=== PATIENT | male | born 1975 | race Caucasian/White ===

== ENCOUNTER 2016-10-16 08:04 | Day surgery (SDC) | payer MEDICAID, OTHER ==
[2016-10-11 09:10] VITALS: BMI 30.8
[~2016-10-16 08:04] MED LIST: LACTATED RINGERS 1,000 ML IV SCH; LIDOCAINE 1% 20 ML VIAL (10MG/ML) FOR IV START INTRADERMA PRN
[2016-10-16 08:37] VITALS: RESP 16; TEMP 97.7
[2016-10-16] MEDS ORDERED: PROPOFOL 10 MG/ML 20 ML VIAL IV ONE (09:04)
[2016-10-16] MEDS ORDERED: LIDOCAINE 1% INJ 10MG/ML (20 ML MDV) ONE (09:04)
[2016-10-16] MEDS ORDERED: MIDAZOLAM 2 MG/2 ML VIAL ONE (09:04)
--- NOTE | 2016-10-16 09:14 | P.GSHP ---
History of Present Illness H&P Date: 10/16/16 Chief Complaint: Change in bowel habits Patient here today for colonoscopy. He has never had 1 previously. He is having frequent diarrhea and this is a definite change in his bowel habits. Denies rectal bleeding. No family history of cancer polyps or colitis. Past Medical History Past Medical History: GERD/Reflux, Osteoarthritis (OA) History of Any Multi-Drug Resistant Organisms: None Reported Past Surgical History: Hernia Repair, Tonsillectomy Additional Past Surgical History / Comment(s): RIGHT AND LEFT EAR SURGERY, SINUS SURGERY,ORIF LEFT WRIST, LEFT HAND SURGERY, Past Anesthesia/Blood Transfusion Reactions: No Reported Reaction Past Psychological History: No Psychological Hx Reported Smoking Status: Former smoker Past Alcohol Use History: Rare Additional Past Alcohol Use History / Comment(s): STARTED SMOKING AT AGE 14 QUIT 2010 SMOKED 1PPD Past Drug Use History: Marijuana Additional Drug Use History / Comment(s): MEDICAL CARD MARIJUANA - Past Family History Mother Family Medical History: No Reported History Medications and Allergies Home Medications Medication Instructions Recorded Confirmed Type Amoxicillin 875 mg PO Q12HR 10/11/16 10/11/16 History Cyclobenzaprine [Flexeril] 10 mg PO HS PRN 10/11/16 10/11/16 History Meloxicam [Mobic] 7.5 mg PO DAILY 10/11/16 10/11/16 History Pantoprazole Sodium [Protonix] 40 mg PO DAILY 10/11/16 10/11/16 History traMADol HCL [Ultram] 100 mg PO Q6HR PRN 10/11/16 10/11/16 History Allergies Allergy/AdvReac Type Severity Reaction Status Date / Time bacitracin Allergy Rash/Hives Verified 10/16/16 08:13 cephalexin [From Keflex] Allergy Rash/Hives Verified 10/16/16 08:13 codeine Allergy Rash/Hives Verified 10/16/16 08:13 Iodinated Contrast Media - Allergy Rash/Hives Verified 10/16/16 08:13 Oral and neomycin Allergy Rash/Hives Verified 10/16/16 08:13 [From Neosporin ([id number])] polymyxin B Allergy Rash/Hives Verified 10/16/16 08:13 [From Neosporin ([id number])] shellfish derived [Shellfish] Allergy Rash/Hives Verified 10/16/16 08:13 Surgical - Exam Vital Signs Temp Pulse Resp BP Pulse Ox 97.7 F 66 16 139/81 96 10/16/16 08:36 10/16/16 08:36 10/16/16 08:36 10/16/16 08:36 10/16/16 08:36 Physical exam: General: Well-developed, well-nourished HEENT: Normocephalic, sclerae nonicteric Abdomen: Nontender, nondistended Extremities: No edema Neuro: Alert and oriented Assessment and Plan (1) Change in bowel habits Narrative/Plan: Will proceed with colonoscopy today. Risks of bleeding and perforation discussed. Status: Acute
--- NOTE | 2016-10-16 09:29 | P.PCN ---
Date of Procedure: 10/16/16 Procedure(s) Performed: PREOPERATIVE DIAGNOSIS: Change in bowel habits POSTOPERATIVE DIAGNOSIS: Normal exam PROCEDURE: Colonoscopy with biopsy ANESTHESIA: MAC SURGEON: Farshad Smith M.D. SPECIMENS: Random colon ENDOSCOPIC PROCEDURE: The patient was placed on the endoscopy table in the left decubitus position. The Olympus colonoscope was inserted into the anus and passed under direct visualization to the base of the cecum. The appendiceal orifice was visualized. From that point the scope was slowly withdrawn inspecting all surfaces carefully. There were no neoplastic inflammatory or polypoid lesions throughout the cecum, ascending, transverse, descending, sigmoid and rectum. Random biopsies were taken throughout the colon to rule out microscopic colitis. There was no diverticulosis noted. Digital rectal examination was normal. The patient was taken to the recovery room in stable condition per anesthesia guidelines. RECOMMENDATIONS: Await biopsy results.
[2016-10-16 09:51] VITALS: BP 103/74; PULSE 68
== END 2016-10-16 10:35 | disposition home or self-care (01) ==
LOC: ORWHC2ENDO 08:04
PROVIDERS: ATTEND Surgery
DX: R19.7 Diarrhea, unspecified (principal); K21.9 Gastro-esophageal reflux disease without esophagitis; F17.200 Nicotine dependence, unspecified, uncomplicated; M19.90 Unspecified osteoarthritis, unspecified site; Z79.1 Long term (current) use of non-steroidal anti-inflammatories (NSAID); Z79.2 Long term (current) use of antibiotics; Z79.899 Other long term (current) drug therapy; Z88.5 Allergy status to narcotic agent; Z88.8 Allergy status to other drugs, medicaments and biological substances; Z88.1 Allergy status to other antibiotic agents; Z91.041 Radiographic dye allergy status
CPT/HCPCS: 88305; 45380; J2250; J2001; J2704; 99153

== ENCOUNTER → 2016-10-23 | Outpatient (CLI) | payer OTHER ==
--- NOTE | 2016-10-23 21:17 | MR ---
EXAMINATION TYPE: MR lumbar spine wo con DATE OF EXAM: 10/23/2016 4:02 PM COMPARISON: NONE HISTORY: LBP, BLE radic for years, no trauma/surgery TECHNIQUE: Multiplanar, multisequence images of the lumbar spine were acquired. L1-L2: Normal disc appearance without desiccation. No herniation, protrusion or disc bulging. No ca nal stenosis is present. Foramina are patent bilaterally. L2-L3: Normal disc appearance without desiccation. No herniation, protrusion or disc bulging. No ca nal stenosis is present. Foramina are patent bilaterally. L3-L4: Normal disc appearance without desiccation. No herniation, protrusion or disc bulging. No ca nal stenosis is present. Foramina are patent bilaterally. L4-L5: Moderate disc desiccation noted. Right paracentral disc herniation subligamentous in location effaces the ventral thecal sac. There is no evidence for central stenosis or lateral recess stenosis. Mild right foraminal encroachment. L5-S1: Normal disc appearance without desiccation. No herniation, protrusion or disc bulging. No ca nal stenosis is present. Foramina are patent bilaterally. Lumbar segments are intact. No paraspinal masses are identified. Conus medullaris has a normal appe arance. IMPRESSION: Moderate disc desiccation noted. Right paracentral disc herniation subligamentous in location effaces the ventral thecal sac. There is no evidence for central stenosis or lateral recess stenosis. Mild r ight foraminal encroachment.
== END | disposition home or self-care (01) ==
LOC: RADMRIMAIN 15:12
PROVIDERS: ATTEND Family Medicine
DX: M51.16 Intervertebral disc disorders with radiculopathy, lumbar region (principal)
CPT/HCPCS: 72148

== ENCOUNTER 2016-12-12 07:46 | Day surgery (SDC) | payer MEDICAID ==
[2016-11-26 14:53] VITALS: BMI 30.8
[~2016-12-12 07:46] MED LIST changes: +DEXAMETHASONE SOD PHOSPHATE 10 MG/ML 1 ML VIAL IV ONE; +DEXAMETHASONE SOD PHOSPHATE 4 MG/ML 1 ML VIAL IV ONE; +FAMOTIDINE 20 MG/2 ML VIAL IV ONE; +FAMOTIDINE 20 MG/2 ML VIAL IV PRN; +HYDROmorphone 1 MG/ML 1 ML SYRINGE IVP PRN; +MIDAZOLAM 2 MG/2 ML VIAL IV PRN; +ONDANSETRON 4 MG/2 ML VIAL IVP ONE
[2016-12-12] MEDS ORDERED: OXYMETAZOLINE 0.05% NASL SPRAY 15 ML EA NOSTRIL ONE (08:39)
[2016-12-12] MEDS ORDERED: NEOSTIGMINE 1 MG/ML 10 ML VIAL ONE (09:26)
[2016-12-12] MEDS ORDERED: PROPOFOL 10 MG/ML 20 ML VIAL IV ONE (09:26)
[2016-12-12] MEDS ORDERED: GLYCOPYRROLATE 0.2 MG/ML 2 ML VIAL ONE (09:26)
[2016-12-12] MEDS ORDERED: ROCURONIUM BROMIDE 10 MG/ML 10 ML VIAL IV ONE (09:26)
[2016-12-12] MEDS ORDERED: LIDOCAINE 1% INJ 10MG/ML (20 ML MDV) ONE (09:26)
[2016-12-12] MEDS ORDERED: MIDAZOLAM 2 MG/2 ML VIAL ONE (09:26)
[2016-12-12] MEDS ORDERED: fentaNYL (PF) 50 MCG/ML 2 ML AMP ONE (09:26)
[2016-12-12] MEDS ORDERED: SUCCINYLCHOLINE CHLORIDE 100 MG/5 ML SYR IV ONE (09:26)
[2016-12-12] MEDS ORDERED: LIDOCAINE 1%-EPI 1:100,000 20 ML VIAL SQ ONE ×2 (09:44)
[2016-12-12] MEDS ORDERED: FLUORESCEIN STRIPS 1 MG STRIP MISCELLANE ONE (09:44)
[2016-12-12] MEDS ORDERED: CIPROFLOXACIN-DEXAMETH 0.3-0.1% DROPS 7.5 ML BTL RIGHT EAR ONE (09:44)
[2016-12-12] MEDS ORDERED: EPINEPHrine 1 MG/ML (MDV) 30 ML VIAL TOPICAL ONE (09:45)
[2016-12-12] MEDS ORDERED: GELATIN SPONGE,ABSORB (SMALL) 1 EACH SPONGE TOPICAL ONE (09:57)
[2016-12-12 10:53] VITALS: TEMP 97.1
--- NOTE | 2016-12-12 11:00 | P.OP ---
Date of Procedure: 12/12/16 Preoperative Diagnosis: Right tympanic membrane perforation with persistent eustachian tube dysfunction Chronic sinusitis Right-sided otorrhea Conductive hearing loss right ear ALLERGIC rhinitis Postoperative Diagnosis: Same Procedure(s) Performed: Right tympanoplasty with lysis of middle ear adhesions Right direct microscopic tympanostomy and tube placement Right eustachian tuboplasty, balloon Bilateral functional endoscopic sinus surgery of the maxillary, ethmoid (total) , and frontal sinuses Anesthesia: GETA Surgeon: Edmund Knowles Estimated Blood Loss (ml): 5 Pathology: other (Sinonasal) Condition: stable Disposition: PACU Indications for Procedure: This patient presented to the office with a variety of different issues. Patient complains of nasal obstruction right-sided hearing loss otorrhea etc. he was found have a perforated eardrum in the right ear with persistent otorrhea from a chronic infection. He was found have a conductive hearing loss also. He does have a history of ALLERGIES but has developed a chronic sinus drainage. After long discussion, we decided to proceed forward with a right tympanoplasty with lysis of middle ear adhesions along with a tube placement for ventilation would be controlled. A right-sided eustachian tuboplasty was recommended along with revisional functional endoscopic sinus surgery. All risks, benefits, and alternative therapies were discussed in detail. Consent was obtained and all questions were answered. Operative Findings: Patient had a large right perforated eardrum along with middle ear adhesions. The eustachian tube orifice was edematous. Patient had evidence of chronic sinusitis of the maxillary ethmoid and frontal sinuses. Sphenoid sinuses did not show any evidence of infectious issues. Description of Procedure: This patient was taken to the operative room and placed in the supine position. A general inhalation anesthetic is administered to the patient by mask and subsequently intubated with a cuffed endotracheal tube by the department of anesthesia with a functioning IV line in place. The patient was monitored throughout the entire case by the department of anesthesia. The right ear was sterilely prepped and draped in usual fashion. The ear canal was injected with lidocaine 1% with epinephrine 1 100,000. A large posterior perforation was noted in the right ear. The rim of the perforation was removed with a house pack and biopsy forceps. A tympanomeatal flap was developed and the eardrum was elevated. The middle ear was entered and all small adhesions were noted which were lysed with a house pack. We filled the middle ear with cut Gelfoam. We then placed a bio design graft that was cut to size and placed it as an underlay graft. The tympanomeatal flap was then reflected back into her normal anatomic position. A small tympanostomy incision was made inferiorly and anteriorly and an ultraseal tube was placed. The ear canal was filled with cut Gelfoam. A Josue pack was placed in the ear which will be removed when the patient returns to the office in 1 week. Attention was then paid to the nose were with use of endoscopic visualization we injected the lateral nasal wall with lidocaine 1% with epinephrine 1 100,000. The examine the nose with a 0 endoscope and performed all procedures with endoscopic visualization. We identified the eustachian tube orifice and with use of the neck Claritin balloon we did insufflation 3 times with 1 minute per insufflation. The eustachian tube orifice was insufflated appropriately. The balloon was removed and the sinuses were inspected. There was some polypoid material and was blocking the maxillary sinuses we open the maxillary sinuses with a microdebrider bilaterally and we entered the maxillary sinuses and we remove diseased tissue from the maxillary sinuses bilaterally with endoscopic visualization. We then completed a total ethmoidectomy with removal of all septations and removal of diseased tissue from the ethmoid sinuses bilaterally. I see ethmoid sinuses were opened bilaterally and all diseased tissue and septations were removed bilaterally we entered the frontal sinuses and open the nasal frontal duct and we explored the frontal sinuses and we remove diseased tissue from the orifice of the frontal sinus. The sphenoid sinus appeared open and functioning well. The patient tolerated this well. Xerogel was inserted bilaterally. The patient tolerated this well. Patient will return in 1 week for bilateral Josue ear pack removals. The Josue packs are a Merocel sponge sponge packs this in the ear canal. We will remove those packs and the patient will start on ofloxacin drops afterwards. Patient is to contact me if any from should arise.
[2016-12-12] MEDS ORDERED: ONDANSETRON 4 MG/2 ML VIAL IVP ONE (11:11)
[2016-12-12] MEDS: HYDROmorphone 1 MG/ML 1 ML SYRINGE IVP PRN ×2 (11:12→11:21)
[2016-12-12 11:17] VITALS: RESP 18
[2016-12-12] MEDS ORDERED: LACTATED RINGERS 1,000 ML IV ONE (11:24)
[2016-12-12] MEDS ORDERED: IBUPROFEN 200 MG TAB PO ONE ×2 (12:29)
[2016-12-12 14:37] VITALS: BP 106/63; PULSE 70
== END 2016-12-12 14:42 | disposition home or self-care (01) ==
LOC: OR 07:46
PROVIDERS: ATTEND Otolaryngology
DX: H72.91 Unspecified perforation of tympanic membrane, right ear (principal); H69.91 Unspecified Eustachian tube disorder, right ear; J32.9 Chronic sinusitis, unspecified; H92.11 Otorrhea, right ear; H90.2 Conductive hearing loss, unspecified; J30.9 Allergic rhinitis, unspecified; K21.9 Gastro-esophageal reflux disease without esophagitis; E78.00 Pure hypercholesterolemia, unspecified; E78.5 Hyperlipidemia, unspecified; G89.29 Other chronic pain; Z79.2 Long term (current) use of antibiotics; Z79.899 Other long term (current) drug therapy; Z88.8 Allergy status to other drugs, medicaments and biological substances; Z88.1 Allergy status to other antibiotic agents; Z88.5 Allergy status to narcotic agent; Z91.013 Allergy to seafood; Z91.041 Radiographic dye allergy status; Z87.891 Personal history of nicotine dependence
CPT/HCPCS: 88305; 69631; 69949; 31267; 31255; 31276; C1763; J0171; J2250; J1100; J2710; J2405; J2001; J3010; J1170; J0330; J2704

== ENCOUNTER 2017-06-03 13:33 | Emergency (ER) | payer MEDICAID ==
[2017-06-03 13:57] VITALS: RESP 18
[2017-06-03] MEDS ORDERED: MORPHINE SULFATE 4 MG/ML SYRINGE IVP STA (14:37)
[2017-06-03] MEDS ORDERED: KETOROLAC 30 MG/ML 1 ML VIAL IVP STA (14:37)
[2017-06-03] MEDS ORDERED: ONDANSETRON 4 MG/2 ML VIAL IVP STA (14:37)
[2017-06-03] MEDS ORDERED: SODIUM CHLORIDE 0.9% 2,000 ML IV STA (14:37)
--- NOTE | 2017-06-03 14:47 | ED ---
Abdominal Pain HPI - General Chief Complaint: Abdominal Pain Stated Complaint: Back and Groin Pain Time Seen by Provider: 06/03/17 14:11 Source: patient Mode of arrival: ambulatory Limitations: no limitations - History of Present Illness Initial Comments: Patient is a 41-year-old male who presents with a chief complaint of groin pain. He states that his groin pain is worse on the left than on the right though he does have pain on both sides. He states the pain radiates to the back. Is unable to characterize his pain though he states that this is been going on for about 2 weeks now, worse over the last 3 or 4 days. He states that there is nothing aggravating or alleviating. Patient takes tramadol for pain at home and he states that normally this takes the edge off however yesterday he did not. Timing is constant. Patient has a significant history of bilateral inguinal hernia repairs were done several years ago. He states that the left was done before the right, and he thinks that was done in 2002. Patient states that he recently had his DOT physical when they found him to have blood in his urine. Patient states that he is supposed to schedule an ultrasound on an outpatient basis for evaluation of his bladder. MD Complaint: abdominal pain Onset/Timin -: week(s) Location: suprapubic Radiation: back Migration to: no migration Quality: aching, sharp Consistency: constant Improves With: nothing Worsens With: nothing Associated Symptoms: nausea, chills - Related Data Home Medications Medication Instructions Recorded Confirmed Cyclobenzaprine [Flexeril] 10 mg PO HS PRN 10/11/16 06/03/17 Pantoprazole Sodium [Protonix] 40 mg PO QAM 10/11/16 06/03/17 traMADol HCL [Ultram] 50 mg PO Q6HR PRN 10/11/16 06/03/17 Albuterol Inhaler [Ventolin Hfa 1 - 2 puff INHALATION RT-QID PRN 06/03/17 Inhaler] Budesonide-Formot 160-4.5 Mcg 2 puff INHALATION RT-BID 06/03/17 06/03/17 [Symbicort 160-4.5 Mcg Inhaler] Fluticasone Nasal Ke[place] [Flonase 1 spray EA NOSTRIL DAILY PRN 06/03/17 06/03/17 Nasal Ke[place]] Montelukast [Singulair] 10 mg PO HS 06/03/17 06/03/17 Previous Rx's Medication Instructions Recorded Ciprofloxacin Ophth Soln [Cipro 1 drops BOTH EYES Q4HR #1 bottle 06/03/17 0.3% Ophth Soln] Ibuprofen [Motrin] 0 mg PO Q6HR #30 tab 06/03/17 Allergies Allergy/AdvReac Type Severity Reaction Status Date / Time bacitracin Allergy Rash/Hives Verified 06/03/17 13:58 cephalexin [From Keflex] Allergy Rash/Hives Verified 06/03/17 13:58 codeine Allergy Rash/Hives Verified 06/03/17 13:58 Iodinated Contrast- Oral and Allergy Rash/Hives Verified 06/03/17 13:58 IV Dye [Iodinated Contrast Media - Oral and] neomycin Allergy Rash/Hives Verified 06/03/17 13:58 [From Neosporin ([id number])] polymyxin B Allergy Rash/Hives Verified 06/03/17 13:58 [From Neosporin ([id number])] shellfish derived [Shellfish] Allergy Rash/Hives Verified 06/03/17 13:58 Review of Systems ROS Statement: Those systems with pertinent positive or pertinent negative responses have been documented in the HPI. ROS Other: All systems not noted in ROS Statement are negative. Constitutional: Reports: night sweats. 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 Denies: vomiting Genitourinary: Denies: urgency, dysuria Musculoskeletal: Reports: back pain Skin: Denies: rash Neurological: Denies: headache Past Medical History Past Medical History: Chest Pain / Angina, GERD/Reflux, Hyperlipidemia, Osteoarthritis (OA) Additional Past Medical History / Comment(s): States hx chest pain in the past, Past and current problems with recurrent ear infections and ruptured eardrums. Chronic back pain. History of Any Multi-Drug Resistant Organisms: None Reported Past Surgical History: Hernia Repair, Tonsillectomy Additional Past Surgical History / Comment(s): RIGHT AND LEFT EAR SURGERY, SINUS SURGERY, LEFT WRIST, LEFT HAND SURGERY, HERNIA REPAIR X2. Past Anesthesia/Blood Transfusion Reactions: No Reported Reaction Past Psychological History: No Psychological Hx Reported Smoking Status: Former smoker Past Alcohol Use History: Rare Past Drug Use History: Marijuana - Past Family History Mother Family Medical History: No Reported History General Exam Limitations: no limitations General appearance: alert, in no apparent distress Head exam: Present: atraumatic, normocephalic Eye exam: Present: PERRL ENT exam: Present: mucous membranes moist Neck exam: Present: normal inspection Respiratory exam: Present: normal lung sounds bilaterally. Absent: wheezes, rhonchi Cardiovascular Exam: Present: regular rate, normal rhythm, normal heart sounds GI/Abdominal exam: Present: soft, tenderness (Bilateral groin, right worst on left.). Absent: distended Rectal exam: Present: deferred exam: Present: normal inspection, circumcision. Absent: testicular tenderness, urethral discharge, scrotal swelling Extremities exam: Present: normal inspection Back exam: Present: normal inspection. Absent: tenderness, CVA tenderness (R), CVA tenderness (L) Neurological exam: Present: alert, oriented X3 Psychiatric exam: Present: normal affect, normal mood Skin exam: Present: warm, dry, intact, normal color. Absent: rash Course Vital Signs 06/03/17 06/03/17 13:52 16:57 Temperature 98 F 98 F Pulse Rate 79 55 L Respiratory 18 18 Rate Blood Pressure 140/78 130/78 O2 Sat by Pulse 98 100 Oximetry Medical Decision Making - Medical Decision Making Patient presents with a chief complaint of bilateral groin pain. Patient has significant history of bilateral hernia repairs. Patient was found to have blood in his urine yesterday and states that his urine has been darker recently. Patient does not have any flank pain or testicular pain at this time. History and physical examination is concerning for possible inguinal hernia, urinary tract infection. Low suspicion for etiologies such as testicular torsion. Patient was given symptomatically for pain and nausea. We' ll send basic labs, we'll send patient for CT of the abdomen and pelvis. Computed tomography scan will be done without contrast as patient admits to having an ALLERGIC reaction to contrast media that caused him to have diffuse rash, difficulty breathing. Urinalysis initially shows blood in the urine, however microscopic examination shows less than 1 rbc. CPK however is elevated at 253 which likely explains the urine discoloration. Kidney function and electrolytes appear to be within normal limits. Labs are otherwise unremarkable. Patient is feeling better after pain and nausea medicines. Computed tomography scan of the abdomen and pelvis without contrast are unremarkable. Patient will get 2 L of IV hydration , and have a repeat CPK. Patient will be referred to general surgery for evaluation of hernias. Patient was instructed to follow-up with his primary care doctor or to return to the emergency department if his symptoms worsen or change. - Lab Data Result diagrams: 06/03/17 14:20 06/03/17 14:20 Lab Results 06/03/17 06/03/17 06/03/17 Range/Units 14:20 14:20 16:09 WBC 9.8 (3.8-10.6) k/uL RBC 5.00 (4.30-5.90) m/uL Hgb 16.1 (13.0-17.5) gm/dL Hct 45.4 (39.0-53.0) % MCV 90.8 (80.0-100.0) fL MCH 32.1 (25.0-35.0) pg MCHC 35.4 (31.0-37.0) g/dL RDW 13.2 (11.5-15.5) % Plt Count 269 (150-450) k/uL Neutrophils % 80 % Lymphocytes % 16 % Monocytes % 3 % Eosinophils % 1 % Basophils % 0 % Neutrophils # 7.8 H (1.3-7.7) k/uL Lymphocytes # 1.6 (1.0-4.8) k/uL Monocytes # 0.3 (0-1.0) k/uL Eosinophils # 0.1 (0-0.7) k/uL Basophils # 0.0 (0-0.2) k/uL Sodium 143 (137-145) mmol/L Potassium 4.0 (3.5-5.1) mmol/L Chloride 106 (98-107) mmol/L Carbon Dioxide 24 (22-30) mmol/L Anion Gap 13 mmol/L BUN 15 (9-20) mg/dL Creatinine 0.90 (0.66-1.25) mg/dL Est GFR (MDRD) Af Amer >60 (>60 ml/min/1.73 sqM) Est GFR (MDRD) Non-Af >60 (>60 ml/min/1.73 sqM) Glucose 96 (74-99) mg/dL Calcium 10.0 (8.4-10.2) mg/dL Total Bilirubin 0.7 (0.2-1.3) mg/dL AST 28 (17-59) U/L ALT 61 (21-72) U/L Alkaline Phosphatase 85 (38-126) U/L Creatine Kinase 253 H (55-170) U/L Total Protein 7.9 (6.3-8.2) g/dL Albumin 5.0 (3.5-5.0) g/dL Lipase 114 (23-300) U/L Urine Color Yellow Urine Appearance Cloudy (Clear) Urine pH 5.5 (5.0-8.0) Ur Specific Warren 1.025 (1.001-1.035) Urine Protein Trace H (Negative) Urine Glucose (UA) Negative (Negative) Urine Ketones Negative (Negative) Urine Blood Trace H (Negative) Urine Nitrite Negative (Negative) Urine Bilirubin Negative (Negative) Urine Urobilinogen <2.0 (<2.0) mg/dL Ur Leukocyte Esterase Negative (Negative) Urine RBC <1 (0-5) /hpf Urine WBC 2 (0-5) /hpf Ur Squamous Epith Cells <1 (0-4) /hpf Amorphous Sediment Rare H (None) /hpf Hyaline Casts 2 (0-2) /lpf Urine Mucus Occasional H (None) /hpf 06/03/17 Range/Units 18:20 WBC (3.8-10.6) k/uL RBC (4.30-5.90) m/uL Hgb (13.0-17.5) gm/dL Hct (39.0-53.0) % MCV (80.0-100.0) fL MCH (25.0-35.0) pg MCHC (31.0-37.0) g/dL RDW (11.5-15.5) % Plt Count (150-450) k/uL Neutrophils % % Lymphocytes % % Monocytes % % Eosinophils % % Basophils % % Neutrophils # (1.3-7.7) k/uL Lymphocytes # (1.0-4.8) k/uL Monocytes # (0-1.0) k/uL Eosinophils # (0-0.7) k/uL Basophils # (0-0.2) k/uL Sodium (137-145) mmol/L Potassium (3.5-5.1) mmol/L Chloride (98-107) mmol/L Carbon Dioxide (22-30) mmol/L Anion Gap mmol/L BUN (9-20) mg/dL Creatinine (0.66-1.25) mg/dL Est GFR (MDRD) Af Amer (>60 ml/min/1.73 sqM) Est GFR (MDRD) Non-Af (>60 ml/min/1.73 sqM) Glucose (74-99) mg/dL Calcium (8.4-10.2) mg/dL Total Bilirubin (0.2-1.3) mg/dL AST (17-59) U/L ALT (21-72) U/L Alkaline Phosphatase (38-126) U/L Creatine Kinase 203 H (55-170) U/L Total Protein (6.3-8.2) g/dL Albumin (3.5-5.0) g/dL Lipase (23-300) U/L Urine Color Urine Appearance (Clear) Urine pH (5.0-8.0) Ur Specific Warren (1.001-1.035) Urine Protein (Negative) Urine Glucose (UA) (Negative) Urine Ketones (Negative) Urine Blood (Negative) Urine Nitrite (Negative) Urine Bilirubin (Negative) Urine Urobilinogen (<2.0) mg/dL Ur Leukocyte Esterase (Negative) Urine RBC (0-5) /hpf Urine WBC (0-5) /hpf Ur Squamous Epith Cells (0-4) /hpf Amorphous Sediment (None) /hpf Hyaline Casts (0-2) /lpf Urine Mucus (None) /hpf Disposition Clinical Impression: Inguinal hernia, Elevated CPK, Back pain Disposition: HOME SELF-CARE Condition: Good Instructions: Dehydration (ED), Inguinal Hernia (ED) Prescriptions: Ciprofloxacin Ophth Soln [Cipro 0.3% Ophth Soln] 1 drops BOTH EYES Q4HR #1 bottle Ibuprofen [Motrin] 0 mg PO Q6HR #30 tab Referrals: Chacho Lee MD [Primary Care Provider] - 1-2 days Vi Madden MD [STAFF PHYSICIAN] - 1-2 days
[2017-06-03 15:10] LABS: Basophils % (A) 0 %; CH 31.8; CHCM 35.2; Eosinophils # (A) 0.1 k/uL (0-0.7); Eosinophils % (A) 1 %; HCT 45.4 % (39.0-53.0); HGB 16.1 gm/dL (13.0-17.5); Luc # (Auto) 0.07; Luc % (Auto) 1; Lymphocytes # (A) 1.6 k/uL (1.0-4.8); Lymphocytes % (A) 16 %; MCH 32.1 pg (25.0-35.0); MCHC 35.4 g/dL (31.0-37.0); MCV 90.8 fL (80.0-100.0); Mean Platelet Volume 7.4; Monocytes # (A) 0.3 k/uL (0-1.0); Monocytes % (A) 3 %; Neutrophils # (A) 7.8 k/uL (1.3-7.7); Neutrophils % (A) 80 %; RDW 13.2 % (11.5-15.5); WBC 9.8 k/uL (3.8-10.6); WBC (Perox) 9.52
[2017-06-03 15:19] LABS: ALT 61 U/L (21-72); AST 28 U/L (17-59); Alkaline Phosphatase 85 U/L (38-126); Anion Gap 13 mmol/L; Blood Urea Nitrogen 15 mg/dL (9-20); Carbon Dioxide 24 mmol/L (22-30); Chloride 106 mmol/L (98-107); Creatine Kinase 253 U/L (55-170); Glucose 96 mg/dL (74-99); Non-African American GFR(MDRD) >60 (>60 ml/min/1.73 sqM); Sodium 143 mmol/L (137-145); Total Bilirubin 0.7 mg/dL (0.2-1.3); Total Protein 7.9 g/dL (6.3-8.2)
--- NOTE | 2017-06-03 15:47 | CT ---
EXAMINATION TYPE: CT renal stones wo con DATE OF EXAM: 06/03/2017 COMPARISON: NONE INDICATION: Bilateral groin pain x 1 year. DLP: 622.60 mGycm, Automated exposure control for dose reduction was used. CONTRAST: 0 mL of Omnipaque 300. Study performed without Oral Contrast TECHNIQUE: Axial images were obtained from above the diaphragm to the pubic rami in the axial plane a t 5 mm thick sections. Reconstructed images are reviewed on the computer in the coronal plane. FINDINGS: Limited CT sections are obtained the lung bases. The lung bases are clear. Moderate-sized hiatal he rnia is present. CT ABDOMEN: Liver: Normal Spleen: Normal Pancreas: Normal Adrenal glands: The adrenal glands are normal. Gallbladder: Normal Kidneys: No masses are evident. No hydronephrosis is present. No cysts are present. Very faint nadia cifications may be at the inferior poles of the bilateral kidneys. No hydronephrosis or hydroureter i s evident. Consider medullary sponge kidney within the differential. Aorta: Normal Inferior vena cava: Normal. CT PELVIS: Loops of bowel within the abdomen and pelvis are normal. Study is performed without oral contrast limiting the evaluation. Appendix: Normal as visualized. Urinary bladder: Normal. Genitourinary structures: Prostate is somewhat prominent. Osseous structures: No suspicious lytic or sclerotic lesions. IMPRESSIONS: 1. Normal noncontrast CT abdomen and pelvis. 2. Medullary sponge kidney may be present. No obstructing renal or ureteral stones are evident. .
[2017-06-03 16:27] LABS: Amorphous Sediment,Urine Rare /hpf; Appearance,Urine Cloudy (Clear); Bilirubin,Urine Negative (Negative); Glucose,Urine (UA) Negative (Negative); Ketones,Urine Negative (Negative); Leukocyte Esterase,Urine Negative (Negative); Mucus,Urine Occasional /hpf; Nitrite,Urine Negative (Negative); PH, Urine 5.5 (5.0-8.0); Particle Count 7210; Protein,Urine Trace (Negative); RBC,Urine <1 /hpf (0-5); Specific Gravity,Urine 1.025 (1.001-1.035); Squamous Epithelial Cell,Urine <1 /hpf (0-4); UA Billing (MACRO vs. MICRO) MICRO; Urobilinogen,Urine <2.0 mg/dL (<2.0); WBC,Urine 2 /hpf (0-5)
[2017-06-03] MEDS ORDERED: CIPROFLOXACIN 0.3% OPHTH SOLN 2.5 ML BTL BOTH EYES STA (16:32)
[2017-06-03] MEDS ORDERED: ACETAMINOPHEN TAB 325 MG TAB PO STA (17:26)
[2017-06-03 19:01] VITALS: BP 136/79; PULSE 57; TEMP 97.4
== END 2017-06-03 19:01 | disposition home or self-care (01) ==
LOC: EC 13:33
DX: K40.90 Unilateral inguinal hernia, without obstruction or gangrene, not specified as recurrent (principal); R74.8 Abnormal levels of other serum enzymes; K21.9 Gastro-esophageal reflux disease without esophagitis; Z87.891 Personal history of nicotine dependence; Z88.1 Allergy status to other antibiotic agents; Z88.5 Allergy status to narcotic agent; Z91.041 Radiographic dye allergy status; Z79.51 Long term (current) use of inhaled steroids; Z91.013 Allergy to seafood; Z79.899 Other long term (current) drug therapy
CPT/HCPCS: 36415; 80053; 82550; 83690; 85025; 81001; 74150; 99284; 96374; 96375 ×2; 96361 ×2; J2270; J2405; J1885

== ENCOUNTER → 2017-06-05 | Outpatient (CLI) | payer MEDICAID ==
--- NOTE | 2017-06-05 09:16 | US ---
EXAMINATION TYPE: US scrotum with doppler. Grayscale and color Doppler Duplex imaging performed of carlos larry scrotum. DATE OF EXAM: 06/05/2017 COMPARISON: NONE CLINICAL HISTORY: N50.812 Left Testicular Pain R31.9 Hematuria. Patient stated has had left scrotal p ain x 1 year and denies trauma. EXAM MEASUREMENTS: TESTICLES: Right Testicle: 4.6 x 2.6 x 2.4 cm Left Testicle: 4.7 x 2.7 x 2.2 cm EPIDIDYMIS HEAD: Right Epididymis: 1.1 x 1.4 x 1.0 cm Left Epididymis: 1.1 x 1.3 x 1.5 cm Doppler performed to assess for testicular vascularity; good bilateral color flow and waveforms are s een. There is no evidence of testicular torsion. Presence of hydroceles: Small hydrocele is noted inferior Left Scrotal Sac with low level internal e choes = 3.7 x 1.8 x 0.8cm. Couple of cysts in epididymis with larger Left Epididymal Head Cyst = 0. 3 x 0.3 x 0.3cm. Presence of varicoceles: no IMPRESSION: 1. Left-sided hydrocele. 2. Epididymal cysts.
== END ==
LOC: RADUSWWP 07:45
PROVIDERS: ATTEND Family Medicine
DX: N50.3 Cyst of epididymis (principal); N43.3 Hydrocele, unspecified
CPT/HCPCS: 76870; 93975

== ENCOUNTER 2018-05-07 13:46 | Day surgery (SDC) | payer MEDICAID ==
[2018-05-07 14:06] VITALS: BP 122/75; PULSE 60; RESP 16; TEMP 98.1
== END 2018-05-07 15:47 | disposition home or self-care (01) ==
LOC: ORWHC2ENDO 13:46
PROVIDERS: ATTEND Internal Medicine Gastroenterology
DX: K21.9 Gastro-esophageal reflux disease without esophagitis (principal)
CPT/HCPCS: 91010

== ENCOUNTER → 2019-05-19 | Outpatient (CLI) | payer MEDICAID ==
--- NOTE | 2019-05-19 13:49 | US ---
EXAMINATION TYPE: US abdomen complete DATE OF EXAM: 05/19/2019 COMPARISON: NONE CLINICAL HISTORY: R10.10 UPPER ABD PAIN. EXAM MEASUREMENTS: Liver Length: 15.4 cm Gallbladder Wall: 0.2 cm CBD: 0.4 cm Spleen: 11.9 cm Right Kidney: 10.9 x 5.5 x 4.4 cm Left Kidney: 11.5 x 5.5 x 4.7 cm Large body habitus, extensive overlying bowel gas technically difficult study. Pancreas: wnl Liver: Increased attenuation, decreased visualization of vessels suggestive of fatty infiltrate. Thi s limits evaluation for hepatic masses. There is a focal geographic hypoechoic area seen adjacent to right hepatic vein may represent focal fatty sparing Gallbladder: wnl Evidence for sonographic Bruce's sign: no CBD: wnl Spleen: wnl Right Kidney: Superior pole obscured by bowel gas, no hydronephrosis or masses seen Left Kidney: No hydronephrosis or masses seen Upper IVC: wnl Abd Aorta: wnl The intrahepatic portion of the IVC and proximal abdominal aorta are within normal limits. There is no evidence of cholelithiasis. Common bile duct is unremarkable. The visualized portions of the de paz creas are homogenous. The spleen is unremarkable. Kidneys are symmetric and free of hydronephrosis. No renal lesions are seen. IMPRESSION: 1. Sonographic findings most commonly related to hepatic steatosis. Correlate with liver function kendy ts. Additionally geographic region of hypoattenuation near the right hepatic vein is seen that could represent focal fatty sparing. 2. No sonographic evidence of cholelithiasis or acute cholecystitis.
== END | disposition home or self-care (01) ==
LOC: RADUSWWP 10:55
PROVIDERS: ATTEND Family Medicine
DX: K76.0 Fatty (change of) liver, not elsewhere classified (principal)
CPT/HCPCS: 76700

== ENCOUNTER 2019-07-13 17:35 | Emergency (ER) | payer MEDICAID ==
[2019-07-13] MEDS ORDERED: LIDOCAINE 1% INJ 10MG/ML (20 ML MDV) SQ STA (18:35)
[2019-07-13 18:36] VITALS: BP 133/89; PULSE 60; RESP 18; TEMP 98.2
[2019-07-13] MEDS ORDERED: CLINDAMYCIN 150 MG CAP PO STA (19:26)
--- NOTE | 2019-07-13 19:42 | ED ---
General Adult HPI - General Chief complaint: Extremity Injury, Upper Stated complaint: Finger injury Time Seen by Provider: 07/13/19 18:33 Source: patient, RN notes reviewed, old records reviewed Mode of arrival: ambulatory Limitations: no limitations - History of Present Illness Initial comments: 44-year-old male patient density for chief complaint of injury to fifth digit of left hand. Patient works that he was using a large wrench working on a car when the wrench slipped, causing a trauma between the distal aspect of his fifth finger and left hand the wrench and the car metal frame. Patient reports is pain in this region. Patient states that tetanus is up-to-date. Patient denies any other complaints at this time. Systemic: Pt denies fatigue, fever/chills, rash. Pt denies weakness, night sweats, weight loss. Neuro: Pt denies headache, visual disturbances, syncope or pre-syncope. HEENT: Pt denies ocular discharge or irritation, otalgia, rhinorrhea, pharyngitis or notable lymphadenopathy. Cardiopulmonary: Pt denies chest pain, SOB, heart palpitations, dyspnea on exertion. Abdominal/GI: Pt denies abdominal pain, n/v/d. : Pt denies dysuria, burning w/ urination, frequency/urgency. Denies new onset urinary or bowel incontinence. MSK: Pt denies myalgia, loss of strength or function in extremities. Neuro: Pt denies new onset weakness, paresthesias. - Related Data Home Medications Medication Instructions Recorded Confirmed Cyclobenzaprine [Flexeril] 10 mg PO HS PRN 10/11/16 07/13/19 Pantoprazole Sodium [Protonix] 40 mg PO BID 10/11/16 07/13/19 traMADol HCL [Ultram] 50 mg PO Q6HR PRN 10/11/16 07/13/19 Albuterol Inhaler [Ventolin Hfa 1 - 2 puff INHALATION RT-QID PRN 06/03/17 07/13/19 Inhaler] Budesonide-Formot 160-4.5 Mcg 2 puff INHALATION RT-BID 06/03/17 07/13/19 [Symbicort 160-4.5 Mcg Inhaler] Fluticasone Nasal [place] [Flonase 1 spray EA NOSTRIL DAILY PRN 06/03/17 07/13/19 Nasal [place]] Montelukast [Singulair] 10 mg PO HS 06/03/17 07/13/19 Budesonide/Formoterol Fumarate 2 puff INHALATION BID 04/29/18 07/13/19 [Symbicort 80-4.5 Mcg Inhaler] Previous Rx's Medication Instructions Recorded Clindamycin HCl 300 mg PO Q6H 7 Days #28 cap 07/13/19 Allergies Allergy/AdvReac Type Severity Reaction Status Date / Time bacitracin Allergy Rash/Hives Verified 07/13/19 18:36 cephalexin [From Keflex] Allergy Rash/Hives Verified 07/13/19 18:36 codeine Allergy Nausea & Verified 07/13/19 18:36 Vomiting Iodinated Contrast Media Allergy Rash/Hives Verified 07/13/19 18:36 neomycin Allergy Rash/Hives Verified 07/13/19 18:36 [From Neosporin ([id number])] polymyxin B Allergy Rash/Hives Verified 07/13/19 18:36 [From Neosporin ([id number])] Review of Systems ROS Statement: Those systems with pertinent positive or pertinent negative responses have been documented in the HPI. ROS Other: All systems not noted in ROS Statement are negative. Past Medical History Past Medical History: Asthma, Chest Pain / Angina, GERD/Reflux, Hyperlipidemia, Osteoarthritis (OA) Additional Past Medical History / Comment(s): HIATAL HERNIA. States hx chest pain in the past. Past and current problems with recurrent ear infections and ruptured eardrums. Chronic back pain. History of Any Multi-Drug Resistant Organisms: None Reported Past Surgical History: Hernia Repair, Tonsillectomy Additional Past Surgical History / Comment(s): RIGHT AND LEFT EAR SURGERY, SINUS SURGERY, LEFT WRIST, LEFT HAND SURGERY, HERNIA REPAIR X2. COLONOSCOPY Past Anesthesia/Blood Transfusion Reactions: No Reported Reaction Past Psychological History: No Psychological Hx Reported Smoking Status: Former smoker Past Alcohol Use History: Rare Past Drug Use History: Marijuana - Past Family History Mother Family Medical History: No Reported History General Exam - General Exam Comments Initial Comments: Constitutional: NAD, AOX3, Pt has pleasant affect. HEENT: NC/AT, trachea midline, neck supple, no lymphadenopathy. Posterior pharynx non erythematous, without exudates. External ears appear normal, without discharge. Mucous membranes moist. Eyes PERRLA, EOM intact. There is no scleral icterus. No pallor noted. Cardiopulmonary: RRR, no murmurs, rubs or gallops, no JVD noted. Lungs CTAB in anterior and posterior stock. No peripheral edema. Abdominal exam: Abdomen soft and non-distended. Abdomen non-tender to palpation in all 4 quadrants. Bowel sounds active in LLQ. No hepatosplenomegaly. No ecchymosis Neuro: CN II-XII grossly intact. No nuchal rigidity. No raccon eyes, no thomas sign, no hemotympanum. No cervical spinal tenderness. MSK: Hematoma noted dorsal aspect of distal fifth digit left hand. Range of motion intact. Flexion extension intact at all joints. Sensation intact. Hematoma was drained with 23g needle. Wound was vigorously irrigated. Neurovascular intact. Patient placed in straight finger spint. No posterior calf tenderness bilaterally, homans sign negative bilaterally. Posterior tibialis and radial pulse +2 bilaterally. Sensation intact in upper and lower extremities. Full active ROM in upper and lower extremities, 5/5 stregnth. Limitations: no limitations Course Vital Signs 07/13/19 18:33 Temperature 98.2 F Pulse Rate 60 Respiratory 18 Rate Blood Pressure 133/89 O2 Sat by Pulse 99 Oximetry Medical Decision Making - Medical Decision Making 44-year-old male patient density for chief complaint of injury to fifth digit of left hand. Patient works that he was using a large wrench working on a car when the wrench slipped, causing a trauma between the distal aspect of his fifth finger and left hand the wrench and the car metal frame. Patient reports is pain in this region. Patient states that tetanus is up-to-date. Patient denies any other complaints at this time. Patient felt some stable, afebrile. Physical exam displayed: Hematoma noted dorsal aspect of distal fifth digit left hand. Range of motion intact. Flexion extension intact at all joints. Sensation intact. Hematoma was drained with 23g needle. Wound was vigorously irrigated. Plain film was positive for distal tuft fracture. Patient's straight vigorously. Patient said on clindamycin due to cephalosporin ALLERGY. Patient discharged with close outpatient follow-up with orthopedic hand surgeon. Case discussed with Dr. Austin. Disposition Clinical Impression: Finger fracture Disposition: HOME SELF-CARE Condition: Stable Instructions (If sedation given, give patient instructions): Finger Fracture (ED) Additional Instructions: Continue to wear finger splint. Follow up with PCP and orthopedic consult tomorrow. Return to ER if condition worsens. Take antibiotics as prescribed. Prescriptions: Clindamycin HCl 300 mg PO Q6H 7 Days #28 cap Is patient prescribed a controlled substance at d/c from ED?: No Referrals: Chacho Lee MD [Primary Care Provider] - 1-2 days Curtis Arcos DO [Medical Doctor] - 1-2 days
[2019-07-13] MEDS ORDERED: IBUPROFEN 600 MG STARTER PACK 4 TAB BTL PO STA (19:45)
--- NOTE | 2019-07-13 20:24 | XR ---
PROCEDURE: XR finger LT - 3V DATE AND TIME: 07/13/2019 7:05 PM CLINICAL INDICATION: PHH; laceration TECHNIQUE: Department protocol COMPARISON: None FINDINGS: There is extensive soft tissue swelling about the distal phalanx of the fifth finger. There is a nondisplaced tuft fracture of the distal phalanx of the fifth finger. IMPRESSION: Positive for tuft fracture.
== END 2019-07-13 19:59 | disposition home or self-care (01) ==
LOC: EC 17:35
DX: S62.525A Nondisplaced fracture of distal phalanx of left thumb, initial encounter for closed fracture (principal); J45.909 Unspecified asthma, uncomplicated; I25.2 Old myocardial infarction; K21.9 Gastro-esophageal reflux disease without esophagitis; E78.5 Hyperlipidemia, unspecified; M19.90 Unspecified osteoarthritis, unspecified site; Z79.51 Long term (current) use of inhaled steroids; Z79.899 Other long term (current) drug therapy; Z88.3 Allergy status to other anti-infective agents; Z87.891 Personal history of nicotine dependence; Z88.1 Allergy status to other antibiotic agents; Z88.5 Allergy status to narcotic agent; Z91.041 Radiographic dye allergy status; Z88.8 Allergy status to other drugs, medicaments and biological substances; W18.49XA Other slipping, tripping and stumbling without falling, initial encounter; Y93.89 Activity, other specified; Y92.009 Unspecified place in unspecified non-institutional (private) residence as the place of occurrence of the external cause
CPT/HCPCS: 73140; 99284; 10140; J2001

== ENCOUNTER → 2019-07-26 | Outpatient (CLI) | payer MEDICAID | END | disposition home or self-care (01) | LOC: LABWHC1 13:08 | PROVIDERS: ATTEND Orthopaedic Surgery | DX: E55.9 Vitamin D deficiency, unspecified (principal); M79.645 Pain in left finger(s); S67.197D Crushing injury of left little finger, subsequent encounter; S62.667D Nondisplaced fracture of distal phalanx of left little finger, subsequent encounter for fracture with routine healing; S61.307D Unspecified open wound of left little finger with damage to nail, subsequent encounter | CPT/HCPCS: 36415; 82306 ==

== ENCOUNTER 2019-08-20 22:02 | Emergency (ER) | payer MEDICAID ==
--- NOTE | 2019-08-20 22:34 | ED ---
General Adult HPI - General Chief complaint: Dizziness Stated complaint: Poss Propane Inhalation, Not feeling well Time Seen by Provider: 08/20/19 22:21 Source: patient Mode of arrival: ambulatory Limitations: no limitations - History of Present Illness Initial comments: Dictation was produced using [employer] dictation software. please excuse any grammatical, word or spelling errors. Chief Complaint: 44-year-old male presents with dizziness, nausea and headache History of Present Illness: 44-year-old male presents today with dizziness, nausea and headache. Patient states his symptoms started at home. Patient was in the garage for approximate 7 hours. 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 She states he was in the garage by himself during this whole time. He states his headache is holocranial. Feels slightly dizzy and nauseated. No vomiting. Patient has ever having headaches like this before. Denies any strokelike symptoms. No numb [place] or weakness to his extremities. Denies any visual changes. He denies that there was adequate ventilation and his work space. The ROS documented in this emergency department record has been reviewed and confirmed by me. Those systems with pertinent positive or negative responses have been documented in the HPI. All other systems are other negative and/or noncontributory. PHYSICAL EXAM: General Impression: Alert and oriented x3, not in acute distress HEENT: Normocephalic atraumatic, extra-ocular movements intact, pupils equal and reactive to light bilaterally, mucous membranes moist. Cardiovascular: Heart regular rate and rhythm, S1&S2 audible, no murmurs, rubs or gallops Chest: Lungs clear to auscultation bilaterally, no rhonchi, no wheeze, no rales Abdomen: Bowel sounds present, abdomen soft, non-tender, non-distended, no organomegaly Musculoskeletal: Pulses present and equal in all extremities, no peripheral edema Motor: no focal deficits noted Neurological: CN II-XII grossly intact, no focal motor or sensory deficits noted Skin: Intact with no visualized rashes Psych: Normal affect and mood ED course: 44-year-old male presents with dizziness headache and nausea. He was exposed to fumes from a propane generator for several hours. Signs upon arrival shows findings within acceptable limits. He is concerned that his symptoms represent carbon monoxide poisoning. Laboratory evaluation obtained. CBC, metabolic panels obtained showing no acute processes. No Acidosis. Venous blood gas shows pH of 7.4 with normal pCO2 and normal bicarb. Carbon dioxide is elevated at 9.5. Patient was placed on 15 L nonrebreather for several minutes. Patient is reevaluated with significant impr ovement of his headache. Patient told to abstain from prolonged exposure to combustion gases. Patient clear for discharge. Return parameters discussed. Patient understandable agreeable to disposition. - Related Data Home Medications Medication Instructions Recorded Confirmed Cyclobenzaprine [Flexeril] 10 mg PO HS PRN 10/11/16 07/13/19 Pantoprazole Sodium [Protonix] 40 mg PO BID 10/11/16 07/13/19 traMADol HCL [Ultram] 50 mg PO Q6HR PRN 10/11/16 07/13/19 Albuterol Inhaler [Ventolin Hfa 1 - 2 puff INHALATION RT-QID PRN 06/03/17 07/13/19 Inhaler] Budesonide-Formot 160-4.5 Mcg 2 puff INHALATION RT-BID 06/03/17 07/13/19 [Symbicort 160-4.5 Mcg Inhaler] Fluticasone Nasal [place] [Flonase 1 spray EA NOSTRIL DAILY PRN 06/03/17 07/13/19 Nasal [place]] Montelukast [Singulair] 10 mg PO HS 06/03/17 07/13/19 Budesonide/Formoterol Fumarate 2 puff INHALATION BID 04/29/18 07/13/19 [Symbicort 80-4.5 Mcg Inhaler] Previous Rx's Medication Instructions Recorded Clindamycin HCl 300 mg PO Q6H 7 Days #28 cap 07/13/19 Allergies Allergy/AdvReac Type Severity Reaction Status Date / Time bacitracin Allergy Rash/Hives Verified 08/20/19 22:15 cephalexin [From Keflex] Allergy Rash/Hives Verified 08/20/19 22:15 clindamycin Allergy Anaphylaxis Verified 08/20/19 22:15 codeine Allergy Nausea & Verified 08/20/19 22:15 Vomiting Iodinated Contrast Media Allergy Rash/Hives Verified 08/20/19 22:15 neomycin Allergy Rash/Hives Verified 08/20/19 22:15 [From Neosporin ([id number])] polymyxin B Allergy Rash/Hives Verified 08/20/19 22:15 [From Neosporin ([id number])] Review of Systems ROS Statement: Those systems with pertinent positive or pertinent negative responses have been documented in the HPI. ROS Other: All systems not noted in ROS Statement are negative. Past Medical History Past Medical History: Asthma, Chest Pain / Angina, GERD/Reflux, Hyperlipidemia, Osteoarthritis (OA) Additional Past Medical History / Comment(s): HIATAL HERNIA. States hx chest pain in the past. Past and current problems with recurrent ear infections and ruptured eardrums. Chronic back pain. History of Any Multi-Drug Resistant Organisms: None Reported Past Surgical History: Hernia Repair, Tonsillectomy Additional Past Surgical History / Comment(s): RIGHT AND LEFT EAR SURGERY, SINUS SURGERY, LEFT WRIST, LEFT HAND SURGERY, HERNIA REPAIR X2. COLONOSCOPY Past Anesthesia/Blood Transfusion Reactions: No Reported Reaction Past Psychological History: No Psychological Hx Reported Smoking Status: Former smoker Past Alcohol Use History: Rare Past Drug Use History: Marijuana - Past Family History Mother Family Medical History: No Reported History General Exam Limitations: no limitations Course Vital Signs 08/20/19 08/20/19 22:10 23:21 Temperature 98.2 F Pulse Rate 103 H 81 Respiratory 18 16 Rate Blood Pressure 124/88 124/88 O2 Sat by Pulse 96 96 Oximetry Medical Decision Making - Lab Data Result diagrams: 08/20/19 22:25 08/20/19 22:25 Lab Results 08/20/19 08/20/19 08/20/19 Range/Units 22:25 22:25 22:25 WBC 9.5 (3.8-10.6) k/uL RBC 4.66 (4.30-5.90) m/uL Hgb 14.5 (13.0-17.5) gm/dL Hct 42.6 (39.0-53.0) % MCV 91.5 (80.0-100.0) fL MCH 31.2 (25.0-35.0) pg MCHC 34.1 (31.0-37.0) g/dL RDW 12.6 (11.5-15.5) % Plt Count 217 (150-450) k/uL Neutrophils % 81 % Lymphocytes % 13 % Monocytes % 4 % Eosinophils % 1 % Basophils % 0 % Neutrophils # 7.6 (1.3-7.7) k/uL Lymphocytes # 1.3 (1.0-4.8) k/uL Monocytes # 0.4 (0-1.0) k/uL Eosinophils # 0.1 (0-0.7) k/uL Basophils # 0.0 (0-0.2) k/uL VBG pH 7.41 (7.31-7.41) VBG pCO2 39 (37-51) mmHg VBG HCO3 25 (24-28) mmol/L Carbon Monoxide, Quant 9.5 (<10.0) % Sodium 142 (137-145) mmol/L Potassium 4.0 (3.5-5.1) mmol/L Chloride 109 H (98-107) mmol/L Carbon Dioxide 22 (22-30) mmol/L Anion Gap 11 mmol/L BUN 21 H (9-20) mg/dL Creatinine 0.88 (0.66-1.25) mg/dL Est GFR (CKD-EPI)AfAm >90 (>60 ml/min/1.73 sqM) Est GFR (CKD-EPI)NonAf >90 (>60 ml/min/1.73 sqM) Glucose 109 H (74-99) mg/dL Calcium 9.5 (8.4-10.2) mg/dL Disposition Clinical Impression: Carbon monoxide exposure Disposition: HOME SELF-CARE Condition: Good Instructions (If sedation given, give patient instructions): Carbon Monoxide Poisoning (ED) Is patient prescribed a controlled substance at d/c from ED?: No Referrals: Chacho Lee MD [Primary Care Provider] - 1-2 days Time of Disposition: 23:51
[2019-08-20 22:41] LABS: Carbon Monoxide 9.5 % (<10.0); VBG PH 7.41 (7.31-7.41)
[2019-08-20 22:49] LABS: African American GFR (CKD) >90 (>60 ml/min/1.73 sqM); Anion Gap 11 mmol/L; Blood Urea Nitrogen 21 mg/dL (9-20); Calcium 9.5 mg/dL (8.4-10.2); Carbon Dioxide 22 mmol/L (22-30); Chloride 109 mmol/L (98-107); Glucose 109 mg/dL (74-99); Sodium 142 mmol/L (137-145)
[2019-08-20 22:52] LABS: Basophils % (A) 0 %; Eosinophils # (A) 0.1 k/uL (0-0.7); Eosinophils % (A) 1 %; HCT 42.6 % (39.0-53.0); HGB 14.5 gm/dL (13.0-17.5); Lymphocytes # (A) 1.3 k/uL (1.0-4.8); Lymphocytes % (A) 13 %; MCH 31.2 pg (25.0-35.0); MCHC 34.1 g/dL (31.0-37.0); MCV 91.5 fL (80.0-100.0); Mean Platelet Volume 7.1; Monocytes # (A) 0.4 k/uL (0-1.0); Monocytes % (A) 4 %; Neutrophils # (A) 7.6 k/uL (1.3-7.7); Neutrophils % (A) 81 %; Platelet Count 217 k/uL (150-450); RBC 4.66 m/uL (4.30-5.90); RDW 12.6 % (11.5-15.5); WBC 9.5 k/uL (3.8-10.6)
[2019-08-20] MEDS ORDERED: KETOROLAC 30 MG/ML 1 ML VIAL IVP STA (23:10)
[2019-08-20 23:23] VITALS: RESP 16
[2019-08-21 00:16] VITALS: BP 129/72; PULSE 72; TEMP 97.9
== END 2019-08-21 00:10 | disposition home or self-care (01) ==
LOC: EC 22:02
DX: T58.91XA Toxic effect of carbon monoxide from unspecified source, accidental (unintentional), initial encounter (principal); J45.909 Unspecified asthma, uncomplicated; K21.9 Gastro-esophageal reflux disease without esophagitis; M19.90 Unspecified osteoarthritis, unspecified site; Z87.891 Personal history of nicotine dependence; Z88.1 Allergy status to other antibiotic agents; Z88.5 Allergy status to narcotic agent; Z91.041 Radiographic dye allergy status; Z79.51 Long term (current) use of inhaled steroids; Z79.891 Long term (current) use of opiate analgesic; Z79.899 Other long term (current) drug therapy
CPT/HCPCS: 36415; 80048; 82375; 82803; 85025; 99284; 96374; J1885

== ENCOUNTER 2019-08-22 20:23 | Emergency (ER) | payer MEDICAID ==
[2019-08-22 20:32] VITALS: RESP 18; TEMP 97.7
[2019-08-22] MEDS ORDERED: ASPIRIN 81 MG PO STA (20:48)
--- NOTE | 2019-08-22 20:51 | ED ---
General Adult HPI - General Chief complaint: Chest Pain Stated complaint: SOB Time Seen by Provider: 08/22/19 20:35 Source: patient Mode of arrival: ambulatory - History of Present Illness Initial comments: Dictation was produced using [employer] dictation software. please excuse any grammatical, word or spelling errors. Chief Complaint: 44-year-old male who has past medical history of asthma, reflux, dyslipidemia presents with chest pain. History of Present Illness: 44-year-old male who presents with dull chest pain over the last 3 days. Patient was seen in the emergency department 3 days ago when his symptoms initially started. 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 He states that his carbon monoxide level slightly elevated. Since then his symptoms have slightly improved however his chest pain became worse. He states that his chest pain is dull. Denies any rating symptoms. He states that there is some clamminess that associated with the onset of his symptoms. Patient denies any history of cardiac disease. He does state that his symptoms are exacerbated with deep inspiration. denies any fever, chills or night sweats. He also complains of mild persistent headache. Denies any runny nose, nasal congestion, sore throat or cough. The ROS documented in this emergency department record has been reviewed and confirmed by me. Those systems with pertinent positive or negative responses have been documented in the HPI. All other systems are other negative and/or noncontributory. PHYSICAL EXAM: General Impression: Alert and oriented x3, not in acute distress HEENT: Normocephalic atraumatic, extra-ocular movements intact, pupils equal and reactive to light bilaterally, mucous membranes moist. Cardiovascular: Heart regular rate and rhythm, S1&S2 audible, no murmurs, rubs or gallops Chest: Lungs clear to auscultation bilaterally, no rhonchi, no wheeze, no rales Abdomen: Bowel sounds present, abdomen soft, non-tender, non-distended, no organomegaly Musculoskeletal: Pulses present and equal in all extremities, no peripheral edema Motor: no focal deficits noted Neurological: CN II-XII grossly intact, no focal motor or sensory deficits noted Skin: Intact with no visualized rashes Psych: Normal affect and mood ED course: 44-year-old male presents with atypical chest pain with typical features. Signs upon arrival are within acceptable limits. EKG shows sinus b radycardia. No signs of infarction or ischemia. Laboratory evaluation obtained. CBC, coag panel, metabolic panel was obtained. [address] sets trop[address] are negative. CT angios the chest and brain CT are u nremarkable. He denies his headache being worsening of his life. Not thunderclap in nature. No findings of pulmonary embolus. No other acute findings seen in the chest. Patient given headache cocktail. Patient was in the emergency department for several hours. His reevaluated with stable medical condition. Results were discussed with patient. Patient is clear for discharge however he understands that he needs to follow up with his primary care doctor. His heart score is low. Told that he would need to follow up with his primary care doctor for outpatient stress disorder cardiology evaluation within 30 days based on the heart study. Patient given by mouth Zofran prescription sent to his pharmacy. Return parameters discussed. Patient given analgesics when necessary pain. EKG interpretation: Ventricular rate D, sinus bradycardia,. 140, care is 82, QTc 382. No [place] prolongation, no QTC prolongation, no ST or T-wave changes noted. Overall, this EKG is unremarkable - Related Data Home Medications Medication Instructions Recorded Confirmed Cyclobenzaprine [Flexeril] 10 mg PO HS PRN 10/11/16 07/13/19 Pantoprazole Sodium [Protonix] 40 mg PO BID 10/11/16 07/13/19 traMADol HCL [Ultram] 50 mg PO Q6HR PRN 10/11/16 07/13/19 Albuterol Inhaler [Ventolin Hfa 1 - 2 puff INHALATION RT-QID PRN 06/03/17 07/13/19 Inhaler] Budesonide-Formot 160-4.5 Mcg 2 puff INHALATION RT-BID 06/03/17 07/13/19 [Symbicort 160-4.5 Mcg Inhaler] Fluticasone Nasal [place] [Flonase 1 spray EA NOSTRIL DAILY PRN 06/03/17 07/13/19 Nasal [place]] Montelukast [Singulair] 10 mg PO HS 06/03/17 07/13/19 Budesonide/Formoterol Fumarate 2 puff INHALATION BID 04/29/18 07/13/19 [Symbicort 80-4.5 Mcg Inhaler] Previous Rx's Medication Instructions Recorded Clindamycin HCl 300 mg PO Q6H 7 Days #28 cap 07/13/19 Naproxen [Naprosyn] 500 mg PO BID PRN #20 tab 08/23/19 Ondansetron Odt [Zofran Odt] 4 mg PO Q8HR PRN #12 tab 08/23/19 Allergies Allergy/AdvReac Type Severity Reaction Status Date / Time bacitracin Allergy Rash/Hives Verified 08/20/19 22:15 cephalexin [From Keflex] Allergy Rash/Hives Verified 08/20/19 22:15 clindamycin Allergy Anaphylaxis Verified 08/20/19 22:15 codeine Allergy Nausea & Verified 08/20/19 22:15 Vomiting Iodinated Contrast Media Allergy Rash/Hives Verified 08/20/19 22:15 neomycin Allergy Rash/Hives Verified 08/20/19 22:15 [From Neosporin ([id number])] polymyxin B Allergy Rash/Hives Verified 08/20/19 22:15 [From Neosporin ([id number])] Review of Systems ROS Statement: Those systems with pertinent positive or pertinent negative responses have been documented in the HPI. ROS Other: All systems not noted in ROS Statement are negative. Past Medical History Past Medical History: Asthma, Chest Pain / Angina, GERD/Reflux, Hyperlipidemia, Osteoarthritis (OA) Additional Past Medical History / Comment(s): HIATAL HERNIA. States hx chest pain in the past. Past and current problems with recurrent ear infections and ruptured eardrums. Chronic back pain. History of Any Multi-Drug Resistant Organisms: None Reported Past Surgical History: Hernia Repair, Tonsillectomy Additional Past Surgical History / Comment(s): RIGHT AND LEFT EAR SURGERY, SINUS SURGERY, LEFT WRIST, LEFT HAND SURGERY, HERNIA REPAIR X2. COLONOSCOPY Past Anesthesia/Blood Transfusion Reactions: No Reported Reaction Past Psychological History: No Psychological Hx Reported Smoking Status: Former smoker Past Alcohol Use History: Rare Past Drug Use History: Marijuana - Past Family History Mother Family Medical History: No Reported History Course Vital Signs 08/22/19 08/22/19 20:27 22:35 Temperature 97.7 F Pulse Rate 69 57 L Respiratory 18 18 Rate Blood Pressure 138/86 111/68 O2 Sat by Pulse 98 96 Oximetry Medical Decision Making - Lab Data Result diagrams: 08/22/19 20:42 08/22/19 20:42 Lab Results 08/22/19 08/22/19 08/22/19 Range/Units 20:42 20:42 20:42 WBC 9.4 (3.8-10.6) k/uL RBC 5.17 (4.30-5.90) m/uL Hgb 16.2 (13.0-17.5) gm/dL Hct 48.0 (39.0-53.0) % MCV 92.7 (80.0-100.0) fL MCH 31.3 (25.0-35.0) pg MCHC 33.7 (31.0-37.0) g/dL RDW 12.6 (11.5-15.5) % Plt Count 243 (150-450) k/uL Neutrophils % 75 % Lymphocytes % 18 % Monocytes % 5 % Eosinophils % 1 % Basophils % 1 % Neutrophils # 7.1 (1.3-7.7) k/uL Lymphocytes # 1.7 (1.0-4.8) k/uL Monocytes # 0.4 (0-1.0) k/uL Eosinophils # 0.1 (0-0.7) k/uL Basophils # 0.1 (0-0.2) k/uL PT 10.5 (9.0-12.0) sec INR 1.0 (<1.2) APTT 24.4 (22.0-30.0) sec Sodium 143 (137-145) mmol/L Potassium 4.0 (3.5-5.1) mmol/L Chloride 107 (98-107) mmol/L Carbon Dioxide 26 (22-30) mmol/L Anion Gap 10 mmol/L BUN 22 H (9-20) mg/dL Creatinine 1.00 (0.66-1.25) mg/dL Est GFR (CKD-EPI)AfAm >90 (>60 ml/min/1.73 sqM) Est GFR (CKD-EPI)NonAf 90 (>60 ml/min/1.73 sqM) Glucose 84 (74-99) mg/dL Calcium 10.0 (8.4-10.2) mg/dL Troponin I (0.000-0.034) ng/mL 08/22/19 08/22/19 Range/Units 20:42 23:23 WBC (3.8-10.6) k/uL RBC (4.30-5.90) m/uL Hgb (13.0-17.5) gm/dL Hct (39.0-53.0) % MCV (80.0-100.0) fL MCH (25.0-35.0) pg MCHC (31.0-37.0) g/dL RDW (11.5-15.5) % Plt Count (150-450) k/uL Neutrophils % % Lymphocytes % % Monocytes % % Eosinophils % % Basophils % % Neutrophils # (1.3-7.7) k/uL Lymphocytes # (1.0-4.8) k/uL Monocytes # (0-1.0) k/uL Eosinophils # (0-0.7) k/uL Basophils # (0-0.2) k/uL PT (9.0-12.0) sec INR (<1.2) APTT (22.0-30.0) sec Sodium (137-145) mmol/L Potassium (3.5-5.1) mmol/L Chloride (98-107) mmol/L Carbon Dioxide (22-30) mmol/L Anion Gap mmol/L BUN (9-20) mg/dL Creatinine (0.66-1.25) mg/dL Est GFR (CKD-EPI)AfAm (>60 ml/min/1.73 sqM) Est GFR (CKD-EPI)NonAf (>60 ml/min/1.73 sqM) Glucose (74-99) mg/dL Calcium (8.4-10.2) mg/dL Troponin I <0.012 <0.012 (0.000-0.034) ng/mL Disposition Clinical Impression: Chest pain Disposition: HOME SELF-CARE Condition: Good Instructions (If sedation given, give patient instructions): Chest Pain (ED), Acute Headache (ED) Prescriptions: Naproxen [Naprosyn] 500 mg PO BID PRN #20 tab PRN Reason: Pain Ondansetron Odt [Zofran Odt] 4 mg PO Q8HR PRN #12 tab PRN Reason: Nausea Is patient prescribed a controlled substance at d/c from ED?: Yes Referrals: Chacho Lee MD [Primary Care Provider] - 1-2 days Time of Disposition: 00:22
[2019-08-22] MEDS ORDERED: methylPREDNISolone SOD SUCCI 125 MG/2 ML VIAL IV STA (20:53)
[2019-08-22] MEDS ORDERED: diphenhydrAMINE 50 MG/ML 1 ML VIAL IVP STA (20:54)
[2019-08-22] MEDS ORDERED: FAMOTIDINE 20 MG/2 ML VIAL IV STA (20:54)
[2019-08-22 20:59] LABS: Basophils # (A) 0.1 k/uL (0-0.2); Basophils % (A) 1 %; Eosinophils # (A) 0.1 k/uL (0-0.7); Eosinophils % (A) 1 %; HGB 16.2 gm/dL (13.0-17.5); Lymphocytes # (A) 1.7 k/uL (1.0-4.8); Lymphocytes % (A) 18 %; MCH 31.3 pg (25.0-35.0); MCHC 33.7 g/dL (31.0-37.0); MCV 92.7 fL (80.0-100.0); Mean Platelet Volume 6.9; Monocytes # (A) 0.4 k/uL (0-1.0); Monocytes % (A) 5 %; Neutrophils # (A) 7.1 k/uL (1.3-7.7); Neutrophils % (A) 75 %; Platelet Count 243 k/uL (150-450); RBC 5.17 m/uL (4.30-5.90); RDW 12.6 % (11.5-15.5); WBC 9.4 k/uL (3.8-10.6)
[2019-08-22 21:08] LABS: Partial Thromboplastin Time 24.4 sec (22.0-30.0); Prothrombin Time 10.5 sec (9.0-12.0)
[2019-08-22 21:11] LABS: African American GFR (CKD) >90 (>60 ml/min/1.73 sqM); Anion Gap 10 mmol/L; Blood Urea Nitrogen 22 mg/dL (9-20); Carbon Dioxide 26 mmol/L (22-30); Chloride 107 mmol/L (98-107); Glucose 84 mg/dL (74-99); Sodium 143 mmol/L (137-145)
--- NOTE | 2019-08-22 21:21 | XR ---
EXAMINATION TYPE: XR chest 1V portable DATE OF EXAM: 08/22/2019 COMPARISON: None INDICATION: Chest pain TECHNIQUE: Single frontal view of the chest is obtained. FINDINGS: The heart size is normal. The pulmonary vasculature is normal. The lungs are clear. IMPRESSION: 1. No acute pulmonary process.
[2019-08-22] MEDS ORDERED: SODIUM CHLORIDE 0.9% 1,000 ML IV STA (21:33)
--- NOTE | 2019-08-22 21:36 | CT ---
EXAMINATION TYPE: CT brain wo con DATE OF EXAM: 08/22/2019 COMPARISON: None INDICATION: headache DLP: 1095.4 mGycm, Automated exposure control for dose reduction was used. CONTRAST: None CT of the brain is performed utilizing 3 mm thick sections through the posterior fossa and 3 mm thick sections through the remaining calvarium. Study is performed within 24 hours of arrival to the hosp [facility]. No abnormal hyperdensity is present to suggest an acute intracranial hemorrhage. No mass lesion is evident. No acute infarcts are evident. Ventricles and sulci are appropriate for the patient age. Paranasal sinuses and mastoid air cells within the [id number] are clear. IMPRESSIONS: 1. Normal CT Brain
--- NOTE | 2019-08-22 21:41 | CT ---
CT CHEST FOR PULMONARY EMBOLISM. EXAMINATION TYPE: CT angio chest DATE OF EXAM: 08/22/2019 INDICATION: chest pain, SOB CT DLP: 618.8 mGycm, Automated exposure control for dose reduction was used. CONTRAST: Patient injected with 93cc mL of Isovue 370. COMPARISON: None TECHNIQUE: CT of the chest is performed on a spiral scan at 2 mm thick sections. Study is performed with intravenous contrast timed for evaluation for pulmonary embolism. This will limit additional po rtions of the evaluation. 3-D MIP images reconstructed by the technologist are reviewed on the compu ter in the coronal and sagittal planes. FINDINGS: No persistent filling defects are evident to suggest an acute pulmonary embolism. No mediastinal or hilar adenopathy enlarged by CT criteria is evident. The ascending aorta diameter at the level of the main pulmonary artery is 3.1 cm. The main pulmonary artery diameter at the bifur cation is 2.7 cm. Lung windows are clear. Limited CT section through the upper abdomen are unremarkable. There is a moderate size hiatal hernia present. IMPRESSIONS: 1. No acute pulmonary embolism. 2. Moderate size hiatal hernia
[2019-08-23] MEDS ORDERED: KETOROLAC 30 MG/ML 1 ML VIAL IVP STA (00:17)
[2019-08-23] MEDS ORDERED: METOCLOPRAMIDE 5 MG/ML 2 ML VIAL IVP STA (00:17)
[2019-08-23 00:39] VITALS: BP 117/76; PULSE 54
== END 2019-08-23 00:41 | disposition home or self-care (01) ==
LOC: EC 20:23
DX: R07.89 Other chest pain (principal); R00.1 Bradycardia, unspecified; R51 Headache; J45.909 Unspecified asthma, uncomplicated; K21.9 Gastro-esophageal reflux disease without esophagitis; M19.90 Unspecified osteoarthritis, unspecified site; Z87.891 Personal history of nicotine dependence; Z88.1 Allergy status to other antibiotic agents; Z88.5 Allergy status to narcotic agent; Z91.041 Radiographic dye allergy status; Z79.51 Long term (current) use of inhaled steroids; Z79.891 Long term (current) use of opiate analgesic; Z79.899 Other long term (current) drug therapy
CPT/HCPCS: 36415; 93005; 80048; 84484; 85025; 85610; 85730; 71045; 70450; 71275; 99284; 96374; 96375 ×4; 96361; J1200; J2765; J2930; J1885; Q9967

== ENCOUNTER → 2019-11-23 | Outpatient (CLI) | payer MEDICAID ==
--- NOTE | 2019-11-24 07:26 | US ---
EXAMINATION TYPE: US axilla RT DATE OF EXAM: 11/23/2019 COMPARISON: NONE CLINICAL HISTORY: M79.601 Right arm pain. Right axilla pain. TECHNIQUE/FINDINGS: Grayscale and color ultrasound were performed of the right axilla and the patient 's area of pain. No mass or fluid collection seen in right axilla. No suspicious sonographic finding. No focal edema. IMPRESSION: No sonographic correlate to the patient's area of pain in the right axilla.
== END | disposition home or self-care (01) ==
LOC: RADUSWWP 14:53
PROVIDERS: ATTEND Family Medicine
DX: M79.601 Pain in right arm (principal); Z88.1 Allergy status to other antibiotic agents; Z88.5 Allergy status to narcotic agent; Z91.048 Other nonmedicinal substance allergy status

== ENCOUNTER → 2020-03-18 | Outpatient (CLI) | payer MEDICAID ==
--- NOTE | 2020-03-18 10:20 | XR ---
EXAMINATION TYPE: XR orbit detect foreign body , 3 VIEWS DATE OF EXAM ORDERED: 03/18/2020 HISTORY: G43.909. COMPARISON: None. FINDINGS: The orbits have a normal appearance. No radiopaque foreign body is identified. IMPRESSION: I DO NOT SEE A CONTRAINDICATION TO MRI IN THIS PATIENT.
--- NOTE | 2020-03-21 13:16 | MR ---
MR brain without contrast HISTORY: R 41.3, headaches Multiplanar multisequence imaging obtained through the brain. Correlation to MR brain 08/24/2019 from outside institution. There is inflammatory change in the temporal bone on the right as on prior exam. There is no restrict ed diffusion. There is no hemorrhage or hydrocephalus. The orbits show symmetric appearance. There ar e normal vascular flow voids. Orbits show symmetric appearance. Hyperintensities within the frontal w josie matter on the left are stable. IMPRESSION: Essentially stable brain MRI. No acute abnormality is evident.
== END | disposition home or self-care (01) ==
LOC: RADMRIMAIN 09:21
PROVIDERS: ATTEND Psychiatry & Neurology Neurology
DX: G43.909 Migraine, unspecified, not intractable, without status migrainosus (principal); R41.3 Other amnesia
CPT/HCPCS: 70030; 70551

== ENCOUNTER 2020-08-05 20:33 | Observation (INO) | payer MEDICAID ==
[2020-08-05] MEDS ORDERED: SODIUM CHLORIDE 0.9% 500 ML 500 ML IV STA (20:41)
[2020-08-05 21:06] LABS: Basophils % (A) 1 %; Eosinophils # (A) 0.1 k/uL (0-0.7); Eosinophils % (A) 1 %; HCT 41.6 % (39.0-53.0); Lymphocytes # (A) 2.2 k/uL (1.0-4.8); Lymphocytes % (A) 32 %; MCH 31.6 pg (25.0-35.0); MCHC 33.7 g/dL (31.0-37.0); MCV 93.7 fL (80.0-100.0); Monocytes # (A) 0.3 k/uL (0-1.0); Monocytes % (A) 5 %; Neutrophils # (A) 4.1 k/uL (1.3-7.7); Neutrophils % (A) 60 %; Platelet Count 194 k/uL (150-450); RBC 4.44 m/uL (4.30-5.90); RDW 12.9 % (11.5-15.5); WBC 6.8 k/uL (3.8-10.6)
[2020-08-05 21:15] LABS: ALT 22 U/L (4-49); AST 28 U/L (17-59); African American GFR (CKD) >90 (>60 ml/min/1.73 sqM); Alkaline Phosphatase 54 U/L (38-126); Anion Gap 6 mmol/L; Blood Urea Nitrogen 21 mg/dL (9-20); Carbon Dioxide 25 mmol/L (22-30); Chloride 105 mmol/L (98-107); Glucose 100 mg/dL (74-99); Magnesium 1.7 mg/dL (1.6-2.3); Non-African American GFR(CKD) 85 (>60 ml/min/1.73 sqM); Potassium 4.2 mmol/L (3.5-5.1); Sodium 136 mmol/L (137-145); Total Bilirubin 0.5 mg/dL (0.2-1.3); Total Protein 6.7 g/dL (6.3-8.2)
--- NOTE | 2020-08-05 21:18 | ED ---
General Adult HPI - General Chief complaint: Syncope Stated complaint: near syncope Time Seen by Provider: 08/05/20 20:35 Source: patient, EMS Mode of arrival: EMS Limitations: no limitations - History of Present Illness Initial comments: 45-year-old male presents with near syncopal episode. Patient has had similar episodes in the past. Just prior to arrival he began feeling lightheaded, he became diaphoretic and had nausea without vomiting. His blood pressure was checked at home and it was 60/40 according to his . He had some left anterior chest pain associated with this. He states he's had chest pain for the past 15 years and has been worked up on multiple occasions at both hospitals. He denies vomiting or diarrhea. Denies fever. Chest pain is left-sided nonradiating. - Related Data Home Medications Medication Instructions Recorded Confirmed Cyclobenzaprine [Flexeril] 10 mg PO HS PRN 10/11/16 07/13/19 Pantoprazole Sodium [Protonix] 40 mg PO BID 10/11/16 07/13/19 traMADol HCL [Ultram] 50 mg PO Q6HR PRN 10/11/16 07/13/19 Albuterol Inhaler (Mhu) [Ventolin 1 - 2 puff INHALATION RT-QID PRN 06/03/17 07/13/19 Hfa Inhaler] Budesonide-Formot 160-4.5 Mcg 2 puff INHALATION RT-BID 06/03/17 07/13/19 [Symbicort 160-4.5 Mcg Inhaler] Fluticasone Nasal [place] [Flonase 1 spray EA NOSTRIL DAILY PRN 06/03/17 07/13/19 Nasal [place]] Montelukast [Singulair] 10 mg PO HS 06/03/17 07/13/19 Budesonide/Formoterol Fumarate 2 puff INHALATION BID 04/29/18 07/13/19 [Symbicort 80-4.5 Mcg Inhaler] Previous Rx's Medication Instructions Recorded Clindamycin HCl 300 mg PO Q6H 7 Days #28 cap 07/13/19 Naproxen [Naprosyn] 500 mg PO BID PRN #20 tab 08/23/19 Ondansetron Odt [Zofran Odt] 4 mg PO Q8HR PRN #12 tab 08/23/19 Allergies Allergy/AdvReac Type Severity Reaction Status Date / Time bacitracin Allergy Rash/Hives Verified 08/05/20 22:52 cephalexin [From Keflex] Allergy Rash/Hives Verified 08/05/20 22:52 clindamycin Allergy Anaphylaxis Verified 08/05/20 22:52 codeine Allergy Nausea & Verified 08/05/20 22:52 Vomiting/Rash Iodinated Contrast Media Allergy Rash/Hives Verified 08/05/20 22:52 neomycin Allergy Rash/Hives Verified 08/05/20 22:52 [From Neosporin ([id number])] polymyxin B Allergy Rash/Hives Verified 08/05/20 22:52 [From Neosporin ([id number])] tetracycline Allergy Rash/Hives Verified 08/05/20 22:52 Review of Systems ROS Statement: Those systems with pertinent positive or pertinent negative responses have been documented in the HPI. ROS Other: All systems not noted in ROS Statement are negative. Past Medical History Past Medical History: Asthma, Chest Pain / Angina, GERD/Reflux, Hyperlipidemia, Osteoarthritis (OA) Additional Past Medical History / Comment(s): HIATAL HERNIA. States hx chest pain in the past. Past and current problems with recurrent ear infections and ruptured eardrums. Chronic back pain. History of Any Multi-Drug Resistant Organisms: None Reported Past Surgical History: Hernia Repair, Tonsillectomy Additional Past Surgical History / Comment(s): RIGHT AND LEFT EAR SURGERY, SINUS SURGERY, LEFT WRIST, LEFT HAND SURGERY, HERNIA REPAIR X2. COLONOSCOPY Past Anesthesia/Blood Transfusion Reactions: No Reported Reaction Past Psychological History: No Psychological Hx Reported Smoking Status: Never smoker Past Alcohol Use History: Rare Past Drug Use History: Marijuana - Past Family History Mother Family Medical History: No Reported History General Exam Limitations: no limitations General appearance: alert, in no apparent distress Head exam: Present: atraumatic, normocephalic Eye exam: Present: normal appearance, PERRL ENT exam: Present: normal exam Neck exam: Present: normal inspection. Absent: tenderness, meningismus Respiratory exam: Present: normal lung sounds bilaterally. Absent: respiratory distress, wheezes Cardiovascular Exam: Present: regular rate, normal rhythm GI/Abdominal exam: Present: soft. Absent: distended, tenderness Extremities exam: Present: normal inspection, normal capillary refill. Absent: pedal edema Neurological exam: Present: alert, oriented X3, CN II-XII intact. Absent: motor sensory deficit Psychiatric exam: Present: normal affect, normal mood Skin exam: Present: warm, dry, intact. Absent: cyanosis, diaphoretic Course Vital Signs 08/05/20 08/05/20 20:34 22:44 Temperature 97.8 F Pulse Rate 64 70 Respiratory 18 18 Rate Blood Pressure 120/76 109/68 O2 Sat by Pulse 100 100 Oximetry EKG Findings - EKG Comments: EKG Findings:: EKG: Normal sinus rhythm with sinus arrhythmia, rate of 67, FL interval 156, QRS duration 86, QTC 399, no ST segment elevation. Medical Decision Making - Medical Decision Making 45-year-old male presenting with an episode of near syncope and chest pain. Chest pain is been ongoing, he has additionally had several episodes of near syncope. Chest x-ray negative for acute cardiopulmonary disease. EKG showing sinus rhythm without ST segment elevation. He has a normal CBC, normal CMP negative initial troponin. He had a measured blood pressure at home of 60. Given this low blood pressure as well as a complaint of chest pain he will be kept in observation for telemetry, hydration, echo, serial cardiac enzymes and cardiology consultation. I did discuss case with Dr. Dhaliwal who will admit. - Lab Data Result diagrams: 08/05/20 20:55 08/05/20 20:55 Lab Results 08/05/20 08/05/20 08/05/20 Range/Units 20:55 20:55 20:55 WBC 6.8 (3.8-10.6) k/uL RBC 4.44 (4.30-5.90) m/uL Hgb 14.0 (13.0-17.5) gm/dL Hct 41.6 (39.0-53.0) % MCV 93.7 (80.0-100.0) fL MCH 31.6 (25.0-35.0) pg MCHC 33.7 (31.0-37.0) g/dL RDW 12.9 (11.5-15.5) % Plt Count 194 (150-450) k/uL Neutrophils % 60 % Lymphocytes % 32 % Monocytes % 5 % Eosinophils % 1 % Basophils % 1 % Neutrophils # 4.1 (1.3-7.7) k/uL Lymphocytes # 2.2 (1.0-4.8) k/uL Monocytes # 0.3 (0-1.0) k/uL Eosinophils # 0.1 (0-0.7) k/uL Basophils # 0.0 (0-0.2) k/uL PT 10.6 (9.0-12.0) sec INR 1.0 (<1.2) APTT 21.3 L (22.0-30.0) sec Sodium (137-145) mmol/L Potassium (3.5-5.1) mmol/L Chloride (98-107) mmol/L Carbon Dioxide (22-30) mmol/L Anion Gap mmol/L BUN (9-20) mg/dL Creatinine (0.66-1.25) mg/dL Est GFR (CKD-EPI)AfAm (>60 ml/min/1.73 sqM) Est GFR (CKD-EPI)NonAf (>60 ml/min/1.73 sqM) Glucose (74-99) mg/dL Calcium (8.4-10.2) mg/dL Magnesium (1.6-2.3) mg/dL Total Bilirubin (0.2-1.3) mg/dL AST (17-59) U/L ALT (4-49) U/L Alkaline Phosphatase (38-126) U/L Troponin I (0.000-0.034) ng/mL Total Protein (6.3-8.2) g/dL Albumin (3.5-5.0) g/dL Urine Color Light Yellow Urine Appearance Clear (Clear) Urine pH 5.5 (5.0-8.0) Ur Specific [place] 1.008 (1.001-1.035) Urine Protein Negative (Negative) Urine Glucose (UA) Negative (Negative) Urine Ketones Negative (Negative) Urine Blood Negative (Negative) Urine Nitrite Negative (Negative) Urine Bilirubin Negative (Negative) Urine Urobilinogen <2.0 (<2.0) mg/dL Ur Leukocyte Esterase Negative (Negative) 08/05/20 08/05/20 Range/Units 20:55 20:55 WBC (3.8-10.6) k/uL RBC (4.30-5.90) m/uL Hgb (13.0-17.5) gm/dL Hct (39.0-53.0) % MCV (80.0-100.0) fL MCH (25.0-35.0) pg MCHC (31.0-37.0) g/dL RDW (11.5-15.5) % Plt Count (150-450) k/uL Neutrophils % % Lymphocytes % % Monocytes % % Eosinophils % % Basophils % % Neutrophils # (1.3-7.7) k/uL Lymphocytes # (1.0-4.8) k/uL Monocytes # (0-1.0) k/uL Eosinophils # (0-0.7) k/uL Basophils # (0-0.2) k/uL PT (9.0-12.0) sec INR (<1.2) APTT (22.0-30.0) sec Sodium 136 L (137-145) mmol/L Potassium 4.2 (3.5-5.1) mmol/L Chloride 105 (98-107) mmol/L Carbon Dioxide 25 (22-30) mmol/L Anion Gap 6 mmol/L BUN 21 H (9-20) mg/dL Creatinine 1.05 (0.66-1.25) mg/dL Est GFR (CKD-EPI)AfAm >90 (>60 ml/min/1.73 sqM) Est GFR (CKD-EPI)NonAf 85 (>60 ml/min/1.73 sqM) Glucose 100 H (74-99) mg/dL Calcium 9.0 (8.4-10.2) mg/dL Magnesium 1.7 (1.6-2.3) mg/dL Total Bilirubin 0.5 (0.2-1.3) mg/dL AST 28 (17-59) U/L ALT 22 (4-49) U/L Alkaline Phosphatase 54 (38-126) U/L Troponin I <0.012 (0.000-0.034) ng/mL Total Protein 6.7 (6.3-8.2) g/dL Albumin 4.0 (3.5-5.0) g/dL Urine Color Urine Appearance (Clear) Urine pH (5.0-8.0) Ur Specific [place] (1.001-1.035) Urine Protein (Negative) Urine Glucose (UA) (Negative) Urine Ketones (Negative) Urine Blood (Negative) Urine Nitrite (Negative) Urine Bilirubin (Negative) Urine Urobilinogen (<2.0) mg/dL Ur Leukocyte Esterase (Negative) Disposition Clinical Impression: Near syncope, Chest pain Disposition: ADMITTED IP TO THIS HOSP Condition: Stable Is patient prescribed a controlled substance at d/c from ED?: No Referrals: Chacho Lee MD [Primary Care Provider] - 1-2 days Decision to Admit Reason: Admit from EC Decision Date: 08/05/20 Decision Time: 22:54
[2020-08-05 21:26] LABS: Prothrombin Time 10.6 sec (9.0-12.0)
--- NOTE | 2020-08-05 21:27 | XR ---
EXAMINATION TYPE: XR chest 2V DATE OF EXAM: 08/05/2020 COMPARISON: 08/22/2019 HISTORY: Syncope TECHNIQUE: FINDINGS: Heart and mediastinum are normal. Lungs are clear. Diaphragm is normal. There is hiatal her can. The bony thorax is intact. There is no heart failure. IMPRESSION: No active cardiopulmonary disease. No change.
[2020-08-05 21:31] LABS: Partial Thromboplastin Time 21.3 sec (22.0-30.0)
[2020-08-05 22:36] LABS: Appearance,Urine Clear (Clear); Bilirubin,Urine Negative (Negative); Blood,Urine Negative (Negative); Color,Urine Light Yellow; Glucose,Urine (UA) Negative (Negative); Ketones,Urine Negative (Negative); Leukocyte Esterase,Urine Negative (Negative); Nitrite,Urine Negative (Negative); PH, Urine 5.5 (5.0-8.0); Protein,Urine Negative (Negative); Specific Gravity,Urine 1.008 (1.001-1.035); Urobilinogen,Urine <2.0 mg/dL (<2.0)
[2020-08-05] MEDS ORDERED: SODIUM CHLORIDE 0.9% 500 ML 500 ML IV ONE (22:45)
[2020-08-05] MEDS ORDERED: ACETAMINOPHEN TAB 325 MG TAB PO PRN (22:47)
[2020-08-05] MEDS ORDERED: NALOXONE 0.4 MG/ML 1 ML VIAL IV PRN (22:47)
[2020-08-05] MEDS: SODIUM CHLORIDE 0.9% 1,000 ML IV SCH (22:59)
[2020-08-06] MEDS: SYMBICORT 160-4.5 MCG INHALER INHALATION SCH ×2 (07:22→19:28)
[2020-08-06] MEDS: SODIUM CHLORIDE 0.9% 1,000 ML IV SCH ×2 (09:14→20:29)
[2020-08-06] MEDS: PANTOPRAZOLE 40 MG TABLET PO SCH ×2 (09:15→20:28)
--- NOTE | 2020-08-06 11:12 | P.CRDCN ---
History of Present Illness Consult date: 08/06/20 History of present illness: CHIEF COMPLAINT: Chest pain HISTORY OF PRESENT ILLNESS: This is a 45-year old male with a past medical history significant for GERD, asthma, and osteoarthritis. Patient states he does not follow with a health center associate but has seen a health center associate out of [facility] in the past. We have been asked to see the patient in consultation for chest pain, near syncope. Patient examined this morning the bedside. Patient's spouse is present. Patient reports he was sitting on his commode yesterday reading an article on his phone when he began feeling a warm sensation, over his whole body. He states he Very diaphoretic. He lowered himself down to the floor. His spouse is at that time patient began going in and out of responsiveness for approximately 20 seconds. Spouse reports that she checked h is blood pressure and it was 60/40. Patient denies any dizziness, lightheadedness, chest pain, or shortness of breath prior to this episode. Patient reports he has been having intermittent chest pain over the last 10 years that feels like a stabbing sensation. He reports having a stress test performed a couple years ago that was negative. DIAGNOSTICS: EKG reveals sinus rhythm Chest xray no active cardiopulmonary disease Laboratory data: WBC 6.8. Hemoglobin 14.0. Platelet count 194. Sodium 136. Potassium 4.2. BUN 21. Creatinine 1.05. Magnesium 1.7. Troponin negative 3. Current home cardiac medications include none REVIEW OF SYSTEMS: At the time of my exam: CONSTITUTIONAL: Denies fever or chills. HEENT: Denies blurred vision, vision changes, or eye pain. Denies hemoptysis CARDIOVASCULAR: Denies chest pain, orthopnea, PND or palpitations RESPIRATORY: No shortness of breath. GASTROINTESTINAL: Denies abdominal pain. Denies nausea or vomiting. HEMATOLOGIC: Denies bleeding disorders. GENITOURINARY: Denies any blood in urine. SKIN: Denies pruitis. Denies rash. PHYSICAL EXAM: VITAL SIGNS: Reviewed. GENERAL: Well-developed in no acute distress. HEENT: Head is normocephalic. Pupils are equal, round. Sclerae anicteric. Mucous membranes of the mouth are moist. Neck supple. No JVD or thyromegaly LUNGS: Respirations even and unlabored. Lungs essentially clear to auscultation bilaterally. HEART: Regular rate and rhythm. S1 and S2 heard. ABDOMEN: Soft. Nondistended. Nontender. EXTREMITIES: Normal range of motion. No clubbing or cyanosis. Peripheral pulses intact. No lower extremity edema NEUROLOGIC: Awake and alert. Oriented x 3. ASSESSMENT: Near syncope, suspect vasovagal in nature Chest pain, atypical History of chest pain 10 years, troponin negative 3 Asthma History of nicotine dependence, in remission PLAN: Acute coronary event has been ruled out Check orthostatic blood pressures Continue telemetry monitoring for any cardiac arrhythmias Obtain 2-D echo to assess cardiac structure and function Patient to undergo stress test tomorrow to assess for any reversible ischemia Patient to have a event monitor placed at the time of discharge Obtain reports from hospitalization at [facility] Further recommendations pending patient's course Nurse practitioner note has been reviewed by physician. Signing provider agrees with the documented findings, assessment, and plan of care. Past Medical History Past Medical History: Asthma, Chest Pain / Angina, GERD/Reflux, Hyperlipidemia, Osteoarthritis (OA) Additional Past Medical History / Comment(s): HIATAL HERNIA. States hx chest pain in the past. Past and current problems with recurrent ear infections and ruptured eardrums. Chronic back pain. History of Any Multi-Drug Resistant Organisms: None Reported Past Surgical History: Hernia Repair, Tonsillectomy Additional Past Surgical History / Comment(s): RIGHT AND LEFT EAR SURGERY, SINUS SURGERY, LEFT WRIST, LEFT HAND SURGERY, HERNIA REPAIR X2. COLONOSCOPY Past Anesthesia/Blood Transfusion Reactions: No Reported Reaction Past Psychological History: No Psychological Hx Reported Smoking Status: Former smoker Past Alcohol Use History: Rare Additional Past Alcohol Use History / Comment(s): STARTED SMOKING AT AGE 14 QUIT 2010 SMOKED 1PPD Past Drug Use History: Marijuana Additional Drug Use History / Comment(s): MEDICAL CARD MARIJUANA. Uses 3-4 times a week. INSTRUCTED TO REFRAIN FROM USE FOR AT LEAST 24 HOURS PRIOR TO ROCEDURE - Past Family History Mother Family Medical History: No Reported History Medications and Allergies Home Medications Medication Instructions Recorded Confirmed Type Pantoprazole Sodium [Protonix] 40 mg PO BID 10/11/16 08/05/20 History Budesonide-Formot 160-4.5 Mcg 2 puff INHALATION RT-BID 06/03/17 08/05/20 History [Symbicort 160-4.5 Mcg Inhaler] Montelukast [Singulair] 10 mg PO HS 06/03/17 08/05/20 History Nortriptyline [Pamelor] 75 mg PO HS 08/05/20 08/05/20 History Allergies Allergy/AdvReac Type Severity Reaction Status Date / Time bacitracin Allergy Rash/Hives Verified 08/05/20 22:52 cephalexin [From Keflex] Allergy Rash/Hives Verified 08/05/20 22:52 clindamycin Allergy Anaphylaxis Verified 08/05/20 22:52 codeine Allergy Nausea & Verified 08/05/20 22:52 Vomiting/Rash Iodinated Contrast Media Allergy Rash/Hives Verified 08/05/20 22:52 neomycin Allergy Rash/Hives Verified 08/05/20 22:52 [From Neosporin ([id number])] polymyxin B Allergy Rash/Hives Verified 08/05/20 22:52 [From Neosporin ([id number])] tetracycline Allergy Rash/Hives Verified 08/05/20 22:52 Physical Exam Vitals: Vital Signs Temp Pulse Pulse Resp BP BP Pulse Ox 08/06/20 07:51 97.9 F 69 16 114/70 97 08/06/20 02:15 97.8 F 76 123/71 96 08/05/20 23:33 97.8 F 68 137/79 100 08/05/20 22:44 70 18 109/68 100 08/05/20 20:34 97.8 F 64 18 120/76 100 Intake and Output 08/05/20 08/06/20 08/06/20 22:59 06:59 14:59 Intake Total 200 Output Total 800 Balance -600 Intake: Oral 200 Output: Urine 800 Other: Voiding Method Toilet # Voids 4 Weight 90.718 kg 90.718 kg Results 08/05/20 20:55 08/05/20 20:55 Cardiac Enzymes 08/05/20 08/05/20 08/05/20 Range/Units 20:55 20:55 23:15 AST 28 (17-59) U/L Troponin I <0.012 <0.012 (0.000-0.034) ng/mL 08/06/20 Range/Units 02:18 AST (17-59) U/L Troponin I <0.012 (0.000-0.034) ng/mL Coagulation 08/05/20 Range/Units 20:55 PT 10.6 (9.0-12.0) sec APTT 21.3 L (22.0-30.0) sec CBC 08/05/20 Range/Units 20:55 WBC 6.8 (3.8-10.6) k/uL RBC 4.44 (4.30-5.90) m/uL Hgb 14.0 (13.0-17.5) gm/dL Hct 41.6 (39.0-53.0) % Plt Count 194 (150-450) k/uL Comprehensive Metabolic Panel 08/05/20 Range/Units 20:55 Sodium 136 L (137-145) mmol/L Potassium 4.2 (3.5-5.1) mmol/L Chloride 105 (98-107) mmol/L Carbon Dioxide 25 (22-30) mmol/L BUN 21 H (9-20) mg/dL Creatinine 1.05 (0.66-1.25) mg/dL Glucose 100 H (74-99) mg/dL Calcium 9.0 (8.4-10.2) mg/dL AST 28 (17-59) U/L ALT 22 (4-49) U/L Alkaline Phosphatase 54 (38-126) U/L Total Protein 6.7 (6.3-8.2) g/dL Albumin 4.0 (3.5-5.0) g/dL Current Medications Generic Name Dose Route Start Last Admin Trade Name Freq PRN Reason Stop Dose Admin Acetaminophen 650 mg 08/05/20 22:47 Acetaminophen Tab 325 Mg Tab PO Q6HR PRN Mild Pain or Fever > 100.5 Budesonide/Formoterol Fumarate 2 puff 08/06/20 08:00 08/06/20 07:22 Symbicort 160-4.5 Mcg Inhaler INHALATION 2 puff RT-BID JESSY Administration Sodium Chloride 1,000 mls @ 100 mls/hr 08/05/20 22:45 08/06/20 09:14 Saline 0.9% IV 100 mls/hr .Q10H JESSY Administration Montelukast Sodium 10 mg 08/06/20 21:00 Montelukast 10 Mg Tab PO HS JESSY Naloxone HCl 0.2 mg 08/05/20 22:47 Naloxone 0.4 Mg/Ml 1 Ml Vial IV Q2M PRN Opioid Reversal Nortriptyline HCl 75 mg 08/06/20 21:00 Nortriptyline 25 Mg Cap PO HS JESSY Pantoprazole Sodium 40 mg 08/06/20 09:00 08/06/20 09:15 Pantoprazole 40 Mg Tablet PO 40 mg BID JESSY Administration Intake and Output 08/05/20 08/06/20 08/06/20 22:59 06:59 14:59 Intake Total 200 Output Total 800 Balance -600 Intake: Oral 200 Output: Urine 800 Other: Voiding Method Toilet # Voids 4 Weight 90.718 kg 90.718 kg 08/05/20 20:55 08/05/20 20:55
--- NOTE | 2020-08-06 12:17 | P.HPIM ---
History of Present Illness H&P Date: 08/06/20 Chief Complaint: Chest pain 45-year-old male well-known to Dr. Lee with a past history significant for GERD asthma osteoarthritis. Patient had seen a carcass splitter Citlali Martinez in the past. Patient complained of developing chest pain yesterday morning and also complained of what he described as near syncope this all occurred while he was sitting on the commode. Patient states he became diaphoretic states he lowered himself to the floor his spouse states he was unresponsive for about 20 seconds states she actually checked his blood pressure it was 60/40 however patient does deny dizziness lightheadedness and shortness of breath although intermittent chest pain over the last 10 years. A stress test performed approximately 2 years ago was negative Review of Systems Constitutional: Reports as per HPI Ears, nose, mouth and throat: Reports as per HPI Cardiovascular: Reports chest pain, Reports syncope Respiratory: Reports as per HPI (Denies shortness of breath) Gastrointestinal: Reports as per HPI Genitourinary: Reports as per HPI Musculoskeletal: Reports as per HPI Integumentary: Reports as per HPI Neurological: Reports as per HPI Psychiatric: Reports as per HPI Past Medical History Past Medical History: Asthma, Chest Pain / Angina, GERD/Reflux, Hyperlipidemia, Osteoarthritis (OA) Additional Past Medical History / Comment(s): HIATAL HERNIA. States hx chest pain in the past. Past and current problems with recurrent ear infections and ruptured eardrums. Chronic back pain. History of Any Multi-Drug Resistant Organisms: None Reported Past Surgical History: Hernia Repair, Tonsillectomy Additional Past Surgical History / Comment(s): RIGHT AND LEFT EAR SURGERY, SINUS SURGERY, LEFT WRIST, LEFT HAND SURGERY, HERNIA REPAIR X2. COLONOSCOPY Past Anesthesia/Blood Transfusion Reactions: No Reported Reaction Past Psychological History: No Psychological Hx Reported Smoking Status: Former smoker Past Alcohol Use History: Rare Additional Past Alcohol Use History / Comment(s): STARTED SMOKING AT AGE 14 QUIT 2010 SMOKED 1PPD Past Drug Use History: Marijuana Additional Drug Use History / Comment(s): MEDICAL CARD MARIJUANA. Uses 3-4 times a week. INSTRUCTED TO REFRAIN FROM USE FOR AT LEAST 24 HOURS PRIOR TO ROCEDURE - Past Family History Mother Family Medical History: No Reported History Medications and Allergies Home Medications Medication Instructions Recorded Confirmed Type Pantoprazole Sodium [Protonix] 40 mg PO BID 10/11/16 08/05/20 History Budesonide-Formot 160-4.5 Mcg 2 puff INHALATION RT-BID 06/03/17 08/05/20 History [Symbicort 160-4.5 Mcg Inhaler] Montelukast [Singulair] 10 mg PO HS 06/03/17 08/05/20 History Nortriptyline [Pamelor] 75 mg PO HS 08/05/20 08/05/20 History Allergies Allergy/AdvReac Type Severity Reaction Status Date / Time bacitracin Allergy Rash/Hives Verified 08/05/20 22:52 cephalexin [From Keflex] Allergy Rash/Hives Verified 08/05/20 22:52 clindamycin Allergy Anaphylaxis Verified 08/05/20 22:52 codeine Allergy Nausea & Verified 08/05/20 22:52 Vomiting/Rash Iodinated Contrast Media Allergy Rash/Hives Verified 08/05/20 22:52 neomycin Allergy Rash/Hives Verified 08/05/20 22:52 [From Neosporin ([id number])] polymyxin B Allergy Rash/Hives Verified 08/05/20 22:52 [From Neosporin ([id number])] tetracycline Allergy Rash/Hives Verified 08/05/20 22:52 Physical Exam Osteopathic Statement: *. No significant issues noted on an osteopathic structural exam other than those noted in the History and Physical/Consult. Vitals: Vital Signs Temp Pulse Pulse Pulse Pulse Pulse Resp 08/06/20 10:20 88 79 82 08/06/20 07:51 97.9 F 69 16 08/06/20 02:15 97.8 F 76 08/05/20 23:33 97.8 F 68 08/05/20 22:44 70 18 08/05/20 20:34 97.8 F 64 18 BP BP BP BP BP Pulse Ox 08/06/20 10:20 135/80 148/73 117/71 08/06/20 07:51 114/70 97 08/06/20 02:15 123/71 96 08/05/20 23:33 137/79 100 08/05/20 22:44 109/68 100 08/05/20 20:34 120/76 100 Intake and Output 08/05/20 08/06/20 08/06/20 22:59 06:59 14:59 Intake Total 200 Output Total 800 Balance -600 Intake: Oral 200 Output: Urine 800 Other: Voiding Method Toilet # Voids 4 Weight 90.718 kg 90.718 kg General: [Patient awake, alert and oriented times 3. Patient in no acute distress.] HEENT: [PERRL. EOMI. No pharyngeal erythema or exudate.] Neck: [No adenopathy.] Cardiac: [Heart regular in rate and rhythm. No S3. No S4. No clicks, rubs. No murmur.] Lungs: [Clear to auscultation bilaterally.] Abdomen: [No mass. No organomegaly. Bowel sounds presnt and normoactive in all 4 quadrants.] Extremes: [No edema no cyanosis no claudication normal pulses] : Normal male genitalia Musculoskeletal: [No joint erythema, edema or tenderness.] Skin: [No rash.] Neurologic: [No lateralizing deficits. CN II - XII grossly intact.] Lymphatic: [No adenopathy.] Results CBC & Chem 7: 08/05/20 20:55 08/05/20 20:55 Labs: Abnormal Lab Results - Last 24 Hours (Table) 08/05/20 08/05/20 Range/Units 20:55 20:55 APTT 21.3 L (22.0-30.0) sec Sodium 136 L (137-145) mmol/L BUN 21 H (9-20) mg/dL Glucose 100 H (74-99) mg/dL Assessment and Plan (1) Normal troponin Current Visit: Yes Status: Acute Code(s): LLI0922 - SNOMED Code(s): 383321404 (2) Chest pain Current Visit: Yes Status: Acute Code(s): R07.9 - CHEST PAIN, UNSPECIFIED SNOMED Code(s): 01049991 (3) Near syncope Current Visit: Yes Status: Acute Code(s): R55 - SYNCOPE AND COLLAPSE SNOMED Code(s): 431398053 (4) Change in bowel habits Current Visit: No Status: Acute Code(s): R19.4 - CHANGE IN BOWEL HABIT SNOMED Code(s): 71774725 Plan: Acute coronary event ruled out Telemetry continued for assessment for arrhythmias 2-D echo to interrogate ventricular function Stress test tomorrow to assess for reversible ischemia Consider event monitoring at the time of discharge Time with Patient: Greater than 30
[2020-08-06] MEDS ORDERED: NORTRIPTYLINE 25 MG CAP PO SCH (21:00)
[2020-08-06] MEDS ORDERED: MONTELUKAST 10 MG TAB PO SCH (21:00)
[2020-08-07] MEDS: SODIUM CHLORIDE 0.9% 1,000 ML IV SCH (06:32)
[2020-08-07] MEDS: PANTOPRAZOLE 40 MG TABLET PO SCH (08:42)
[2020-08-07] MEDS: SYMBICORT 160-4.5 MCG INHALER INHALATION SCH (08:45)
[2020-08-07 09:09] VITALS: BP 125/79; PULSE 77; RESP 16; TEMP 97.4
--- NOTE | 2020-08-07 11:00 | P.STRESS ---
- Stress Test Note Stress Test Results/Findings: Exam Performed: stress echo exercise Exam Date: 08/07/20 Reason for Exam: SYNCOPE Height: 5 ft 10 in Weight: 90.72 kg Protocol: MORA Stage: 3 Duration of Exercise: 9:00 Resting Heart Rate: 88 Resting Blood Pressure: 109/55 Maximum Achieved Heart Rate: 155 Maximum Achieved Blood Pressure: 160/86 85% PMHR: 147 100% PMHR: 173 METS: Technologist Comment: Stress Test Results/Findings: This is a 45-year-old gentleman with a history of syncope being evaluated for cardiac status. Patient is also complaining of chest pain. Stress data: Baseline EKG showed sinus rhythm with normal RI interval and QRS duration. Blood pressure at rest is 109/55 with pulse rate of 88. Patient walked on a Mora protocol for 9 minutes achieving a maximum heart rate of 155 with a blood pressure 160/86. EKGs taken during and after exercise did not reveal any significant changes from the baseline. Echo data: Baseline echo images show normal wall motion and thickening. Exercise echo images showed augmentation of wall motion and thickening in all segments. Final impression: #1. Negative stress test #2. Negative stress echo.
--- NOTE | 2020-08-07 11:31 | ECHOF ---
Referral Reason:syncope MEASUREMENTS -------- HEIGHT: 177.8 cm WEIGHT: 90.7 kg BP: 133/83 RVIDd: 3.7 cm (< 3.3) IVSd: 1.1 cm (0.6 - 1.1) LVIDd: 4.5 cm (3.9 - 5.3) LVPWd: 1.3 cm (0.6 - 1.1) IVSs: 1.7 cm LVIDs: 2.5 cm LVPWs: 1.6 cm LAESV Index (A-L): 25.97 ml/m Ao Diam: 3.3 cm (2.0 - 3.7) AV Cusp: 2.6 cm (1.5 - 2.6) MV EXCURSION: 23.351 mm (> 18.000) MV EF SLOPE: 114 mm/s (70 - 150) EPSS: 0.4 cm MV E Sherman: 0.95 m/s MV DecT: 167 ms MV A Sherman: 0.58 m/s MV E/A Ratio: 1.63 AR PHT: 394 ms RAP: 5.00 mmHg RVSP: 37.33 mmHg FINDINGS -------- Sinus rhythm. This was a technically adequate study. The left ventricular size is normal. There is mild concentric left ventricular hypertrophy. Overa ll left ventricular systolic function is normal with, an EF between 55 - 60 %. The diastolic fillin g pattern is normal for the age of the patient 12.91. The right ventricle is mildly enlarged. Normal LA size by volume 22+/-6 ml/m2. The right atrial size is normal. Interatrial and interventricular septum intact. The aortic valve is trileaflet and appears structurally normal. Trace to mild aortic regurgitation. There is no evidence of aortic stenosis. There is trace mitral regurgitation. Mild tricuspid regurgitation present. There is mild pulmonary hypertension. The right ventricular systolic pressure, as measured by Doppler, is 37.33mmHg. There is no pulmonic regurgitation present. The aortic root size is normal. Normal inferior vena cava with normal inspiratory collapse consistent with estimated right atrial pre ssure of 5 mmHg. There is no pericardial effusion. CONCLUSIONS -------- 1. The left ventricular size is normal. 2. There is mild concentric left ventricular hypertrophy. 3. Overall left ventricular systolic function is normal with, an EF between 55 - 60 %. 4. The diastolic filling pattern is normal for the age of the patient 12.91 5. The right ventricle is mildly enlarged. 6. Trace to mild aortic regurgitation. 7. There is trace mitral regurgitation. 8. Mild tricuspid regurgitation present. 9. There is mild pulmonary hypertension. 10. The right ventricular systolic pressure, as measured by Doppler, is 37.33mmHg. MANAGER NIGHT: Briseyda Lira RDCS
--- NOTE | 2020-08-07 11:51 | P.PN ---
Subjective Progress Note Date: 08/07/20 CHIEF COMPLAINT: Chest pain HISTORY OF PRESENT ILLNESS: Patient examined this morning. He denies chest pain or pressure. Denies shortness of breath. Denies dizziness or lightheadedness. No further episodes of syncope. Blood pressure has been stable. PHYSICAL EXAM: VITAL SIGNS: Reviewed. GENERAL: Well-developed in no acute distress. HEENT: Head is normocephalic. Pupils are equal, round. Sclerae anicteric. Mucous membranes of the mouth are moist. Neck supple. No JVD or thyromegaly LUNGS: Respirations even and unlabored. Lungs essentially clear to auscultation bilaterally. HEART: Regular rate and rhythm. S1 and S2 heard. ABDOMEN: Soft. Nondistended. Nontender. EXTREMITIES: Normal range of motion. No clubbing or cyanosis. Peripheral pulses intact. No lower extremity edema NEUROLOGIC: Awake and alert. Oriented x 3. ASSESSMENT: Near syncope, suspect vasovagal in nature Chest pain, atypical History of chest pain 10 years, troponin negative 3 Asthma History of nicotine dependence, in remission PLAN: Patients stress test is negative for ischemia Patient had event monitor placed today He may be discharged home today from a cardiac standpoint Patient to follow up outpatient with Dr. Alonzo Nurse practitioner note has been reviewed by physician. Signing provider agrees with the documented findings, assessment, and plan of care. Objective - Vital Signs Vital signs: Vital Signs Temp 97.4 F L 08/07/20 09:00 Pulse 77 08/07/20 09:00 Resp 16 08/07/20 09:00 BP 125/79 08/07/20 09:00 Pulse Ox 98 08/07/20 09:00 Intake & Output 08/06/20 08/07/20 08/07/20 18:59 06:59 18:59 Intake Total 1570 1200 Output Total 8 Balance 1562 1200 Weight 90.72 kg Intake: IV 1200 Sodium Chloride 0.9% 1, 1200 000 ml @ 100 mls/hr IV . Q10H JESSY Rx#:[id number] Intake, IV Titration 850 Amount Sodium Chloride 0.9% 1, 850 000 ml @ 100 mls/hr IV . Q10H JESSY Rx#:[id number] Oral 720 Output: Urine 8 Other: Voiding Method Toilet Toilet # Voids 2 - Labs CBC & Chem 7: 08/05/20 20:55 08/05/20 20:55
--- NOTE | 2020-08-07 12:22 | ECHOS ---
Stress Test Results/Findings: Exam Performed: stress echo exercise Exam Date: 08/07/20 Reason for Exam: SYNCOPE Height: 5 ft 10 in Weight: 90.72 kg Protocol: MORA Stage: 3 Duration of Exercise: 9:00 Resting Heart Rate: 88 Resting Blood Pressure: 109/55 Maximum Achieved Heart Rate: 155 Maximum Achieved Blood Pressure: 160/86 85% PMHR: 147 100% PMHR: 173 METS: Technologist Comment: Stress Test Results/Findings: This is a 45-year-old gentleman with a history of syncope being evaluated for cardiac status. Patient is also complaining of chest pain. Stress data: Baseline EKG showed sinus rhythm with normal NE interval and QRS duration. Blood pressure at rest is 109/55 with pulse rate of 88. Patient walked on a Mora protocol for 9 minutes achieving a maximum heart rate of 155 with a blood pressure 160/86. EKGs taken during and after exercise did not reveal any significant changes from the baseline. Echo data: Baseline echo images show normal wall motion and thickening. Exercise echo images showed augmentation of wall motion and thickening in all segments. Final impression: #1. Negative stress test #2. Negative stress echo. TIFFANIED
--- NOTE | 2020-08-07 14:05 | P.DS ---
Providers Date of admission: 08/05/20 22:47 Expected date of discharge: 08/07/20 Attending physician: Reid Dhaliwal Consults: 08/05/20 22:52 Consult Physician Routine Consulting Provider: Shawn Nazario Consult Reason/Comments: CP, Near syncope Do you want consulting provider notified?: Yes Primary care physician: Chacho Lee [facility] Course: Final Diagnoses: Chest pain, atypical, stress test pending Near-syncope, possible vasovagal Asthma, controlled History of nicotine dependence History of hypoxia secondary to carbon monoxide exposure one year ago, worked up in the [place] area. Hospital course:45-year-old male well-known to Dr. Lee with a past history significant for GERD asthma osteoarthritis. Patient had seen a surgical clinical reviewer Citlali Martinez in the past. Patient complained of developing chest pain yesterday morning and also complained of what he described as near syncope this all occurred while he was sitting on the commode. Patient states he became diaphoretic states he lowered himself to the floor his spouse states he was unresponsive for about 20 seconds states she actually checked his blood pressure it was 60/40 however patient does deny dizziness lightheadedness and shortness of breath although intermittent chest pain over the last 10 years. A stress test performed approximately 2 years ago was negative. Evaluated by cardiology, scheduled for stress test today. Patient will be discharged home today in stable condition with guarded prognosis pending stress test results, final DC recommendations and clearance from cardiology including event monitor. Patient advised to follow-up with his neurologist at [facility]. The impression and plan of care has been dictated as directed. : I performed a history and examination of this patient, discussed the same with the dictator. I agree with the dictator's note ,documented as a scribe. Any additional findings or plans will be noted. Patient Condition at Discharge: Stable Plan - Discharge Summary New Discharge Prescriptions: Continue Pantoprazole Sodium [Protonix] 40 mg PO BID Montelukast [Singulair] 10 mg PO HS Budesonide-Formot 160-4.5 Mcg [Symbicort 160-4.5 Mcg Inhaler] 2 puff INHALATION RT-BID Nortriptyline [Pamelor] 75 mg PO HS Discharge Medication List Pantoprazole Sodium [Protonix] 40 mg PO BID 10/11/16 [History] Budesonide-Formot 160-4.5 Mcg [Symbicort 160-4.5 Mcg Inhaler] 2 puff INHALATION RT-BID 06/03/17 [History] Montelukast [Singulair] 10 mg PO HS 06/03/17 [History] Nortriptyline [Pamelor] 75 mg PO HS 08/05/20 [History] Follow up Appointment(s)/Referral(s): [facility] [Other] - 1 Week (Please call the office to schedule appointment.) Francisco Alonzo MD [STAFF PHYSICIAN] - 1 Week ([facility] will call you with an appointment, per Veena.) Chacho Lee MD [Primary Care Provider] - 08/10/20 1:00 pm (Appointment with Dennys ALEJANDRE) Patient Instructions/Handouts: Chest Pain (DC), Near Syncope (DC) Activity/Diet/Wound Care/Special Instructions: Event monitor, follow-up appointment as per cardiology
--- NOTE | 2020-09-11 12:24 | EM ---
EVENT MONITOR EVENT MONITOR: The patient was monitored between August 07 and September 05, 2020. The rhythm strip revealed a sinus mechanism with a normal conduction. Ventricular ectopic activity was present in the form of one triplets and single PVCs. No atrial fibrillation was noted, no pauses were noted. ERWIN / CHANG: [id number] /
== END 2020-08-07 13:01 ==
LOC: EC 20:33 → 3NCARDOBS 22:47
PROVIDERS: ADMIT Family Medicine; ATTEND Family Medicine
DX: R07.89 Other chest pain (principal); R55 Syncope and collapse; R61 Generalized hyperhidrosis; R11.0 Nausea; R19.4 Change in bowel habit; R03.1 Nonspecific low blood-pressure reading; J45.909 Unspecified asthma, uncomplicated; K21.9 Gastro-esophageal reflux disease without esophagitis; E78.5 Hyperlipidemia, unspecified; M19.90 Unspecified osteoarthritis, unspecified site; G89.29 Other chronic pain; M54.9 Dorsalgia, unspecified; Z86.19 Personal history of other infectious and parasitic diseases; Z87.891 Personal history of nicotine dependence; Z79.899 Other long term (current) drug therapy; Z79.51 Long term (current) use of inhaled steroids; Z79.891 Long term (current) use of opiate analgesic; Z88.5 Allergy status to narcotic agent; Z88.1 Allergy status to other antibiotic agents; Z91.041 Radiographic dye allergy status
CPT/HCPCS: 96360; 96361; 99285; 36415; 94640 ×3; 93005; 93306; 93270; 93351; 80053; 83735; 84484 ×2; 85025; 85610; 85730; 81003; 71046; G0378 ×3

== ENCOUNTER → 2020-08-22 | Outpatient (CLI) | payer MEDICAID ==
--- NOTE | 2020-08-22 15:49 | US ---
EXAMINATION TYPE: US carotid duplex BILAT DATE OF EXAM: 08/22/2020 COMPARISON: NONE CLINICAL HISTORY: R55 SYNCOPE. EXAM MEASUREMENTS: RIGHT: Peak Systolic Velocity (PSV) cm/sec ----- Right CCA: 120 ----- Right ICA: 166 ----- Right ECA: 81.7 ICA/CCA ratio: 1.38 RIGHT: End Diastole cm/sec ----- Right CCA: 22.4 ----- Right ICA: 20.5 ----- Right ECA: 16.2 LEFT: Peak Systolic Velocity (PSV) cm/sec ----- Left CCA: 125 ----- Left ICA: 90.3 ----- Left ECA: 85.2 ICA/CCA ratio: 0.72 LEFT: End Diastole cm/sec ----- Left CCA: 34.8 ----- Left ICA: 22.6 ----- Left ECA: 10.2 VERTEBRALS (direction of flow): Right Vertebral: Antegrade Left Vertebral: Antegrade Rhythm: Normal Technically difficult study, high bifurcation with deep diving vessels. No significant velocity increases. IMPRESSION: No evidence for hemodynamically significant stenosis. Criteria for Assigning % of Stenosis / Diameter reduction (Estimation based on the indirect measurements of the internal carotid artery velocities (ICA PSV). 1. Normal (no stenosis)=ICA PSV < 125 cm/s: ratio < 2.0: ICA EDV<40 cm/s. 2. Less than 50% stenosis=ICA PSV < 125 cm/s: ratio < 2.0: ICA EDV<40 cm/s. 3. 50 to 69% stenosis=ICA PSV of 125 to 230 cm/s: ration 2.0 ? 4.0: ICA EDV 40-100 cm/s. 4. Greater than 70% stenosis to near occlusion= ICA PSV > 230 cm/s: ratio > 4.0: ICA EDV > 100 cm/s. 5. Near occlusion= ICA PSV velocities may be low or undetectable: variable ratio and ICA EDV. 6. Total occlusion=unable to detect flow.
== END | disposition home or self-care (01) ==
LOC: RADUSWWP 14:56
PROVIDERS: ATTEND Family Medicine
DX: R55 Syncope and collapse (principal); I95.0 Idiopathic hypotension; Z88.1 Allergy status to other antibiotic agents; Z88.5 Allergy status to narcotic agent; Z88.6 Allergy status to analgesic agent; Z88.8 Allergy status to other drugs, medicaments and biological substances
CPT/HCPCS: 93880

== ENCOUNTER → 2020-12-05 | Outpatient (CLI) | payer MEDICAID ==
--- NOTE | 2020-12-05 15:41 | P.SLEEP ---
History of Present Illness H&P Date: 12/05/20 this is a 45-year-old male patient was coming in for a sleep apnea evaluation. This evaluation is being done upon the request of his neurologist. The patient was involved in a Adalid monoxide toxicity back in 2019 and since then the patient is having headaches, difficulties with memory, fish, cloudiness and feeling foggy during the day. Nevertheless, his fatigue and sleepiness was present even prior to this, monoxide toxicity. In any rate, the patient was told to have snoring and at times he was noted to quit breathing at night and this was noted by his . For that reason the patient was referred to me. No recent weight gain. Denies waking up choking or gasping for air. No nocturia. He has excessive fatigue and some sleepiness during the day. He is waking up tired in the morning. He goes to bed around 11 PM and wakes at 7 AM in the morning. Sometimes it takes him more than 30 minutes to fall asleep. Nevertheless, he is able to generate and maintaining sleep for most of the time. He prefers to sleep on his side and sometimes he sleeps on his back. He takes no naps during the day. No restlessness in his lower extremities. No sleep paralysis. No hallucinations. No cataplexy. No history of any motor vehicle accident because of feeling drowsy or sleepy. No personal or family history of obstructive sleep apnea. He is known to have chronic bronchial asthma and he has multiple environmental ALLERGIES and he continues to receive immunotherapy/ALLERGY shots every 2 weeks. The patient used to use also medical marijuana for chronic back pain and currently he is off medical marijuana. He is a nonsmoker. Review of Systems Constitutional: Reports daytime sleepiness, Reports fatigue Eyes: denies as per HPI, denies blurred vision, denies bulging eye, denies decreased vision, denies diplopia, denies discharge, denies dry eye, denies irritation, denies itching, denies pain, denies photophobia, denies loss of peripheral vision, denies loss of vision, denies tunnel vision/blind spots Ears: deny: decreased hearing, ear discharge, earache, tinnitus Ears, nose, mouth and throat: Denies headache, Denies sore throat Breasts: absent: as per HPI, gynecomastia Cardiovascular: Reports as per HPI Respiratory: Reports snoring Gastrointestinal: Reports as per HPI Genitourinary: Reports as per HPI Musculoskeletal: Reports as per HPI, Reports low back pain Musculoskeletal: absent: ankle pain, ankle stiffness, ankle swelling Integumentary: Reports as per HPI Neurological: Reports headaches, Reports memory loss Psychiatric: Reports as per HPI Endocrine: Reports as per HPI, Reports fatigue Hematologic/Lymphatic: Reports as per HPI Allergic/Immunologic: Reports allergic rhinitis, Reports seasonal allergies Past Medical History Past Medical History: Asthma, GERD/Reflux, Hyperlipidemia, Osteoarthritis (OA) Additional Past Medical History / Comment(s): HIATAL HERNIA, Recurrent ear infections and ruptured eardrums. Chronic back pain.Patient also has history of carbon monoxide exposure/toxicity History of Any Multi-Drug Resistant Organisms: None Reported Past Surgical History: Hernia Repair, Tonsillectomy Additional Past Surgical History / Comment(s): RIGHT AND LEFT EAR SURGERY, SINUS SURGERY, LEFT WRIST, LEFT HAND SURGERY, HERNIA REPAIR X2. COLONOSCOPY Past Anesthesia/Blood Transfusion Reactions: No Reported Reaction Past Psychological History: No Psychological Hx Reported Smoking Status: Former smoker Past Alcohol Use History: Rare Additional Past Alcohol Use History / Comment(s): STARTED SMOKING AT AGE 14 QUIT 2011 SMOKED 1PPD Past Drug Use History: Marijuana Additional Drug Use History / Comment(s): MEDICAL CARD MARIJUANA. Uses 3-4 times a week. - Past Family History Mother Family Medical History: No Reported History Medications and Allergies Home Medications Medication Instructions Recorded Confirmed Type Pantoprazole Sodium [Protonix] 40 mg PO BID 10/11/16 08/05/20 History Budesonide-Formot 160-4.5 Mcg 2 puff INHALATION RT-BID 06/03/17 08/05/20 History [Symbicort 160-4.5 Mcg Inhaler] Montelukast [Singulair] 10 mg PO HS 06/03/17 08/05/20 History Nortriptyline [Pamelor] 75 mg PO HS 08/05/20 08/05/20 History Allergies Allergy/AdvReac Type Severity Reaction Status Date / Time bacitracin Allergy Rash/Hives Verified 08/05/20 22:52 cephalexin [From Keflex] Allergy Rash/Hives Verified 08/05/20 22:52 clindamycin Allergy Anaphylaxis Verified 08/05/20 22:52 codeine Allergy Nausea & Verified 08/05/20 22:52 Vomiting/Rash Iodinated Contrast Media Allergy Rash/Hives Verified 08/05/20 22:52 neomycin Allergy Rash/Hives Verified 08/05/20 22:52 [From Neosporin ([id number])] polymyxin B Allergy Rash/Hives Verified 08/05/20 22:52 [From Neosporin ([id number])] tetracycline Allergy Rash/Hives Verified 08/05/20 22:52 Physical Exam The patient appeared well nourished and normally developed. Vital signs as documented. Head exam is unremarkable. No scleral icterus or corneal arcus noted. Neck is without jugular venous distension, thyromegaly, or carotid bruits. Carotid upstrokes are brisk bilaterally. the patient has a Mallampati class 1-2Lungs are clear to auscultation and percussion. Cardiac exam reveals the PMI to be normally sized and situated. Rhythm is regular. First and second heart sounds normal. No murmurs, rubs or gallops. Abdominal exam reveals normal bowel sounds, no masses, no organomegaly and no aortic enlargement. Extremities are nonedematous and both femoral and pedal pulses are normal.Examination of the skin revealed no evidence of significant rashes, suspicious appearing nevi or other concerning lesions.Neurologically, the patient is awake and alert and the patient does not have any focal neurological deficit. Cranial nerves are essentially intact. Assessment and Plan Plan: 1 chronic fatigue and limited hypersomnia and the patient has an Wellington score of 4. Consider underlying obstructive sleep apnea. He has been exposed to carbon monoxide back in 2019 and his symptoms have gotten worse since that exposure. The patient was referred for sleep apnea evaluation. He has snoring, questionable witnessed apneas. No significant sleep fragmentation. No obesity. BMI is 33. He is Mallampati class 1-2. 2 history of carbon monoxide toxicity. 3 history of chronic bronchial asthma 4 history of chronic intermittent ALLERGIES receiving immunotherapy 5 hyperlipidemia 6 osteoarthritis and history of chronic back pain 7 previous history of sinus surgeries and recurrent ear infections Plan I'm not absolute sure that the patient is an underlying sleep breathing disorder. His symptoms could be essentially related to previous carbon monoxide exposure and subsequent brain injury.we'll investigate this patient further for an underlying sleep apnea. We will proceed with a screening polysomnogram to evaluate the patient's overall sleep quality, sleep architecture and rule out any form of sleep breathing disorder. Based on the results, we'll make further recommendations. Sleep Note - Sleep Note Sleep Note: Temperature:97.9 Pulse Rate: 81 Respiratory Rate: 20 Blood Pressure: 138/94 SpO2: 98% Height: 5 feet 8 inches Weight: 211 pounds BMI: 33 Neck Circumference: 18 inches
== END | disposition home or self-care (01) ==
LOC: SLEEP 14:47
PROVIDERS: ATTEND Internal Medicine Critical Care Medicine
DX: G47.10 Hypersomnia, unspecified (principal); E78.5 Hyperlipidemia, unspecified; M19.90 Unspecified osteoarthritis, unspecified site; G89.29 Other chronic pain; Z87.898 Personal history of other specified conditions; Z87.09 Personal history of other diseases of the respiratory system; Z91.09 Other allergy status, other than to drugs and biological substances; Z86.69 Personal history of other diseases of the nervous system and sense organs; Z88.5 Allergy status to narcotic agent; Z88.8 Allergy status to other drugs, medicaments and biological substances; Z88.1 Allergy status to other antibiotic agents; Z91.041 Radiographic dye allergy status; Z79.899 Other long term (current) drug therapy
CPT/HCPCS: 99211

== ENCOUNTER → 2021-02-05 | Outpatient (CLI) | payer MEDICAID ==
--- NOTE | 2021-02-05 07:45 | US ---
EXAMINATION TYPE: US abdomen complete DATE OF EXAM: 02/05/2021 COMPARISON: NONE CLINICAL HISTORY: 02/05/21. Pain EXAM MEASUREMENTS: Liver Length: 14 cm Gallbladder Wall: .2 cm CBD: .4 cm Spleen: 11.3 cm Right Kidney: 11.0 x 5.2 x 4.4 cm Left Kidney: 10.3 x 5.1 x 4.2 cm Pancreas: Obscured by bowel gas Liver: Increased attenuation Gallbladder: No stones seen Evidence for sonographic Bruce's sign: No CBD: wnl Spleen: wnl Right Kidney: wnl Left Kidney: wnl Upper IVC: wnl Abd Aorta: wnl The liver is homogenous. The intrahepatic portion of the IVC and proximal abdominal aorta are within normal limits. There is no evidence of cholelithiasis. Common bile duct is unremarkable. The visu alized portions of the pancreas are homogenous. The spleen is unremarkable. Kidneys are symmetric a nd free of hydronephrosis. No renal lesions are seen. IMPRESSION: No distinct abnormality seen.
[2021-02-05 09:21] LABS: ALT 26 U/L (4-49); AST 25 U/L (17-59); African American GFR (CKD) >90 (>60 ml/min/1.73 sqM); Albumin 4.4 g/dL (3.5-5.0); Alkaline Phosphatase 59 U/L (38-126); Anion Gap 6 mmol/L; Blood Urea Nitrogen 17 mg/dL (9-20); Calcium 9.3 mg/dL (8.4-10.2); Carbon Dioxide 28 mmol/L (22-30); Chloride 104 mmol/L (98-107); Cholesterol 219 mg/dL (<200); Glucose 106 mg/dL (74-99); HDL Cholesterol 48 mg/dL (40-60); LDL Cholesterol,Calculated 146 mg/dL (0-99); Non-African American GFR(CKD) >90 (>60 ml/min/1.73 sqM); Potassium 4.6 mmol/L (3.5-5.1); Sodium 138 mmol/L (137-145); Total Bilirubin 0.5 mg/dL (0.2-1.3); Total Protein 7.1 g/dL (6.3-8.2); Triglycerides 126 mg/dL (<150)
[2021-02-05 09:31] LABS: Basophils % (A) 0 %; Eosinophils # (A) 0.1 k/uL (0-0.7); Eosinophils % (A) 1 %; HCT 43.9 % (39.0-53.0); HGB 14.9 gm/dL (13.0-17.5); Lymphocytes # (A) 1.8 k/uL (1.0-4.8); Lymphocytes % (A) 29 %; MCH 31.2 pg (25.0-35.0); MCV 91.8 fL (80.0-100.0); Mean Platelet Volume 7.3; Monocytes # (A) 0.3 k/uL (0-1.0); Monocytes % (A) 6 %; Neutrophils # (A) 3.8 k/uL (1.3-7.7); Neutrophils % (A) 62 %; Platelet Count 204 k/uL (150-450); RBC 4.78 m/uL (4.30-5.90); RDW 12.9 % (11.5-15.5); WBC 6.1 k/uL (3.8-10.6)
== END | disposition home or self-care (01) ==
LOC: RADUSWWP 07:07
PROVIDERS: ATTEND Family Medicine
DX: R10.11 Right upper quadrant pain (principal); Z00.00 Encounter for general adult medical examination without abnormal findings; Z79.899 Other long term (current) drug therapy; Z13.220 Encounter for screening for lipoid disorders
CPT/HCPCS: 76700; 80053; 80061; 84443; 85025

== ENCOUNTER → 2021-06-14 | Outpatient (CLI) | payer MEDICAID ==
[2021-06-14 14:38] LABS: INR 0.94 (0.90-1.11); Prothrombin Time 10.3 sec (9.9-11.9)
[2021-06-14 14:58] LABS: Basophils # (A) 0.03 X 10*3/uL (0.00-0.10); Basophils % (A) 0.4 %; Eosinophils # (A) 0.09 X 10*3/uL (0.04-0.35); Eosinophils % (A) 1.2 %; HCT 42.2 % (39.6-50.0); HGB 14.2 g/dL (13.0-17.0); Lymphocytes # (A) 1.68 X 10*3/uL (0.90-5.00); Lymphocytes % (A) 22.7 %; MCH 31.5 pg (27.0-32.0); MCHC 33.6 g/dL (32.0-37.0); MCV 93.6 fL (80.0-97.0); Mean Platelet Volume 10.4 fL (9.5-12.2); Monocytes # (A) 0.42 X 10*3/uL (0.20-1.00); Monocytes % (A) 5.7 %; Neutrophils # (A) 5.14 X 10*3/uL (1.80-7.70); Neutrophils % (A) 69.6 %; Platelet Count 237 X 10*3/uL (140-440); RBC 4.51 X 10*6/uL (4.40-5.60); WBC 7.39 X 10*3/uL (4.50-10.00)
[2021-06-15 01:19] LABS: Chol/HDL Ratio 4.54; LDL Cholesterol,Calculated 150.6 mg/dL (0.0-131.0); VLDL Calculation 26.4 mg/dL (5.00-40.00)
== END | disposition home or self-care (01) ==
LOC: LABWHC1 09:10
PROVIDERS: ATTEND Nurse Practitioner Family
DX: E78.00 Pure hypercholesterolemia, unspecified (principal); E78.5 Hyperlipidemia, unspecified; R23.3 Spontaneous ecchymoses; R04.0 Epistaxis
CPT/HCPCS: 36415; 80061; 85025; 85610

== ENCOUNTER 2022-01-08 21:01 | Emergency (ER) | payer MEDICAID ==
[2022-01-08] MEDS ORDERED: ACETAMINOPHEN TAB 500 MG TAB PO STA (23:33)
[2022-01-08] MEDS ORDERED: KETOROLAC 15 MG/ML 1 ML VIAL IVP STA (23:33)
[2022-01-08] MEDS ORDERED: SODIUM CHLORIDE 0.9% 1,000 ML IV STA ×2 (23:33)
[2022-01-08] MEDS ORDERED: DEXAMETHASONE SOD PHOSPHATE 10 MG/ML 1 ML VIAL IVP STA (23:33)
[2022-01-08] MEDS ORDERED: SODIUM CHLORIDE 0.9% 500 ML 500 ML IV STA (23:33)
--- NOTE | 2022-01-08 23:43 | ED ---
Recheck HPI - General Chief Complaint: Upper Respiratory Infection Stated Complaint: Fever,sore throat Time Seen by Provider: 01/08/22 22:56 Source: patient, RN notes reviewed, old records reviewed Mode of arrival: ambulatory Limitations: no limitations - History of Present Illness Initial Comments: This is a 38-year-old male DF for evaluation. Patient coming in for generalized body aches and chills. Sore throat. Fever. Recent does believe he has positive coronavirus exposure. With also prior positive coronavirus testing. Patient feels weak dehydrated lightheaded dizzy overall not feeling well. Patient does suffer from asthma but no real specific shortness of breath currently MD Complaint: abnormal lab (Known coronavirus) -: days(s) Returns Today for: persistent/worsening pain related to initial visit Symptoms Since Prior Visit: worsening pain, fever Context: planned re-check Associated Symptoms: fever, chills, shortness of breath, nausea Treatments Prior to Arrival: home treatments - Related Data Home Medications Medication Instructions Recorded Confirmed Pantoprazole Sodium [Protonix] 40 mg PO BID 10/11/16 02/01/22 Budesonide-Formot 160-4.5 Mcg 2 puff INHALATION RT-BID 06/03/17 02/01/22 [Symbicort 160-4.5 Mcg Inhaler] Montelukast [Singulair] 10 mg PO HS 06/03/17 02/01/22 Allergies Allergy/AdvReac Type Severity Reaction Status Date / Time bacitracin Allergy Rash/Hives Verified 02/01/22 11:13 cephalexin [From Keflex] Allergy Rash/Hives Verified 02/01/22 11:13 clindamycin Allergy Anaphylaxis Verified 02/01/22 11:13 codeine Allergy Nausea & Verified 02/01/22 11:13 Vomiting/Rash Iodinated Contrast Media Allergy Rash/Hives Verified 02/01/22 11:13 neomycin Allergy Rash/Hives Verified 02/01/22 11:13 [From Neosporin ([id number])] polymyxin B Allergy Rash/Hives Verified 02/01/22 11:13 [From Neosporin ([id number])] tetracycline Allergy Rash/Hives Verified 02/01/22 11:13 Review of Systems ROS Statement: Those systems with pertinent positive or pertinent negative responses have been documented in the HPI. ROS Other: All systems not noted in ROS Statement are negative. Past Medical History Past Medical History: Asthma, GERD/Reflux, Hyperlipidemia, Osteoarthritis (OA) Additional Past Medical History / Comment(s): HIATAL HERNIA, Recurrent ear infections and ruptured eardrums. Chronic back pain.Patient also has history of carbon monoxide exposure/toxicity History of Any Multi-Drug Resistant Organisms: None Reported Past Surgical History: Hernia Repair, Tonsillectomy Additional Past Surgical History / Comment(s): RIGHT AND LEFT EAR SURGERY, SINUS SURGERY, LEFT WRIST, LEFT HAND SURGERY, HERNIA REPAIR X2. COLONOSCOPY Past Anesthesia/Blood Transfusion Reactions: No Reported Reaction Past Psychological History: No Psychological Hx Reported Smoking Status: Former smoker Past Alcohol Use History: Rare Past Drug Use History: Marijuana - Past Family History Mother Family Medical History: No Reported History General Exam Limitations: no limitations General appearance: alert, in no apparent distress Head exam: Present: atraumatic, normocephalic, normal inspection Eye exam: Present: normal appearance, PERRL, EOMI. Absent: scleral icterus, conjunctival injection, periorbital swelling ENT exam: Present: normal exam, mucous membranes moist Neck exam: Present: normal inspection. Absent: tenderness, meningismus, lymphadenopathy Respiratory exam: Present: normal lung sounds bilaterally. Absent: respiratory distress, wheezes, rales, rhonchi, stridor Cardiovascular Exam: Present: normal rhythm, tachycardia, normal heart sounds. Absent: systolic murmur, diastolic murmur, rubs, gallop, clicks GI/Abdominal exam: Present: soft, normal bowel sounds. Absent: distended, tend erness, guarding, rebound, rigid Extremities exam: Present: normal inspection, full ROM, normal capillary refill. Absent: tenderness, pedal edema, joint swelling, calf tenderness Back exam: Present: normal inspection Neurological exam: Present: alert, oriented X3, CN II-XII intact Psychiatric exam: Present: normal affect, normal mood Skin exam: Present: warm, dry, intact, normal color. Absent: rash Course Vital Signs 01/08/22 01/09/22 01/09/22 21:09 00:13 03:13 Temperature 98.6 F 98.9 F Pulse Rate 101 H 90 89 Respiratory 20 20 18 Rate Blood Pressure 144/77 134/68 128/90 O2 Sat by Pulse 97 96 95 Oximetry 01/09/22 04:00 Temperature Pulse Rate 65 Respiratory 18 Rate Blood Pressure 122/80 O2 Sat by Pulse 96 Oximetry - Reevaluation(s) Reevaluation #1: 01/09/2022 Medical record is reviewed Patient symptoms are improved here in the ER Patient informed results questions are answered Medical Decision Making - Medical Decision Making 38 male to the emergency department with sore throat positive for coronavirus. Patient is in no acute distress and can be discharged home - Lab Data Result diagrams: 01/09/22 00:00 01/09/22 00:00 Lab Results 01/09/22 01/09/22 Range/Units 00:00 00:00 WBC 7.2 (3.8-10.6) k/uL RBC 5.01 (4.30-5.90) m/uL Hgb 15.3 (13.0-17.5) gm/dL Hct 46.8 (39.0-53.0) % MCV 93.4 (80.0-100.0) fL MCH 30.6 (25.0-35.0) pg MCHC 32.8 (31.0-37.0) g/dL RDW 12.7 (11.5-15.5) % Plt Count 173 (150-450) k/uL MPV 7.4 Neutrophils % 79 % Lymphocytes % 10 % Monocytes % 7 % Eosinophils % 1 % Basophils % 2 % Neutrophils # 5.6 (1.3-7.7) k/uL Lymphocytes # 0.7 L (1.0-4.8) k/uL Monocytes # 0.5 (0-1.0) k/uL Eosinophils # 0.1 (0-0.7) k/uL Basophils # 0.2 (0-0.2) k/uL Sodium 136 L (137-145) mmol/L Potassium 3.9 (3.5-5.1) mmol/L Chloride 103 (98-107) mmol/L Carbon Dioxide 24 (22-30) mmol/L Anion Gap 9 mmol/L BUN 16 (9-20) mg/dL Creatinine 1.06 (0.66-1.25) mg/dL Est GFR (CKD-EPI)AfAm >90 (>60 ml/min/1.73 sqM) Est GFR (CKD-EPI)NonAf 83 (>60 ml/min/1.73 sqM) Glucose 108 H (74-99) mg/dL Calcium 8.7 (8.4-10.2) mg/dL Magnesium 1.8 (1.6-2.3) mg/dL Total Bilirubin 0.7 (0.2-1.3) mg/dL AST 30 (17-59) U/L ALT 28 (4-49) U/L Alkaline Phosphatase 64 (38-126) U/L Lactate Dehydrogenase 466 (313-618) U/L C-Reactive Protein 3.8 H (<1.0) mg/dL Total Protein 7.7 (6.3-8.2) g/dL Albumin 4.5 (3.5-5.0) g/dL - EKG Data -: EKG Interpreted by Me (EKG shows sinus tachycardia 113 SD 140 QRS 94 QTC 410) Disposition Clinical Impression: Coronavirus infection Disposition: HOME SELF-CARE Condition: Good Instructions (If sedation given, give patient instructions): Coronavirus Disease 2019 (COVID-19) Is patient prescribed a controlled substance at d/c from ED?: No Referrals: Chacho Lee MD [Primary Care Provider] - 1-2 days
[2022-01-09 00:09] LABS: Basophils # (A) 0.2 k/uL (0-0.2); Basophils % (A) 2 %; Eosinophils # (A) 0.1 k/uL (0-0.7); Eosinophils % (A) 1 %; HCT 46.8 % (39.0-53.0); HGB 15.3 gm/dL (13.0-17.5); Lymphocytes # (A) 0.7 k/uL (1.0-4.8); Lymphocytes % (A) 10 %; MCH 30.6 pg (25.0-35.0); MCHC 32.8 g/dL (31.0-37.0); MCV 93.4 fL (80.0-100.0); Mean Platelet Volume 7.4; Monocytes # (A) 0.5 k/uL (0-1.0); Monocytes % (A) 7 %; Neutrophils # (A) 5.6 k/uL (1.3-7.7); Neutrophils % (A) 79 %; Platelet Count 173 k/uL (150-450); RBC 5.01 m/uL (4.30-5.90); RDW 12.7 % (11.5-15.5); WBC 7.2 k/uL (3.8-10.6)
[2022-01-09 00:31] LABS: ALT 28 U/L (4-49); AST 30 U/L (17-59); African American GFR (CKD) >90 (>60 ml/min/1.73 sqM); Albumin 4.5 g/dL (3.5-5.0); Alkaline Phosphatase 64 U/L (38-126); Anion Gap 9 mmol/L; Blood Urea Nitrogen 16 mg/dL (9-20); C Reactive Protein 3.8 mg/dL (<1.0); Calcium 8.7 mg/dL (8.4-10.2); Carbon Dioxide 24 mmol/L (22-30); Chloride 103 mmol/L (98-107); Glucose 108 mg/dL (74-99); LDH 466 U/L (313-618); Magnesium 1.8 mg/dL (1.6-2.3); Non-African American GFR(CKD) 83 (>60 ml/min/1.73 sqM); Potassium 3.9 mmol/L (3.5-5.1); Sodium 136 mmol/L (137-145); Total Bilirubin 0.7 mg/dL (0.2-1.3); Total Protein 7.7 g/dL (6.3-8.2)
[2022-01-09] MEDS ORDERED: SODIUM CHLORIDE 0.9% 50 ML IVPB ONE (02:30)
[2022-01-09] MEDS ORDERED: SOTROVIMAB (EUA) 500 MG in SODIUM CHLORIDE 0.9% 100 ML IVPB ONE (02:30)
[2022-01-09 03:56] VITALS: RESP 18; TEMP 98.9
[2022-01-09 04:15] VITALS: BP 122/80; PULSE 65
== END 2022-01-09 04:54 | disposition home or self-care (01) ==
LOC: EC 21:01
DX: U07.1 COVID-19 (principal); J45.909 Unspecified asthma, uncomplicated; K21.9 Gastro-esophageal reflux disease without esophagitis; Z79.51 Long term (current) use of inhaled steroids; Z87.891 Personal history of nicotine dependence; Z88.1 Allergy status to other antibiotic agents
CPT/HCPCS: 36415; 93005; 80053; 83615; 83735; 85025; 86140; 99285; 96374; 96375; 96361 ×3; J1100; J1885; Q0247

== ENCOUNTER → 2022-07-09 | Day surgery (SDC) | payer MEDICAID ==
[~2022-07-09] MED LIST changes: -DEXAMETHASONE SOD PHOSPHATE 10 MG/ML 1 ML VIAL IV ONE; -DEXAMETHASONE SOD PHOSPHATE 4 MG/ML 1 ML VIAL IV ONE; -FAMOTIDINE 20 MG/2 ML VIAL IV ONE; -FAMOTIDINE 20 MG/2 ML VIAL IV PRN; -HYDROmorphone 1 MG/ML 1 ML SYRINGE IVP PRN; +LACTATED RINGERS 1,000 ML IV ONE; -LACTATED RINGERS 1,000 ML IV SCH; -LIDOCAINE 1% 20 ML VIAL (10MG/ML) FOR IV START INTRADERMA PRN; +LIDOCAINE 2% INJ 20 MG/ML (2 ML VIAL) ONE; -MIDAZOLAM 2 MG/2 ML VIAL IV PRN; -ONDANSETRON 4 MG/2 ML VIAL IVP ONE; +PROPOFOL 10 MG/ML 20 ML VIAL IV ONE
[2022-07-09 09:49] VITALS: TEMP 96
--- NOTE | 2022-07-09 10:10 | P.GSHP ---
History of Present Illness H&P Date: 07/09/22 Chief Complaint: GERD 47-year-old male with history of reflux. Patient with known hiatal hernia. Last EGD in 2018. Patient on Protonix daily. He takes this twice daily. With his medications his symptoms are fairly well controlled. Past Medical History Past Medical History: Asthma, Cancer, GERD/Reflux, Hyperlipidemia, Osteoarthritis (OA) Additional Past Medical History / Comment(s): HIATAL HERNIA, Recurrent ear infections and ruptured eardrums. Chronic back pain.Patient also has history of carbon monoxide exposure/toxicity 2018-still w/frequent headaches, skin cancer, covid in January-antibody infusion, approx. week after had episode of syncope @home, EMS came, very low heart rate, has seen card. regarding but no obvious problems found per pt. History of Any Multi-Drug Resistant Organisms: None Reported Past Surgical History: Hernia Repair, Tonsillectomy Additional Past Surgical History / Comment(s): RIGHT AND LEFT EAR SURGERY, SINUS SURGERY, LEFT WRIST, LEFT HAND SURGERY, HERNIA REPAIR X2. COLONOSCOPY, EGD's Past Anesthesia/Blood Transfusion Reactions: No Reported Reaction Smoking Status: Former smoker - Past Family History Mother Family Medical History: No Reported History Father Family Medical History: No Reported History Medications and Allergies Home Medications Medication Instructions Recorded Confirmed Type Pantoprazole Sodium [Protonix] 40 mg PO BID 10/11/16 07/09/22 History Budesonide-Formot 160-4.5 Mcg 2 puff INHALATION RT-BID 06/03/17 07/09/22 History [Symbicort 160-4.5 Mcg Inhaler] Montelukast [Singulair] 10 mg PO HS 06/03/17 07/09/22 History Albuterol Inhaler [Ventolin Hfa 1 - 2 puff INHALATION Q6H PRN 07/05/22 07/09/22 History Inhaler] Allergies Allergy/AdvReac Type Severity Reaction Status Date / Time bacitracin Allergy Rash/Hives Verified 07/09/22 09:46 cephalexin [From Keflex] Allergy Rash/Hives Verified 07/09/22 09:46 clindamycin Allergy Anaphylaxis Verified 07/09/22 09:46 codeine Allergy Nausea & Verified 07/09/22 09:46 Vomiting/Rash Iodinated Contrast Media Allergy Rash/Hives Verified 07/09/22 09:46 neomycin Allergy Rash/Hives Verified 07/09/22 09:46 [From Neosporin ([id number])] polymyxin B Allergy Rash/Hives Verified 07/09/22 09:46 [From Neosporin ([id number])] tetracycline Allergy Rash/Hives Verified 07/09/22 09:46 Surgical - Exam Vital Signs Temp Pulse Resp BP Pulse Ox 96 F L 63 18 132/76 97 07/09/22 09:48 07/09/22 09:48 07/09/22 09:48 07/09/22 09:48 07/09/22 09:48 Physical exam: General: Well-developed, well-nourished HEENT: Normocephalic, sclerae nonicteric Abdomen: Nontender, nondistended Extremities: No edema Neuro: Alert and oriented Assessment and Plan (1) GERD (gastroesophageal reflux disease) Narrative/Plan: Will proceed with upper endoscopy. Current Visit: Yes Status: Acute Code(s): K21.9 - GASTRO-ESOPHAGEAL REFLUX DISEASE WITHOUT ESOPHAGITIS SNOMED Code(s): 789339478
--- NOTE | 2022-07-09 10:16 | P.PCN ---
Date of Procedure: 07/09/22 Procedure(s) Performed: Preoperative Dx: GERD, hiatal hernia Postoperative Dx: Gastritis, hiatal hernia Procedure: EGD with Bx Anesthesia: Sedation Endoscopist: Dr. Smith Specimens: Antrum Endoscopic Procedure: The patient was on the endoscopy table in the left decubitus position. The Olympus gastroscope was inserted into the oropharynx and passed under direct visualization to the region of the third portion of the duodenum. From that point the scope was slowly withdrawn inspecting all surfaces carefully. There were no neoplastic inflammatory or polypoid lesions throughout the duodenum. The pylorus was widely patent. The stomach was carefully inspected. There was minimal gastritis present. A biopsy of the antrum took place to rule out H. pylori. Retroflexion revealed a moderate sized hiatal hernia. GE junction was present 5 cm above the diaphragm. The esophagus was then carefully examined. There were no neoplastic inflammatory or polypoid lesions throughout the visualized esophagus. The patient was then taken to the recovery room in stable condition per anesthesia guidelines. Recommendations: Continue antiacid therapy. We'll discuss surgical options with patient.
[2022-07-09 10:31] VITALS: BP 116/72; PULSE 67; RESP 20
== END ==
LOC: ORWHC2ENDO 09:27
PROVIDERS: ATTEND Surgery
DX: K29.50 Unspecified chronic gastritis without bleeding (principal); K44.9 Diaphragmatic hernia without obstruction or gangrene; K21.9 Gastro-esophageal reflux disease without esophagitis; J45.909 Unspecified asthma, uncomplicated; Z88.2 Allergy status to sulfonamides; Z88.3 Allergy status to other anti-infective agents; Z91.041 Radiographic dye allergy status; Z79.899 Other long term (current) drug therapy; Z79.51 Long term (current) use of inhaled steroids; Z88.5 Allergy status to narcotic agent; Z87.891 Personal history of nicotine dependence
CPT/HCPCS: 88305; 43239; J2704; J2001

== ENCOUNTER 2022-08-27 11:12 | Emergency (ER) | payer MEDICAID ==
[2022-08-27 11:27] VITALS: PULSE 87; TEMP 98
[2022-08-27] MEDS ORDERED: SODIUM CHLORIDE 0.9% 1,000 ML IV STA (12:27)
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
--- NOTE | 2022-08-27 13:03 | XR ---
EXAMINATION TYPE: XR chest 2V DATE OF EXAM: 08/27/2022 12:58 PM COMPARISON: Chest radiographs from 01/11/2022. TECHNIQUE: XR chest 2V Frontal and lateral views of the chest. CLINICAL INDICATION:Male, 47 years old with history of syncope; FINDINGS: Lungs/Pleura: There is no evidence of pleural effusion, focal consolidation, or pneumothorax. Pulmonary vascularity: Unremarkable. Heart/mediastinum: Cardiomediastinal silhouette is unremarkable. Musculoskeletal: No acute osseous pathology. Other: Moderate size hiatal hernia demonstrated. IMPRESSION: 1. No acute cardiopulmonary disease/process. 2. Moderate size hiatal hernia redemonstrated.
[2022-08-27 13:27] LABS: Basophils # (A) 0.1 k/uL (0-0.2); Basophils % (A) 1 %; Eosinophils # (A) 0.1 k/uL (0-0.7); Eosinophils % (A) 1 %; HCT 45.8 % (39.0-53.0); HGB 15.8 gm/dL (13.0-17.5); Lymphocytes # (A) 0.9 k/uL (1.0-4.8); Lymphocytes % (A) 13 %; MCH 31.5 pg (25.0-35.0); MCHC 34.5 g/dL (31.0-37.0); MCV 91.1 fL (80.0-100.0); Mean Platelet Volume 7.5; Monocytes # (A) 0.5 k/uL (0-1.0); Monocytes % (A) 7 %; Neutrophils # (A) 5.8 k/uL (1.3-7.7); Neutrophils % (A) 78 %; Platelet Count 189 k/uL (150-450); RBC 5.03 m/uL (4.30-5.90); RDW 12.7 % (11.5-15.5); WBC 7.5 k/uL (3.8-10.6)
[2022-08-27 13:32] LABS: Appearance,Urine Clear (Clear); Bilirubin,Urine Negative (Negative); Blood,Urine Trace (Negative); Color,Urine Light Yellow; Glucose,Urine (UA) Negative (Negative); Ketones,Urine Negative (Negative); Leukocyte Esterase,Urine Negative (Negative); Mucus,Urine Occasional /hpf; Nitrite,Urine Negative (Negative); Protein,Urine Negative (Negative); RBC,Urine 2 /hpf (0-5); Specific Gravity,Urine 1.012 (1.001-1.035); Urobilinogen,Urine <2.0 mg/dL (<2.0); WBC,Urine 1 /hpf (0-5)
[2022-08-27 13:35] LABS: INR 0.9 (<1.2); Partial Thromboplastin Time 24.9 sec (22.0-30.0); Prothrombin Time 10.2 sec (9.0-12.0)
[2022-08-27 13:39] LABS: ALT 31 U/L (4-49); AST 29 U/L (17-59); African American GFR (CKD) >90 (>60 ml/min/1.73 sqM); Albumin 4.7 g/dL (3.5-5.0); Alkaline Phosphatase 78 U/L (38-126); Anion Gap 9 mmol/L; Blood Urea Nitrogen 15 mg/dL (9-20); Calcium 9.1 mg/dL (8.4-10.2); Carbon Dioxide 26 mmol/L (22-30); Chloride 104 mmol/L (98-107); Glucose 103 mg/dL (74-99); Non-African American GFR(CKD) >90 (>60 ml/min/1.73 sqM); Potassium 4.6 mmol/L (3.5-5.1); Sodium 139 mmol/L (137-145); Total Bilirubin 0.8 mg/dL (0.2-1.3); Total Protein 7.5 g/dL (6.3-8.2)
[2022-08-27 14:21] VITALS: BP 121/84; RESP 18
== END 2022-08-27 14:26 | disposition home or self-care (01) ==
LOC: EC 11:12
DX: J06.9 Acute upper respiratory infection, unspecified (principal); J45.909 Unspecified asthma, uncomplicated; K21.9 Gastro-esophageal reflux disease without esophagitis; E78.5 Hyperlipidemia, unspecified; M19.90 Unspecified osteoarthritis, unspecified site; Z87.891 Personal history of nicotine dependence; Z79.51 Long term (current) use of inhaled steroids; Z79.899 Other long term (current) drug therapy; Z88.1 Allergy status to other antibiotic agents; Z88.5 Allergy status to narcotic agent
CPT/HCPCS: 36415; 71046; 80053; 81001; 83735; 85025; 85610; 85730; 93005; 96360; 99285

== ENCOUNTER → 2022-09-12 | Outpatient (CLI) | payer MEDICAID ==
--- NOTE | 2022-09-12 14:16 | XR ---
EXAMINATION TYPE: XR orbit detect foreign body DATE OF EXAM: 09/12/2022 COMPARISON: 03/18/2020 HISTORY: 47-year-old male patient with history of metal in eyes or face. Z18.10 Stat Foreign Body cl earance for MRI TECHNIQUE: 3 views FINDINGS: Some scattered dental amalgam is present. No retained metal debris seen along the face or e ither orbit. IMPRESSION: No retained metal debris seen. Clear for MRI.
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
== END | disposition home or self-care (01) ==
LOC: RADMRIMAIN 13:21
PROVIDERS: ATTEND Psychiatry & Neurology Neurology
DX: J34.89 Other specified disorders of nose and nasal sinuses (principal); G43.909 Migraine, unspecified, not intractable, without status migrainosus; Z18.10 Retained metal fragments, unspecified
CPT/HCPCS: 70030; 70551

== ENCOUNTER → 2022-12-27 | Outpatient (CLI) | payer MEDICAID ==
--- NOTE | 2022-12-28 01:16 | MR ---
EXAMINATION TYPE: MR shoulder RT wo con DATE OF EXAM: 12/27/2022 COMPARISON: None HISTORY: RT SHOULDER PAIN, DIFFICULT TO RAISE ARM, INJURY 11-05-2022 Multiplanar multiecho imaging of the right shoulder performed without contrast. The subscapularis tendon is intact. There are small shoulder joint effusion. There is fluid around th e biceps tendon. Glenoid dhruv appear intact. There is patchy increased signal in the supraspinatus t endon at the greater tuberosity of the humerus. There is a small full-thickness tear of the supraspin atus tendon at the attachment on the greater tuberosity on the posterior aspect. The infraspinatus te ndon is intact. The AC joint is intact. No subacromial impingement. No fracture seen. No evidence of focal bone destruction. IMPRESSION: Increased patchy signal in the supraspinatus tendon with swelling consistent with tendinitis. There i s posterior full-thickness tear of the supraspinatus tendon at the greater tuberosity attachment. Kailey ulder joint effusion and subdeltoid effusion consistent with synovitis.
== END | disposition home or self-care (01) ==
LOC: RADMRIMAIN 21:40
PROVIDERS: ATTEND Orthopaedic Surgery Hand Surgery
DX: S52.041A Displaced fracture of coronoid process of right ulna, initial encounter for closed fracture (principal); S62.011D Displaced fracture of distal pole of navicular [scaphoid] bone of right wrist, subsequent encounter for fracture with routine healing; S63.8X1D Sprain of other part of right wrist and hand, subsequent encounter; S43.421D Sprain of right rotator cuff capsule, subsequent encounter; M25.521 Pain in right elbow; M19.011 Primary osteoarthritis, right shoulder; M25.531 Pain in right wrist; M70.21 Olecranon bursitis, right elbow; M25.411 Effusion, right shoulder

== ENCOUNTER → 2023-02-28 | Outpatient (CLI) | payer MEDICAID ==
[2023-02-28 10:50] LABS: Basophils # (A) 0.03 X 10*3/uL (0.00-0.10); Basophils % (A) 0.4 %; Eosinophils # (A) 0.09 X 10*3/uL (0.04-0.35); Eosinophils % (A) 1.3 %; HCT 45.6 % (39.6-50.0); Immature Grans, Automated 0.1 %; Lymphocytes # (A) 1.83 X 10*3/uL (0.90-5.00); Lymphocytes % (A) 27.4 %; MCH 30.5 pg (27.0-32.0); MCHC 32.9 g/dL (32.0-37.0); MCV 92.7 fL (80.0-97.0); Mean Platelet Volume 10.3 fL (9.5-12.2); Monocytes # (A) 0.46 X 10*3/uL (0.20-1.00); Monocytes % (A) 6.9 %; NRBC Per 100 WBC 0 /100 WBCS (0.0-0.0); Neutrophils # (A) 4.26 X 10*3/uL (1.80-7.70); Neutrophils % (A) 63.9 %; Platelet Count 215 X 10*3/uL (140-440); RBC 4.92 X 10*6/uL (4.40-5.60); RDW 13.2 % (11.5-14.5); WBC 6.68 X 10*3/uL (4.50-10.00)
[2023-02-28 11:06] LABS: African American GFR (CKD) 115.8 (60.0-200.0); Albumin 4.5 g/dL (3.8-4.9); Albumin/Globulin Ratio 1.88 (1.60-3.17); Anion Gap 10.6 mmol/L (10.00-18.00); BUN/Creat Ratio 18.67 Ratio (12.00-20.00); Blood Urea Nitrogen 16.8 mg/dL (9.0-27.0); Calcium 9.4 mg/dL (8.7-10.3); Carbon Dioxide 26.4 mmol/L (20.0-27.5); Globulin 2.4 g/dL (1.6-3.3); Non-African American GFR(CKD) 99.9 (60.0-200.0); Potassium 4.6 mmol/L (3.5-5.5); Total Bilirubin 0.4 mg/dL (0.30-1.20); Total Protein 6.9 g/dL (6.2-8.2)
[2023-02-28 21:20] LABS: INR 0.88 (0.90-1.11)
== END | disposition home or self-care (01) ==
LOC: LABWHC1 07:25
PROVIDERS: ATTEND Family Medicine
DX: Z01.812 Encounter for preprocedural laboratory examination (principal); J45.20 Mild intermittent asthma, uncomplicated
CPT/HCPCS: 36415; 80053; 85025; 85610

== ENCOUNTER 2023-10-05 20:48 | Observation (INO) | payer MEDICAID ==
[2023-10-05] MEDS ORDERED: SODIUM CHLORIDE 0.9% 1,000 ML IV STA (21:07)
[2023-10-05] MEDS ORDERED: ASPIRIN 81 MG PO STA (21:07)
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
[2023-10-05 22:02] LABS: Basophils % (A) 0 %; Eosinophils # (A) 0.1 k/uL (0-0.7); Eosinophils % (A) 1 %; HGB 14.8 gm/dL (13.0-17.5); Lymphocytes # (A) 1.6 k/uL (1.0-4.8); Lymphocytes % (A) 19 %; MCHC 34.3 g/dL (31.0-37.0); MCV 93.1 fL (80.0-100.0); Mean Platelet Volume 7.7; Monocytes # (A) 0.6 k/uL (0-1.0); Monocytes % (A) 7 %; Neutrophils # (A) 6.2 k/uL (1.3-7.7); Neutrophils % (A) 72 %; Platelet Count 237 k/uL (150-450); RBC 4.62 m/uL (4.30-5.90); RDW 13.1 % (11.5-15.5); WBC 8.7 k/uL (3.8-10.6)
--- NOTE | 2023-10-05 22:04 | XR ---
EXAMINATION TYPE: XR chest 2V DATE OF EXAM: 10/05/2023 COMPARISON: 08/27/2022 HISTORY: 48-year-old male with chest pain and shortness of breath TECHNIQUE: PA and lateral views FINDINGS: Heart normal size. Aorta and pulmonary vasculature within normal limits. Mild patchy interstitial den sities mid and lower lungs appears relatively similar compared to 08/27/2022. Rounded retrocardiac de nsity. IMPRESSION: 1. Mild patchy interstitial densities mid and lower lungs is similar compared to 08/27/2022. Possible chronic bronchitis or underlying interstitial scarring. No obvious new focal infiltrate is seen. 2. At least a moderate-sized hiatal hernia is suspected.
[2023-10-05 22:13] LABS: ALT 38 U/L (4-49); AST 29 U/L (17-59); African American GFR (CKD) >90 (>60 ml/min/1.73 sqM); Albumin 4.3 g/dL (3.5-5.0); Alkaline Phosphatase 84 U/L (38-126); Anion Gap 13 mmol/L; Blood Urea Nitrogen 17 mg/dL (9-20); Calcium 9.2 mg/dL (8.4-10.2); Carbon Dioxide 18 mmol/L (22-30); Chloride 107 mmol/L (98-107); Glucose 104 mg/dL (74-99); Non-African American GFR(CKD) >90 (>60 ml/min/1.73 sqM); Potassium 4.1 mmol/L (3.5-5.1); Sodium 138 mmol/L (137-145); Total Bilirubin 0.4 mg/dL (0.2-1.3); Total Protein 7.2 g/dL (6.3-8.2)
[2023-10-05 22:17] LABS: INR 0.9 (<1.2); Partial Thromboplastin Time 25.6 sec (22.0-30.0); Prothrombin Time 10.1 sec (10.0-12.5)
[2023-10-05 22:20] LABS: NT-Pro-B-Type Natriuretic Pept <20 pg/mL
[2023-10-05] MEDS ORDERED: PANTOPRAZOLE 40 MG/10 ML VIAL IVP STA (23:03)
[2023-10-05] MEDS ORDERED: SODIUM CHLORIDE 0.9% 1,000 ML IV SCH (23:45)
[2023-10-05] MEDS ORDERED: NITROGLYCERIN SL TABS 0.4 MG TAB SUBLINGUAL PRN (23:45)
[2023-10-05] MEDS ORDERED: ALBUTEROL NEBULIZED 2.5 MG/3 ML INHALATION PRN (23:50)
[2023-10-06] MEDS ORDERED: SYMBICORT 160-4.5 MCG INHALER INHALATION SCH (08:00)
[2023-10-06 08:04] VITALS: BP 118/74; RESP 18; TEMP 98.2
[2023-10-06 08:49] VITALS: PULSE 74
[2023-10-06] MEDS ORDERED: PANTOPRAZOLE 40 MG TABLET PO SCH (09:00)
[2023-10-06] MEDS ORDERED: ASPIRIN 325 MG TAB PO SCH (09:00)
[2023-10-06 09:14] LABS: Chol/HDL Ratio 5.39 Ratio; LDL Cholesterol,Calculated 159.3 mg/dL (0.0-131.0); VLDL Calculation 19.06 mg/dL (5.00-40.00)
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
--- NOTE | 2023-10-06 11:52 | P.DS ---
Providers Date of admission: 10/05/23 23:50 Expected date of discharge: 10/06/23 Attending physician: Chacho Lee Consults: 10/05/23 23:48 Consult Physician Routine Consulting Provider: Mina Griggs Consult Reason/Comments: chest pain Do you want consulting provider notified?: Yes Primary care physician: Chacho Lee - Discharge Diagnosis(es) (1) Diaphoresis Current Visit: Yes Status: Acute (2) Moderate persistent allergic asthma Current Visit: Yes Status: Acute (3) Post-COVID chronic dyspnea Current Visit: Yes Status: Acute (4) Essential (primary) hypertension Current Visit: Yes Status: Acute (5) Gastro-esophageal reflux disease without esophagitis Current Visit: Yes Status: Acute (6) Mixed hyperlipidemia Current Visit: Yes Status: Acute (7) Chest pain Current Visit: No Status: Acute Hospital Course: Patient's test results of been negative. Based on my examination today, he had an episode of diaphoresis of unknown cause. He does have moderate persistent asthma and seasonal allergies. He has been having significant shortness of breath ongoing along with left-sided chest pain since he caught Covid last year. We'll plan on seeing him in the office and having him follow up with pulmonology. He has an elevated LDL and we will discussed a statin for him ou tpatient as well. He'll follow-up in the office next several days. Patient Condition at Discharge: Stable Plan - Discharge Summary Discharge Rx Participant: Yes New Discharge Prescriptions: New methylPREDNISolone Dose Pack [Medrol Dose Pack] 4 mg PO DIRECTED #1 packet Montelukast [Singulair] 10 mg PO DAILY #90 tab Continue Pantoprazole Sodium [Protonix] 40 mg PO BID Fluticasone Nasal [place] [Flonase Nasal [place]] 2 spray EA NOSTRIL DAILY Albuterol Inhaler [Ventolin Hfa Inhaler] 2 puff INHALATION RT-TID PRN PRN Reason: Shortness Of Breath Metoprolol Tartrate [Lopressor] 25 mg PO DAILY Fluticasone/Umeclidin/Vilanter [Trelegy Ellipta 200-62.5-25] 1 puff INHALATION RT-DAILY Discharge Medication List Pantoprazole Sodium [Protonix] 40 mg PO BID 10/11/16 [History] Albuterol Inhaler [Ventolin Hfa Inhaler] 2 puff INHALATION RT-TID PRN 07/05/22 [History] Fluticasone Nasal [place] [Flonase Nasal [place]] 2 spray EA NOSTRIL DAILY 10/06/23 [History] Fluticasone/Umeclidin/Vilanter [Trelegy Ellipta 200-62.5-25] 1 puff INHALATION RT-DAILY 10/06/23 [History] Metoprolol Tartrate [Lopressor] 25 mg PO DAILY 10/06/23 [History] Montelukast [Singulair] 10 mg PO DAILY #90 tab 10/06/23 [Rx] methylPREDNISolone Dose Pack [Medrol Dose Pack] 4 mg PO DIRECTED #1 packet 10/06/23 [Rx] Follow up Appointment(s)/Referral(s): Chacho Lee MD [Primary Care Provider] - 1-2 days Maddie Lam MD [STAFF PHYSICIAN] - 1 Week Discharge Disposition: HOME SELF-CARE
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
[2023-10-06] MEDS ORDERED: MONTELUKAST 10 MG TAB PO SCH (21:00)
== END 2023-10-06 12:32 | disposition home or self-care (01) ==
LOC: EC 20:48 → 6NMEDSUR 23:50
PROVIDERS: ADMIT Family Medicine; ATTEND Family Medicine
DX: R61 Generalized hyperhidrosis (principal); J45.40 Moderate persistent asthma, uncomplicated; U09.9 Post COVID-19 condition, unspecified; I10 Essential (primary) hypertension; K21.00 Gastro-esophageal reflux disease with esophagitis, without bleeding; E78.2 Mixed hyperlipidemia; R07.89 Other chest pain; M19.90 Unspecified osteoarthritis, unspecified site; E66.9 Obesity, unspecified; Z68.31 Body mass index [BMI] 31.0-31.9, adult; R00.2 Palpitations; G89.29 Other chronic pain; M54.9 Dorsalgia, unspecified; Z85.828 Personal history of other malignant neoplasm of skin; Z77.028 Contact with and (suspected) exposure to other hazardous aromatic compounds; R55 Syncope and collapse; R00.1 Bradycardia, unspecified; R51.9 Headache, unspecified; Z79.899 Other long term (current) drug therapy; Z79.51 Long term (current) use of inhaled steroids; Z86.19 Personal history of other infectious and parasitic diseases; Z88.5 Allergy status to narcotic agent; Z88.1 Allergy status to other antibiotic agents; Z91.041 Radiographic dye allergy status; Z87.891 Personal history of nicotine dependence; Z82.49 Family history of ischemic heart disease and other diseases of the circulatory system
CPT/HCPCS: 96361; 96374; 99285; 36415; 94640; 93005; 85379; 83880; 80061; 80053; 83735; 84484 ×2; 85025; 85610; 85730; 87636; 71046; G0378; C9113

== ENCOUNTER → 2023-10-10 | Outpatient (CLI) | payer MEDICAID ==
--- NOTE | 2023-10-10 12:23 | CT ---
EXAMINATION TYPE: CT chest wo con DATE OF EXAM: 10/10/2023 COMPARISON: 08/22/2019 HISTORY: Chest pain at rest, SOB, abnormal findings on recent chest xray 10/05 CT DLP: 539.20 mGycm. Automated Exposure Control for Dose Reduction was Utilized. TECHNIQUE: CT scan of the thorax is performed without IV contrast. FINDINGS: There is no suspicious lung mass or nodule. There is no abnormal airspace/consolidative density or abnormal interstitial density. There is no pleural effusion, pleural thickening or pneumothorax. The great vessels the chest are nor mal and there is no mediastinal, hilar or axillary adenopathy. There is a large hiatal hernia with a partially intrathoracic stomach. No focal osseous lesions are seen. IMPRESSION: 1. No acute cardia pulmonary disease. 2. Large hiatal hernia with partially intrathoracic stomach
== END | disposition home or self-care (01) ==
LOC: RADCTMAIN 08:15
PROVIDERS: ATTEND Family Medicine
DX: Z09 Encounter for follow-up examination after completed treatment for conditions other than malignant neoplasm (principal); K44.9 Diaphragmatic hernia without obstruction or gangrene; R07.9 Chest pain, unspecified; R06.02 Shortness of breath
CPT/HCPCS: 71250

== ENCOUNTER → 2023-10-30 | Outpatient (CLI) | payer MEDICAID ==
--- NOTE | 2023-10-30 15:12 | US ---
EXAMINATION TYPE: US abdomen complete DATE OF EXAM: 10/30/2023 COMPARISON: NONE CLINICAL INDICATION: Male, 48 years old with history of R10.13 EPIGASTRIC PAIN; pain TECHNIQUE: Multiple sonographic images of the abdomen are obtained. FINDINGS: EXAM MEASUREMENTS: Liver Length: 16.7 cm Gallbladder Wall: .3 cm CBD: .4 cm Spleen: 11.1 cm Right Kidney: 10.6 x 5.5 x 4.5 cm Left Kidney: 11.0 x 5.5 x 4.5 cm Pancreas: Obscured by bowel gas Liver: Increased attenuation Gallbladder: No stones seen Evidence for sonographic Bruce's sign: No CBD: wnl Spleen: wnl Right Kidney: wnl Left Kidney: Lobulated renal cortex. No hydronephrosis. Upper IVC: wnl Abd Aorta: wnl IMPRESSION: 1. Moderate to severe hepatic steatosis. Correlate with LFTs, lipid profile, and patient risk factors . Appropriate clinical management is recommended. 2. No gallstones or biliary ductal dilatation.
== END | disposition home or self-care (01) ==
LOC: RADUSWWP 07:10
PROVIDERS: ATTEND Family Medicine
DX: K76.0 Fatty (change of) liver, not elsewhere classified (principal); R10.13 Epigastric pain
CPT/HCPCS: 76700

== ENCOUNTER → 2023-11-06 | Outpatient (CLI) | payer MEDICAID ==
--- NOTE | 2023-11-06 19:44 | CT ---
EXAMINATION TYPE: CT sinus wo con DATE OF EXAM: 11/06/2023 COMPARISON: None HISTORY: Chronic sinusitis and right ear pain x years CT DLP: 568.6 mGycm CONTRAST: 0 mL of Isovue 300 The paranasal sinuses are examined in the axial plane at 2 mm thick sections. Reconstructed images i n the coronal plane were obtained. There is dental amalgam scatter artifact There is a tiny retention cyst in the anterior left maxillary sinus. The ethmoid air cells are clear . The sphenoid sinuses are clear. The frontal sinuses are clear. The septum is evaluated. There is minimal septal deviation. There is been prior bilateral uncinectomies IMPRESSION: 1. Tiny retention cyst within the inferior anterior maxillary sinus. Paranasal sinuses otherwise britt ear remarkable.
--- NOTE | 2023-11-07 08:18 | CT ---
EXAMINATION TYPE: CT iac wo con DATE OF EXAM: 11/06/2023 COMPARISON: None HISTORY: Chronic sinusitis and right ear pain x years CT DLP: 150.0 mGycm Automated exposure control for dose reduction was used. Contrast: None Technique: Axial images 1 mm thick sections. Reconstructed images in the coronal plane. FINDINGS: There is a small retention cyst within the anterior left maxillary sinus. Sphenoid sinuses are clear. There is been prior uncinectomy and ethmoidectomy. There is normal aeration of the mastoid air cells. Temporomandibular joints appear normal. External auditory canals are patent. Middle ears are clear. Incus and malleus have normal orientation . Scutum are normal. Cochlea and semicircular canals are normal. Internal auditory canals appear norm al without expansion or erosion cerebellar pontine angles appear normal. IMPRESSION: 1. POSTSURGICAL CHANGES WITHIN THE VISUALIZED PARANASAL SINUSES. 2. NO SUSPICIOUS ABNORMALITIES TO ACCOUNT FOR RIGHT EAR PAIN
== END | disposition home or self-care (01) ==
LOC: RADCTMAIN 17:10
PROVIDERS: ATTEND Otolaryngology
DX: J34.1 Cyst and mucocele of nose and nasal sinus (principal); H92.01 Otalgia, right ear; G50.1 Atypical facial pain; Z98.890 Other specified postprocedural states
CPT/HCPCS: 70480; 70486

== ENCOUNTER → 2024-01-08 | Outpatient (CLI) | payer MEDICAID ==
--- NOTE | 2024-01-08 19:48 | XR ---
EXAMINATION TYPE: XR orbit complete bilateral DATE OF EXAM: 01/08/2024 COMPARISON: None HISTORY: Metal in eye TECHNIQUE: 3 view orbits FINDINGS: No radiopaque foreign bodies contraindicate MRI in or about the orbits within the field-of- view. Selle is unremarkable. Paranasal sinuses are clear. IMPRESSION: 1. No metallic foreign bodies in or about the orbits to contraindicate MRI
== END | disposition home or self-care (01) ==
LOC: RADXRMAIN 17:08
PROVIDERS: ATTEND Psychiatry & Neurology Neurology
DX: Z18.10 Retained metal fragments, unspecified (principal)
CPT/HCPCS: 70200

== ENCOUNTER → 2024-01-16 | Outpatient (CLI) | payer MEDICAID ==
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
== END | disposition home or self-care (01) ==
LOC: RADMRIMAIN 21:15
PROVIDERS: ATTEND Psychiatry & Neurology Neurology
DX: M47.812 Spondylosis without myelopathy or radiculopathy, cervical region (principal); M50.223 Other cervical disc displacement at C6-C7 level; R90.82 White matter disease, unspecified; J32.2 Chronic ethmoidal sinusitis
CPT/HCPCS: 70553; 72156; A9585

== ENCOUNTER → 2024-04-26 | Outpatient (CLI) | payer MEDICAID ==
[2024-04-26 11:13] LABS: BUN/Creat Ratio 22.22 Ratio (12.00-20.00); Calcium 9.5 mg/dL (8.7-10.3); Carbon Dioxide 22.9 mmol/L (21.6-31.8); Chloride 106 mmol/L (96-109); Glucose 113 mg/dL (70-110); Potassium 4.4 mmol/L (3.5-5.5); Sodium 141 mmol/L (135-145)
== END | disposition home or self-care (01) ==
LOC: LABWHC1 07:16
PROVIDERS: ATTEND Nurse Practitioner
DX: I10 Essential (primary) hypertension (principal); R53.83 Other fatigue
CPT/HCPCS: 36415; 80048; 84443

== ENCOUNTER → 2024-05-03 | Outpatient (CLI) | payer MEDICAID ==
--- NOTE | 2024-05-03 18:09 | CT ---
EXAMINATION TYPE: CT iac wo con CT DLP: 283 mGycm, Automated exposure control for dose reduction was used. DATE OF EXAM: 05/03/2024 5:58 PM INDICATION: Patient age:Male; 48 years old; Reason for study: H70.90 MASTOIDITIS; PHH. COMPARISON: None. TECHNIQUE: Multiple thin axial images were obtained through the temporal bones and internal auditory canals. Additional coronal reformatted images were obtained. No IV contrast was utilized. STENVER a nd POSCHL views were created on a separate work station. CT Contrast: mL of , none. FINDINGS: Right Temporal Bone: External Ear: The external auditory canal is unremarkable, The tympanic membrane is present and unrem arkable. Middle Ear: Trace fluid within the right middle ear. The ossicles demonstrate a normal appearance. Prussak's space is clear and the scutum is intact. There is no evidence of osseous erosion and the te gmen tympani is intact. Inner Ear: Cochlea, vestibule and semi circular canals are unremarkable. No evidence of carotid donna l dehiscence. Two and a half turns of the cochlea are identified. The vestibular aqueduct is not enl arged. Mastoid Air Cells: The mastoid air cells are clear. The tegmen mastoideum is intact. The aditus ad an trum is clear. Internal Auditory Canal: The internal auditory canal is unremarkable. Left Temporal Bone: External Ear: The external auditory canal is unremarkable, The tympanic membrane is present and unrem arkable. Middle Ear: The ossicles demonstrate a normal appearance. Prussak's space is clear and the scutum is intact. There is no evidence of osseous erosion and the tegmen tympani is intact. Inner Ear: Cochlea, vestibule and semi circular canals are unremarkable. No evidence of carotid donna l dehiscence. Two and a half turns of the cochlea are identified. The vestibular aqueduct is not enl arged. Mastoid Air Cells: The mastoid air cells are clear. The tegmen mastoideum is intact. The aditus ad an trum is clear. Internal Auditory Canal: The internal auditory canal is unremarkable. Other: Mild paranasal sinus mucosal thickening. Postsurgical changes with an antrostomy changes bilat erally. IMPRESSION: 1. No evidence for mastoiditis. Mastoid air cells are clear bilaterally. 2. Trace right middle ear effusion.
== END | disposition home or self-care (01) ==
LOC: RADCTMAIN 17:38
PROVIDERS: ATTEND Otolaryngology
DX: H70.11 Chronic mastoiditis, right ear (principal)
CPT/HCPCS: 70480

== ENCOUNTER → 2024-05-26 | Outpatient (CLI) | payer MEDICAID ==
--- NOTE | 2024-06-29 15:53 | US ---
Site ID [facility] Patient Chinmay Jesus ID [id number] Age/Gender: 48Y, N/A Order # N/A Procedure US carotid duplex BILAT Date 05/26/2024 4:19:00 PM EXAMINATION TYPE: US carotid duplex BILAT DATE OF EXAM: 06/06/2024 COMPARISON: None, please note PACS Production downtime occurred during the radiologist interpretation of these images with limited priors/reports. CLINICAL INDICATION: 48 year old with history of stenosis; dizziness TECHNIQUE: Carotid duplex ultrasound examination. Indirect Doppler criteria was utilized. FINDINGS: EXAM MEASUREMENTS: RIGHT: Peak Systolic Velocity (PSV) cm/sec ----- Right CCA: 118 ----- Right ICA: 147 ----- Right ECA: 158 ICA/CCA ratio: 1.3 RIGHT: End Diastole cm/sec ----- Right CCA: 87.9 ----- Right ICA: 26.1 ----- Right ECA: 22.3 LEFT: Peak Systolic Velocity (PSV) cm/sec ----- Left CCA: 120 ----- Left ICA: 92.6 ----- Left ECA: 113 ICA/CCA ratio: 0.9 LEFT: End Diastole cm/sec ----- Left CCA: 29.9 ----- Left ICA: 14.9 ----- Left ECA: 12.3 VERTEBRALS (direction of flow): Right Vertebral: Antegrade Left Vertebral: Antegrade DIRECTOR CLINICAL DATA NOTES: Bilateral bifurcation high-difficult to visualize ICA bilaterally. Slightly high v elocities however no significant stenosis visualized. IMPRESSION: No ultrasound evidence for hemodynamically significant stenosis of the bilateral visualized carotid s ystems. Criteria for Assigning % of Stenosis / Diameter reduction (Estimation based on the indirect measurements of the internal carotid artery velocities (ICA PSV). 1. Normal (no stenosis)=ICA PSV < 125 cm/s: ratio < 2.0: ICA EDV<40 cm/s. 2. Less than 50% stenosis=ICA PSV < 125 cm/s: ratio < 2.0: ICA EDV<40 cm/s. 3. 50 to 69% stenosis=ICA PSV of 125 to 230 cm/s: ration 2.0 ? 4.0: ICA EDV 40-100 cm/s. 4. Greater than 70% stenosis to near occlusion= ICA PSV > 230 cm/s: ratio > 4.0: ICA EDV > 100 cm/s. 5. Near occlusion= ICA PSV velocities may be low or undetectable: variable ratio and ICA EDV. 6. Total occlusion=unable to detect flow.
== END | disposition home or self-care (01) ==
LOC: RADUSWWP 17:44
PROVIDERS: ATTEND Psychiatry & Neurology Neurology
DX: R90.89 Other abnormal findings on diagnostic imaging of central nervous system (principal)
CPT/HCPCS: 93880

== ENCOUNTER 2024-11-06 12:55 | Emergency (ER) | payer MEDICAID ==
[2024-11-06 13:14] VITALS: RESP 18
--- NOTE | 2024-11-06 13:24 | ED ---
General Adult HPI - General Chief complaint: Weakness Stated complaint: Poss methanol pois Time Seen by Provider: 11/06/24 13:23 Source: patient, family Mode of arrival: ambulatory Limitations: no limitations - History of Present Illness Initial comments: Patient presents to the ED with his for evaluation. Patient states that he was at work when he accidentally got some "air break antifreeze" in his eyes about 24 hours ago today. Patient states that this air break antifreeze contained methanol, and he is concerned about possible methanol toxicity. Patient states that he was seen by his eye doctor after this exposure yesterday, and he said that his eye doctor told him that his eyes were fine on examination. Patient states that he has felt somewhat "off" today. He reports having symptoms of a mild headache, as well as an unusual taste in his mouth. Patient denies visual changes, loss of vision, eye pain, trauma or injury, any other e xposures, numbness/weakness/focal neuro deficit, chest pain or pressure, dyspnea, palpitations, dizziness, abdominal pain, nausea or vomiting, diarrhea, dysuria or urinary symptoms, decreased urine output, or any other symptoms or complaints. - Related Data Home Medications Medication Instructions Recorded Confirmed Pantoprazole Sodium [Protonix] 40 mg PO BID 10/11/16 10/06/23 Albuterol Inhaler [Ventolin Hfa 2 puff INHALATION RT-TID PRN 07/05/22 10/06/23 Inhaler] Fluticasone Nasal [place] [Flonase 2 spray EA NOSTRIL DAILY 10/06/23 10/06/23 Nasal [place]] Fluticasone/Umeclidin/Vilanter 1 puff INHALATION RT-DAILY 10/06/23 10/06/23 [Trelejohsua Ellipta 200-62.5-25] Metoprolol Tartrate [Lopressor] 25 mg PO DAILY 10/06/23 10/06/23 Previous Rx's Medication Instructions Recorded Montelukast [Singulair] 10 mg PO DAILY #90 tab 10/06/23 methylPREDNISolone Dose Pack 4 mg PO DIRECTED #1 packet 10/06/23 [Medrol Dose Pack] Allergies Allergy/AdvReac Type Severity Reaction Status Date / Time bacitracin Allergy Rash/Hives Verified 11/06/24 13:07 cephalexin [From Keflex] Allergy Rash/Hives Verified 11/06/24 13:07 clindamycin Allergy Anaphylaxis Verified 11/06/24 13:07 codeine Allergy Nausea & Verified 11/06/24 13:07 Vomiting/Rash Iodinated Contrast Media Allergy Rash/Hives Verified 11/06/24 13:07 neomycin Allergy Rash/Hives Verified 11/06/24 13:07 [From Neosporin ([id number])] polymyxin B Allergy Rash/Hives Verified 11/06/24 13:07 [From Neosporin ([id number])] tetracycline Allergy Rash/Hives Verified 11/06/24 13:07 Review of Systems ROS Statement: Those systems with pertinent positive or pertinent negative responses have been documented in the HPI. ROS Other: All systems not noted in ROS Statement are negative. Past Medical History Past Medical History: Asthma, Cancer, GERD/Reflux, Hyperlipidemia, Osteoarthritis (OA) Additional Past Medical History / Comment(s): HIATAL HERNIA, Recurrent ear infections and ruptured eardrums. Chronic back pain.Patient also has history of carbon monoxide exposure/toxicity 2018-still w/frequent headaches, skin cancer, covid in January-antibody infusion, approx. week after had episode of syncope @home, EMS came, very low heart rate, has seen card. regarding but no obvious problems found per pt. History of Any Multi-Drug Resistant Organisms: None Reported Past Surgical History: Hernia Repair, Tonsillectomy Additional Past Surgical History / Comment(s): RIGHT AND LEFT EAR SURGERY, SINUS SURGERY, LEFT WRIST, LEFT HAND SURGERY, HERNIA REPAIR X2. COLONOSCOPY, EGD's, right shoulder rotator cuff repair Past Anesthesia/Blood Transfusion Reactions: No Reported Reaction Past Psychological History: No Psychological Hx Reported Smoking Status: Former smoker Past Alcohol Use History: None Reported Past Drug Use History: None Reported - Past Family History Mother Family Medical History: No Reported History Additional Family Medical History / Comment(s): heart valve problem,irregulare heart beat Father Family Medical History: No Reported History General Exam Limitations: no limitations General appearance: alert, in no apparent distress Head exam: Present: atraumatic, normocephalic Eye exam: Present: normal appearance, PERRL, EOMI ENT exam: Present: mucous membranes moist Respiratory exam: Present: normal lung sounds bilaterally. Absent: respiratory distress, wheezes, rales, rhonchi, stridor Cardiovascular Exam: Present: regular rate, normal rhythm, normal heart sounds, other (Normal radial pulses bilaterally) GI/Abdominal exam: Present: soft. Absent: distended, tenderness, guarding Extremities exam: Absent: pedal edema Neurological exam: Present: alert, oriented X3, CN II-XII intact. Absent: motor sensory deficit Skin exam: Present: warm, dry, normal color Course Vital Signs 11/06/24 13:07 Temperature 97.5 F L Pulse Rate 109 H Respiratory 18 Rate Blood Pressure 134/84 O2 Sat by Pulse 97 Oximetry - Reevaluation(s) Reevaluation #1: 11/06/24 16:45 Patient denies development of any new symptoms while in the ED. Patient remains alert and breathing comfortably. Patient is aware of his test results, and he feels comfortable being discharged home at this time. I explained to the patient that the volatile alcohols sent on his lab work will not result today, but we will call him if anything is abnormal. I have also explained to him that an eye exposure to antifreeze is very unlikely to cause any significant methanol exposure/toxicity. Patient was counseled about methanol exposure and headaches, and he was clearly explained return and follow-up instructions. He was instructed to follow-up closely with his primary care provider. He feels comfortable with this plan. EKG Findings - EKG Comments: EKG Findings:: ED physician interpretation (interpreted by me): Normal sinus rhythm, no ectopy, ventricular rate of 77 bpm, normal NE and QRS intervals, normal QT interval, normal axis, no ST or T wave abnormality Medical Decision Making - Medical Decision Making Was pt. sent in by a medical professional or institution (Dr. PA, FIELD ACCOUNT DIRECTOR, urgent care, hospital, or penitentiary...) When possible be specific @ -No Did you speak to anyone other than the patient for history (EMS, parent, family, police, friend...)? What history was obtained from this source @ -No Did you review nursing and triage notes (agree or disagree)? Why? @ -I reviewed and agree with nursing and triage notes Were old charts reviewed (outside hosp., previous admission, EMS record, old EKG, old radiological studies, urgent care reports/EKG's, penitentiary records)? Report findings @ -No old charts were reviewed Differential Diagnosis (chest pain, altered mental status, abdominal pain women, abdominal pain men, vaginal bleeding, weakness, fever, dyspnea, syncope, headache, dizziness, GI bleed, back pain, seizure, CVA, palpatations, mental health, musculoskeletal)? @ -Chemical exposure, methanol exposure, chemical conjunctivitis, methanol toxicity, headache, migraine, tension headache, anxiety, this is not meant to be a complete list. EKG interpreted by me (3pts min.). @ -As above X-rays interpreted by me (1pt min.). @ -None done CT interpreted by me (1pt min.). @ -None done U/S interpreted by me (1pt. min.). @ -None done What testing was considered but not performed or refused? (CT, X-rays, U/S, labs)? Why? @ -None What meds were considered but not given or refused? Why? @ -None Did you discuss the management of the patient with other professionals (professionals i.e. , PA, FIELD ACCOUNT DIRECTOR, lab, RT, psych nurse, social science instructor, ui architect, teacher, asset protection officer, community case manager)? Give summary @ -No Was smoking cessation discussed for >3mins.? @ -No Was critical care preformed (if so, how long)? @ -No Were there social determinants of health that impacted care today? How? (Homeles sness, low income, unemployed, alcoholism, drug addiction, transportation, low edu. Level, literacy, decrease access to med. care, custodial, rehab)? @ -No Was there de-escalation of care discussed even if they declined (Discuss DNR or withdrawal of care, Hospice)? DNR status @ -No What co-morbidities impacted this encounter? (DM, HTN, Smoking, COPD, CAD, Cancer, CVA, ARF, Chemo, Hep., AIDS, mental health diagnosis, sleep apnea, morbid obesity)? @ -None Was patient admitted / discharged? Hospital course, mention meds given and route, prescriptions, significant lab abnormalities, going to OR and other pertinent info. @ -Patient reports high exposure to methanol-containing antifreeze about 24 h ours ago. Patient denies ingesting any of this antifreeze. Patient denies trauma or injury. Patient denies having any visual changes or eye complaints at this time. Patient's labs are fairly unremarkable. A volatile alcohol panel was sent, but it is apparently a send out lab. I do not suspect significant toxicity from an eye exposure. Patient feels comfortable being discharged home at this time. Undiagnosed new problem with uncertain prognosis? @ -No Drug Therapy requiring intensive monitoring for toxicity (Heparin, Nitro, Insulin, Cardizem)? @ -No Were any procedures done? @ -No Diagnosis/symptom? @ -Headache, methanol exposure Acute, or Chronic, or Acute on Chronic? @ -Acute Uncomplicated (without systemic symptoms) or Complicated (systemic symptoms)? @ -Default Side effects of treatment? @ -No Exacerbation, Progression, or Severe Exacerbation? @ -No Poses a threat to life or bodily function? How? (Chest pain, USA, MD, pneumonia, PE, COPD, DKA, ARF, appy, cholecystitis, CVA, Diverticulitis, Homicidal, Suicidal, threat to staff... and all critical care pts) @ -No - Lab Data Result diagrams: 11/06/24 13:34 11/06/24 13:34 Lab Results 11/06/24 11/06/24 11/06/24 Range/Units 13:34 13:34 13:34 WBC 9.3 (3.8-10.6) k/uL RBC 5.04 (4.30-5.90) m/uL Hgb 15.8 (13.0-17.5) gm/dL Hct 47.0 (39.0-53.0) % MCV 93.3 (80.0-100.0) fL MCH 31.4 (25.0-35.0) pg MCHC 33.7 (31.0-37.0) g/dL RDW 12.9 (11.5-15.5) % Plt Count 217 (150-450) k/uL MPV 7.1 Neutrophils % 83 % Lymphocytes % 13 % Monocytes % 3 % Eosinophils % 1 % Basophils % 0 % Neutrophils # 7.7 (1.3-7.7) k/uL Lymphocytes # 1.2 (1.0-4.8) k/uL Monocytes # 0.2 (0-1.0) k/uL Eosinophils # 0.1 (0-0.7) k/uL Basophils # 0.0 (0-0.2) k/uL Sodium 139 (137-145) mmol/L Potassium 4.0 (3.5-5.1) mmol/L Chloride 101 (98-107) mmol/L Carbon Dioxide 26 (22-30) mmol/L Anion Gap 12 mmol/L BUN 17 (9-20) mg/dL Creatinine 0.86 (0.66-1.25) mg/dL Est GFR (CKD-EPI)AfAm >90 (>60 ml/min/1.73 sqM) Est GFR (CKD-EPI)NonAf >90 (>60 ml/min/1.73 sqM) Glucose 132 H (74-99) mg/dL Calcium 9.7 (8.4-10.2) mg/dL Total Bilirubin 0.7 (0.2-1.3) mg/dL AST 28 (17-59) U/L ALT 35 (4-49) U/L Alkaline Phosphatase 75 (38-126) U/L Troponin I (0.000-0.034) ng/mL Total Protein 7.5 (6.3-8.2) g/dL Albumin 4.6 (3.5-5.0) g/dL Urine Color Yellow Urine Appearance Clear (Clear) Urine pH 6.0 (5.0-8.0) Ur Specific [place] 1.028 (1.001-1.035) Urine Protein Trace H (Negative) Urine Glucose (UA) Negative (Negative) Urine Ketones Negative (Negative) Urine Blood Negative (Negative) Urine Nitrite Negative (Negative) Urine Bilirubin Negative (Negative) Urine Urobilinogen <2.0 (<2.0) mg/dL Ur Leukocyte Esterase Negative (Negative) Serum Alcohol <10 mg/dL 11/06/24 Range/Units 13:34 WBC (3.8-10.6) k/uL RBC (4.30-5.90) m/uL Hgb (13.0-17.5) gm/dL Hct (39.0-53.0) % MCV (80.0-100.0) fL MCH (25.0-35.0) pg MCHC (31.0-37.0) g/dL RDW (11.5-15.5) % Plt Count (150-450) k/uL MPV Neutrophils % % Lymphocytes % % Monocytes % % Eosinophils % % Basophils % % Neutrophils # (1.3-7.7) k/uL Lymphocytes # (1.0-4.8) k/uL Monocytes # (0-1.0) k/uL Eosinophils # (0-0.7) k/uL Basophils # (0-0.2) k/uL Sodium (137-145) mmol/L Potassium (3.5-5.1) mmol/L Chloride (98-107) mmol/L Carbon Dioxide (22-30) mmol/L Anion Gap mmol/L BUN (9-20) mg/dL Creatinine (0.66-1.25) mg/dL Est GFR (CKD-EPI)AfAm (>60 ml/min/1.73 sqM) Est GFR (CKD-EPI)NonAf (>60 ml/min/1.73 sqM) Glucose (74-99) mg/dL Calcium (8.4-10.2) mg/dL Total Bilirubin (0.2-1.3) mg/dL AST (17-59) U/L ALT (4-49) U/L Alkaline Phosphatase (38-126) U/L Troponin I <0.012 (0.000-0.034) ng/mL Total Protein (6.3-8.2) g/dL Albumin (3.5-5.0) g/dL Urine Color Urine Appearance (Clear) Urine pH (5.0-8.0) Ur Specific [place] (1.001-1.035) Urine Protein (Negative) Urine Glucose (UA) (Negative) Urine Ketones (Negative) Urine Blood (Negative) Urine Nitrite (Negative) Urine Bilirubin (Negative) Urine Urobilinogen (<2.0) mg/dL Ur Leukocyte Esterase (Negative) Serum Alcohol mg/dL Disposition Clinical Impression: Headache, Exposure to methanol Disposition: HOME SELF-CARE Condition: Stable Instructions (If sedation given, give patient instructions): Acute Headache (ED) Additional Instructions: Return to the ER should you develop new or worsening pain, numbness or weakness, a seizure, a fever, chest pain, shortness of breath, feeling dizzy or faint, visual changes, or new or worsening symptoms. Follow-up closely with your primary care provider. Is patient prescribed a controlled substance at d/c from ED?: No Referrals: Chacho Lee MD [Primary Care Provider] - 1-2 days Time of Disposition: 16:47
[2024-11-06 13:57] LABS: Basophils % (A) 0 %; Eosinophils # (A) 0.1 k/uL (0-0.7); Eosinophils % (A) 1 %; HGB 15.8 gm/dL (13.0-17.5); Lymphocytes # (A) 1.2 k/uL (1.0-4.8); Lymphocytes % (A) 13 %; MCH 31.4 pg (25.0-35.0); MCHC 33.7 g/dL (31.0-37.0); MCV 93.3 fL (80.0-100.0); Mean Platelet Volume 7.1; Monocytes # (A) 0.2 k/uL (0-1.0); Monocytes % (A) 3 %; Neutrophils # (A) 7.7 k/uL (1.3-7.7); Neutrophils % (A) 83 %; Platelet Count 217 k/uL (150-450); RBC 5.04 m/uL (4.30-5.90); RDW 12.9 % (11.5-15.5); WBC 9.3 k/uL (3.8-10.6)
[2024-11-06 14:08] LABS: ALT 35 U/L (4-49); AST 28 U/L (17-59); African American GFR (CKD) >90 (>60 ml/min/1.73 sqM); Albumin 4.6 g/dL (3.5-5.0); Alcohol <10 mg/dL; Alkaline Phosphatase 75 U/L (38-126); Anion Gap 12 mmol/L; Blood Urea Nitrogen 17 mg/dL (9-20); Calcium 9.7 mg/dL (8.4-10.2); Carbon Dioxide 26 mmol/L (22-30); Chloride 101 mmol/L (98-107); Glucose 132 mg/dL (74-99); Non-African American GFR(CKD) >90 (>60 ml/min/1.73 sqM); Sodium 139 mmol/L (137-145); Total Bilirubin 0.7 mg/dL (0.2-1.3); Total Protein 7.5 g/dL (6.3-8.2)
[2024-11-06 14:17] LABS: Appearance,Urine Clear (Clear); Bilirubin,Urine Negative (Negative); Blood,Urine Negative (Negative); Color,Urine Yellow; Glucose,Urine (UA) Negative (Negative); Ketones,Urine Negative (Negative); Leukocyte Esterase,Urine Negative (Negative); Nitrite,Urine Negative (Negative); Protein,Urine Trace (Negative); Specific Gravity,Urine 1.028 (1.001-1.035); Urobilinogen,Urine <2.0 mg/dL (<2.0)
[2024-11-06 17:01] VITALS: BP 132/78; PULSE 98; TEMP 97.7
== END 2024-11-06 17:00 | disposition home or self-care (01) ==
LOC: EC 12:55
DX: R51.9 Headache, unspecified (principal); Z87.891 Personal history of nicotine dependence; Z88.1 Allergy status to other antibiotic agents; Z91.041 Radiographic dye allergy status; Z88.8 Allergy status to other drugs, medicaments and biological substances; Z86.16 Personal history of COVID-19
CPT/HCPCS: 36415; 80053; 80320; 81003; 84484; 84600; 85025; 93005; 99285

== ENCOUNTER → 2024-11-09 | Outpatient (CLI) | payer MEDICAID ==
--- NOTE | 2024-11-09 15:22 | XR ---
EXAMINATION TYPE: XR KUB DATE OF EXAM: 11/09/2024 2:39 PM COMPARISON: None. CLINICAL INDICATION: Male, 49 years old with history of R10.9 UNSPECIFIED ABDOMINAL PAIN, , FINDINGS: Supine imaging limited for assessment of free air. Mild to moderate stool in the right side of the abdomen. No dilated small bowel loops. Suspect a couple phleboliths in the right side of the pelvis. IMPRESSION: Nonobstructive bowel gas pattern. [id number] stool in the right side of the abdomen . [facility], Workstation: [facility], 11/09/2024 3:19 PM
[2024-11-09 19:30] LABS: Basophils # (A) 0.03 X 10*3/uL (0.00-0.10); Basophils % (A) 0.4 %; Eosinophils # (A) 0.02 X 10*3/uL (0.04-0.35); Eosinophils % (A) 0.2 %; HCT 43.7 % (39.6-50.0); HGB 14.8 g/dL (13.0-17.0); MCH 30.5 pg (27.0-32.0); MCHC 33.9 g/dL (32.0-37.0); MCV 90.1 FL (80.0-97.0); Monocytes # (A) 0.48 X 10*3/uL (0.20-1.00); Monocytes % (A) 5.9 %; NRBC Per 100 WBC 0 X 10*3/uL (0.00-0.01); Neutrophils # (A) 5.83 X 10*3/uL (1.80-7.70); Neutrophils % (A) 72.3 %; Platelet Count 245 X 10*3/uL (140-440); RBC 4.85 X 10*6/uL (4.40-5.60); WBC 8.08 X 10*3/uL (4.50-10.00)
[2024-11-09 20:01] LABS: ALT 31 U/L (10-49); AST 25 U/L (14-35); Albumin 4.6 g/dL (3.8-4.9); Albumin/Globulin Ratio 1.77 Ratio (1.60-3.17); Alkaline Phosphatase 82 U/L (41-126); BUN/Creat Ratio 21.33 Ratio (12.00-20.00); Blood Urea Nitrogen 19.2 mg/dL (9.0-27.0); Calcium 9.4 mg/dL (8.7-10.3); Carbon Dioxide 24.8 mmol/L (21.6-31.8); Chloride 101 mmol/L (96-109); Globulin 2.6 g/dL (1.6-3.3); Glucose 88 mg/dL (70-110); Potassium 4.3 mmol/L (3.5-5.5); Sodium 138 mmol/L (135-145); Total Bilirubin 0.6 mg/dL (0.3-1.2); Total Protein 7.2 g/dL (6.2-8.2)
== END | disposition home or self-care (01) ==
LOC: LABWHC1 14:23
PROVIDERS: ATTEND Family Medicine
DX: R10.9 Unspecified abdominal pain (principal); R42 Dizziness and giddiness
CPT/HCPCS: 36415; 74018; 80053; 85025

== ENCOUNTER → 2025-02-01 | Outpatient (CLI) | payer MEDICAID ==
[2025-02-01 18:38] LABS: ALT 32 U/L (10-49); AST 22 U/L (14-35)
== END | disposition home or self-care (01) ==
LOC: LABWHC1 13:34
PROVIDERS: ATTEND Psychiatry & Neurology Neurology
DX: G43.909 Migraine, unspecified, not intractable, without status migrainosus (principal)
CPT/HCPCS: 36415; 84450; 84460

== ENCOUNTER → 2025-02-14 | Outpatient (CLI) | payer MEDICAID ==
--- NOTE | 2025-02-14 16:22 | CT ---
EXAMINATION TYPE: CT soft tissue neck w con CT DLP: 1150.5 mGycm, Automated exposure control for dose reduction was used. DATE OF EXAM: 02/14/2025 3:35 PM COMPARISON: CT IAC 05/03/2024, 11/06/2023, CT chest 10/10/2023. CLINICAL INDICATION:Male, 49 years old with history of R22.1 LOCALIZED SWELLING, MASS AND LUMP, NECK; PHH, neck mass TECHNIQUE: Standard enhanced CT of the neck following intravenous administration of 100 cc of Isovue 300. Axial sections with coronal and sagittal reformats were obtained. FINDINGS: Brain: Visualized portions are grossly unremarkable. Orbits: Unremarkable Sinuses: Grossly unremarkable. Suprahyoid Neck: The oropharynx, oral cavity, parapharyngeal and retropharyngeal spaces are clear and symmetric. Bilateral palatine tonsilloliths. The nasopharynx is unremarkable. Infrahyoid Neck: The larynx, hypopharynx, and supraglottic area are clear and symmetric. Parotid Glands: Unremarkable. Submandibular Glands: Unremarkable. Musculoskeletal: No acute osseous pathology. Degenerative disc disease at C6-C7. Lymph nodes: No pathologically enlarged lymph nodes identified greater than 1 cm short axis. Vascular structures: Visualized major arteries are patent without evidence of aneurysm. Thoracic Inlet/airway: Airway is patent. The lung apices are clear. Right upper lobe tracheal bronchu s. Soft tissues/Thyroid: Thyroid and remainder of the soft tissues are unremarkable. Other: Subcarinal calcified lymph nodes redemonstrated. IMPRESSION: No CT evidence for abnormality corresponding to patient's symptomatology. [facility], , 02/14/2025 4:20 PM
== END | disposition home or self-care (01) ==
LOC: RADCTMAIN 15:10
PROVIDERS: ATTEND Otolaryngology
DX: R22.1 Localized swelling, mass and lump, neck (principal)
CPT/HCPCS: 70491; Q9967

== ENCOUNTER → 2025-03-31 | Outpatient (CLI) | payer MEDICAID ==
[2025-03-31 16:52] LABS: Appearance,Urine Clear (Clear); Bilirubin,Urine Negative (Negative); Blood,Urine Trace (Negative); Color,Urine Light Yellow; Glucose,Urine (UA) Negative (Negative); Ketones,Urine Negative (Negative); Leukocyte Esterase,Urine Small (Negative); Mucus,Urine Rare /hpf; Nitrite,Urine Negative (Negative); Protein,Urine Negative (Negative); RBC,Urine 1 /hpf (0-5); Specific Gravity,Urine 1.024 (1.001-1.035); Urobilinogen,Urine <2.0 mg/dL (<2.0); WBC,Urine 6 /hpf (0-5)
[2025-03-31 19:52] LABS: ALT 28 U/L (10-49); AST 20 U/L (14-35); Albumin 4.5 g/dL (3.8-4.9); Albumin/Globulin Ratio 1.73 Ratio (1.60-3.17); Alkaline Phosphatase 70 U/L (41-126); Blood Urea Nitrogen 20.5 mg/dL (9.0-27.0); Calcium 9.2 mg/dL (8.7-10.3); Carbon Dioxide 26.6 mmol/L (21.6-31.8); Chloride 102 mmol/L (96-109); Globulin 2.6 g/dL (1.6-3.3); Glucose 86 mg/dL (70-110); Potassium 4.2 mmol/L (3.5-5.5); Sodium 140 mmol/L (135-145); Total Bilirubin 0.4 mg/dL (0.3-1.2); Total Protein 7.1 g/dL (6.2-8.2)
[2025-04-01 02:14] LABS: Basophils # (A) 0.04 X 10*3/uL (0.00-0.10); Basophils % (A) 0.5 %; Eosinophils # (A) 0.13 X 10*3/uL (0.04-0.35); Eosinophils % (A) 1.5 %; HGB 15.5 g/dL (13.0-17.0); Lymphocytes # (A) 2.25 X 10*3/uL (0.90-5.00); Lymphocytes % (A) 26.1 %; MCH 31.4 pg (27.0-32.0); MCV 95.3 FL (80.0-97.0); Mean Platelet Volume 10.1 FL (9.5-12.2); Monocytes # (A) 0.57 X 10*3/uL (0.20-1.00); Monocytes % (A) 6.6 %; NRBC Per 100 WBC 0 X 10*3/uL (0.00-0.01); Neutrophils # (A) 5.62 X 10*3/uL (1.80-7.70); Neutrophils % (A) 65.1 %; Platelet Count 225 X 10*3/uL (140-440); RBC 4.93 X 10*6/uL (4.40-5.60); RDW 13.2 % (11.5-14.5); WBC 8.63 X 10*3/uL (4.50-10.00)
== END | disposition home or self-care (01) ==
LOC: LABWHC1 16:17
PROVIDERS: ATTEND Family Medicine
DX: I10 Essential (primary) hypertension (principal); K44.9 Diaphragmatic hernia without obstruction or gangrene; N50.812 Left testicular pain; R10.11 Right upper quadrant pain; R10.2 Pelvic and perineal pain
CPT/HCPCS: 36415; 80053; 81001; 85025

== ENCOUNTER → 2025-05-09 | Outpatient (CLI) | payer MEDICAID ==
--- NOTE | 2025-05-10 07:21 | CT ---
EXAMINATION TYPE: CT pelvis wo con CT DLP: 659.50 mGycm, Automated exposure control for dose reduction was used. DATE OF EXAM: 05/09/2025 5:59 PM COMPARISON: CT renal stones 06/03/2017 CLINICAL INDICATION:Male, 49 years old with history of R10.30 LOWER ABDOMINAL PAIN, UNSPECIFIED; LOWE R ABD PAIN TECHNIQUE: Standard CT of the pelvis without IV or oral contrast. Lack of IV or oral contrast limit s evaluation of solid and hollow organ viscera. Coronal and sagittal reformats were performed. FINDINGS: BLADDER: Incompletely distended but grossly unremarkable. REPRODUCTIVE: Coarse calcifications of the prostate gland are identified. BOWEL: The appendix is within normal limits. No focal bowel wall thickening or surrounding inflammato ry changes identified. No evidence of bowel obstruction. PERITONEUM: No evidence of pneumoperitoneum or free fluid. VASCULATURE: Couple pelvic phleboliths. MUSCULOSKELETAL: No acute osseous abnormalities LYMPH NODES: No gross evidence for lymphadenopathy. SOFT TISSUE/ABDOMINAL WALL: Small fat filled umbilical hernia. Postsurgical changes from bilateral in guinal hernia repair. No evidence for recurrent hernia. IMPRESSION: No CT evidence for acute pelvic process within limitations of a noncontrast exam. [facility], , 05/10/2025 7:19 AM
== END | disposition home or self-care (01) ==
LOC: RADCTMAIN 17:40
PROVIDERS: ATTEND Surgery
DX: R10.30 Lower abdominal pain, unspecified (principal)
CPT/HCPCS: 72192